=== PATIENT | female | born 2000 | race Caucasian/White ===

== ENCOUNTER 2020-11-04 03:04 | Emergency (ER) | payer MEDICAID, SELFPAY ==
--- NOTE | ~2020-11-04 | CT_ITS ---
EXAMINATION: CT ABDOMEN AND PELVIS WITH CONTRAST CLINICAL INFORMATION: Right-sided pain COMPARISON: None TECHNIQUE: Multidetector volumetric images were obtained from the superior aspect of the liver through the pubic symphysis following administration 85 mL of Omnipaque 350 intravenous contrast. Sagittal and coronal reformatted images were obtained on the technologist's workstation. Oral contrast: Yes This CT examination was performed using dose optimization techniques as appropriate, variously including the following: *Automated exposure control *Adjustment of mA and/or kV according to patient size (this includes techniques or standardized protocols for targeted exams where dose is matched to indication/reason for exam; i.e. extremities or head) *Use of iterative reconstruction technique DLP: 635 mGy-cm FINDINGS: LUNG BASES: The visualized lung bases are unremarkable. LIVER, GALLBLADDER, AND BILIARY TREE: The liver is normal in size, shape, and attenuation. No focal hepatic lesion or biliary ductal dilatation is present. The gallbladder is unremarkable with no evidence of radiopaque gallstones, gallbladder wall thickening, or obvious pericholecystic inflammatory changes. PANCREAS: Unremarkable. SPLEEN: Unremarkable. ADRENAL GLANDS: Unremarkable. KIDNEYS AND URETERS: There are 2 small stones in the midpole of the right kidney measuring 1 and 2 mm. The kidneys are otherwise unremarkable. BLADDER: Unremarkable. GASTROINTESTINAL TRACT: The small and large bowel are unremarkable. The appendix is unremarkable. ABDOMINAL WALL: No significant hernia is appreciated. LYMPH NODES: Normal. VASCULAR: Unremarkable. PELVIC VISCERA: Unremarkable. OSSEOUS STRUCTURES: Unremarkable. CT/CT abdomen pelvis w con IMPRESSION: Small nonobstructing right renal stones.
[2020-11-04 03:22] VITALS: BP 146/88; PULSE 90; RESP 18; TEMP 37.4; O2SAT 97; BMI 36.6
--- NOTE | 2020-11-04 05:16 | ED.ABDPAIN ---
HPI - Abdominal Pain General Chief Complaint: Abdominal Pain Stated Complaint: abd pain Time Seen by Provider: 11/04/20 05:16 Source: patient Mode of arrival: ambulatory History of Present Illness HPI narrative: 20-year-old female presents after initially being evaluated at [facility] for a spectrum of symptoms which range from ?head fullness, dizziness, nausea with abdominal fullness as well as intermittent right-sided pain that is sharp, nonradiating?. Patient states that her symptoms are more severe today and says that it feels like she can not stand. Patient reports blurred vision that lasted approximately 3 minutes. Related Data Allergies Allergy/AdvReac Type Severity Reaction Status Date / Time cucumber [CUCUMBER] Allergy Unknown HIVES Verified 11/04/20 03:22 Review of Systems Review of Systems Pertinent positives and negatives as stated in HPI 10 point review of systems is otherwise negative. Physical Exam Vital Signs: Vital Signs: Last Vital Signs Temp 99.3 F 11/04/20 03:22 Pulse 63 11/04/20 06:13 Resp 14 11/04/20 06:13 BP 113/71 11/04/20 06:13 Pulse Ox 98 11/04/20 06:13 Body Mass Index 36.6 VITAL SIGNS: Reviewed. GENERAL: Well developed, well nourished, in no acute distress. HEAD: Normocephalic/atraumatic EYES: PERRLA, EOMI intact without pain, no nystagmus EARS: Ext canals without abnormality, TMs non-bulging and non-erythematous NOSE: Nares patent bilateral OROPHARYNX: no oral lesions noted, posterior pharynx clear and non-erythematous without noted tonsillar enlargement/erythema/exudates NECK: Supple, no adenopathy LUNGS: Normal breath sounds. No adventitious sounds or accessory muscle use. SpO2<97> CARDIOVASCULAR: Regular rate and rhythm without noted murmurs, no JVD or lower extremity edema. ABDOMEN: Obese, Soft, right upper quadrant discomfort on deep palpation, non-distended with bowel sounds. MUSCULOSKELETAL: No tenderness, deformities, or effusions noted on gross inspection. EXTREMITIES: No cyanosis, clubbing or edema. SKIN: Inspection of the skin reveals no rashes, ulcerations, jaundice, pallor, or petechiae. NEUROLOGIC: Alert and oriented x 4. Strength and sensation to light touch were grossly intact x 4. Course Course Course Narrative: 20-year-old female with history and clinical presentation suggestive of possible viral syndrome. Review of all investigations is otherwise illustrated of of a leukocytosis of 14.5 and given patient's clinical findings of abdominal discomfort will proceed with a CT scan. Otherwise, urinalysis is within normal limits and COVID-19 testing is negative Signed out to Dr Wood. MDM - Abdominal Pain Lab Data Result diagrams: 11/04/20 05:28 11/04/20 05:28 Labs: Lab Results 11/04/20 11/04/20 11/04/20 Range/Units 05:28 05:28 05:28 WBC 14.5 H (4.8-10.8) X10*3/uL RBC 5.08 (4.20-5.50) X10*6/uL Hgb 13.9 (12.0-16.0) g/dl Hct 43.3 (37-47) % MCV 85.2 (80-98) fL MCH 27.4 (27.0-33.0) pg MCHC 32.1 (31.0-35.0) g/dl RDW 12.4 (11.0-16.0) % Plt Count 335 (160-400) X10*3/uL MPV 9.6 (9.4-12.3) fL Immature Gran % (Auto) 0.3 (0.0-0.4) % Neut % (Auto) 68.7 (45-73) % Lymph % (Auto) 22.2 (20-40) % [place] % (Auto) 6.6 (2-11) % Eos % (Auto) 1.7 (0-4) % Baso % (Auto) 0.5 (0-2) % Lymph # (Auto) 3.2 (1.2-4.9) X10*3/uL [place] # (Auto) 1.0 (0.1-1.2) X10*3/uL Eos # (Auto) 0.3 (0.0-0.4) X10*3/uL Baso # (Auto) 0.1 (0.0-0.2) X10*3/uL Abs Immat Gran (auto) 0.05 H (0.00-0.03) X10*3/uL Absolute Neuts (auto) 10.0 H (2.0-8.3) X10*3/uL Absolute Nucleated RBC 0.000 (0.0-0.012) X10*3/uL Nucleated RBC % (auto) 0.0 (0.0-0.2) /100WBC PT 11.5 (9.9-13.0) SEC INR 1.0 (0.9-1.1) Sodium 140 (135-145) mmol/L Potassium 4.4 (3.3-5.1) mmol/L Chloride 106 (96-108) mmol/L Carbon Dioxide 27 (22-29) mmol/L Anion Gap 11 L (12-20) BUN 9 (9-16) mg/dL Creatinine 0.84 (0.5-1.4) mg/dL Estim Creat Clear Calc 124.0 Estimated GFR > 60 Random Glucose 98 (60-115) mg/dL Calcium 9.4 (8.4-10.2) mg/dL Total Bilirubin < 0.2 (0.0-1.0) mg/dL AST 15 (5-31) U/L ALT 11 (0-31) U/L Alkaline Phosphatase 101 (39-117) U/L Total Protein 6.8 (6.5-8.0) g/dL Albumin 4.0 (3.5-5.0) g/dL Urine Color Urine Appearance Urine pH (5.0-8.0) Ur Specific [place] (1.005-1.025) Urine Protein (NEG-TRACE) MG/DL Urine Glucose (UA) (NEG) MG/DL Urine Ketones (NEG) MG/DL Urine Blood (NEG) Urine Nitrite (NEG) Ur Leukocyte Esterase (NEG) Urine Test (NEGATIVE) Coronavirus (PCR) (Negative) Influenza Type A (PCR) (Negative) Influenza Type B (PCR) (Negative) RSV RNA Qual (PCR) (Negative) 11/04/20 11/04/20 11/04/20 Range/Units 05:28 06:14 06:15 WBC (4.8-10.8) X10*3/uL RBC (4.20-5.50) X10*6/uL Hgb (12.0-16.0) g/dl Hct (37-47) % MCV (80-98) fL MCH (27.0-33.0) pg MCHC (31.0-35.0) g/dl RDW (11.0-16.0) % Plt Count (160-400) X10*3/uL MPV (9.4-12.3) fL Immature Gran % (Auto) (0.0-0.4) % Neut % (Auto) (45-73) % Lymph % (Auto) (20-40) % [place] % (Auto) (2-11) % Eos % (Auto) (0-4) % Baso % (Auto) (0-2) % Lymph # (Auto) (1.2-4.9) X10*3/uL [place] # (Auto) (0.1-1.2) X10*3/uL Eos # (Auto) (0.0-0.4) X10*3/uL Baso # (Auto) (0.0-0.2) X10*3/uL Abs Immat Gran (auto) (0.00-0.03) X10*3/uL Absolute Neuts (auto) (2.0-8.3) X10*3/uL Absolute Nucleated RBC (0.0-0.012) X10*3/uL Nucleated RBC % (auto) (0.0-0.2) /100WBC PT (9.9-13.0) SEC INR (0.9-1.1) Sodium (135-145) mmol/L Potassium (3.3-5.1) mmol/L Chloride (96-108) mmol/L Carbon Dioxide (22-29) mmol/L Anion Gap (12-20) BUN (9-16) mg/dL Creatinine (0.5-1.4) mg/dL Estim Creat Clear Calc Estimated GFR Random Glucose (60-115) mg/dL Calcium (8.4-10.2) mg/dL Total Bilirubin (0.0-1.0) mg/dL AST (5-31) U/L ALT (0-31) U/L Alkaline Phosphatase (39-117) U/L Total Protein (6.5-8.0) g/dL Albumin (3.5-5.0) g/dL Urine Color YELLOW Urine Appearance CLEAR Urine pH 6.0 (5.0-8.0) Ur Specific [place] 1.025 (1.005-1.025) Urine Protein NEG (NEG-TRACE) MG/DL Urine Glucose (UA) NEG (NEG) MG/DL Urine Ketones NEG (NEG) MG/DL Urine Blood NEG (NEG) Urine Nitrite NEG (NEG) Ur Leukocyte Esterase NEG (NEG) Urine Test NEGATIVE (NEGATIVE) Coronavirus (PCR) NEGATIVE (Negative) Influenza Type A (PCR) NEGATIVE (Negative) Influenza Type B (PCR) NEGATIVE (Negative) RSV RNA Qual (PCR) NEGATIVE (Negative) Discharge Plan Discharge Clinical Impression: Abdominal discomfort Patient Disposition: Home, Self-Care Instructions: Viral Syndrome (ED) [facility] Past Medical History Source: nursing notes reviewed Social History Social History Advance Directives: No Advance Directives Information Provided: Yes Patient : No
[2020-11-04 05:31] LABS: MANUAL DIFF FLAG NO
[2020-11-04 05:37] LABS: Basophils Absolute Auto 0.1 X10*3/uL (0.0-0.2); Basophils Percent Auto 0.5 % (0-2); Eosinophils Absolute Auto 0.3 X10*3/uL (0.0-0.4); Eosinophils Percent Auto 1.7 % (0-4); Hematocrit 43.3 % (37-47); Hemoglobin 13.9 g/dl (12.0-16.0); Imm Gran Abs Auto 0.05 X10*3/uL (0.00-0.03); Imm Gran Pct Auto 0.3 % (0.0-0.4); Lymphocytes Absolute Auto 3.2 X10*3/uL (1.2-4.9); Lymphocytes Percent Auto 22.2 % (20-40); Mean Corpuscular HGB Conc 32.1 g/dl (31.0-35.0); Mean Corpuscular Hemoglobin 27.4 pg (27.0-33.0); Mean Corpuscular Volume 85.2 fL (80-98); Mean Platelet Volume 9.6 fL (9.4-12.3); Monocytes Percent Auto 6.6 % (2-11); Neutrophils Percent Auto 68.7 % (45-73); Platelet Count 335 X10*3/uL (160-400); Red Blood Count 5.08 X10*6/uL (4.20-5.50); Red Cell Distribution Width 12.4 % (11.0-16.0); White Blood Count 14.5 X10*3/uL (4.8-10.8)
[2020-11-04 05:48] LABS: Prothrombin Time 11.5 SEC (9.9-13.0)
[2020-11-04 06:00] VITALS: BP 113/71; PULSE 65; RESP 16; O2SAT 97
[2020-11-04 06:02] LABS: Alanine Aminotransferase 11 U/L (0-31); Alkaline Phosphatase 101 U/L (39-117); Anion Gap 11 (12-20); Aspartate Amino Transferase 15 U/L (5-31); Bilirubin Total < 0.2 mg/dL (0.0-1.0); Blood Urea Nitrogen 9 mg/dL (9-16); Calcium 9.4 mg/dL (8.4-10.2); Carbon Dioxide 27 mmol/L (22-29); Chloride 106 mmol/L (96-108); Estimated Glomerular Filt Rate > 60; Glucose Random 98 mg/dL (60-115); Potassium 4.4 mmol/L (3.3-5.1); Sodium 140 mmol/L (135-145); Total Protein 6.8 g/dL (6.5-8.0)
[2020-11-04 06:13] VITALS: BP 113/71; PULSE 63; RESP 14; O2SAT 98
[2020-11-04 06:20] LABS: Appearance Urine CLEAR; Color Urine YELLOW; Glucose Urine UA NEG (NEG); Leukocyte Esterase Urine NEG (NEG); Nitrite Urine NEG (NEG); Specific Gravity - Urine 1.025 (1.005-1.025); Urine Blood NEG (NEG); Urine Ketones NEG (NEG); Urine Protein NEG (NEG-TRACE)
[2020-11-04 06:21] LABS: UACC Culture Trigger NO
[2020-11-04 06:22] LABS: UPreg QC Valid YES; Urine Pregnancy NEGATIVE (NEGATIVE)
[2020-11-04 06:26] LABS: Influenza A PCR NEGATIVE (Negative); Influenza B PCR NEGATIVE (Negative); Resp Syncy Virus RNA Qual PCR NEGATIVE (Negative); SARS COV2 PCR INHOUSE NEGATIVE (Negative)
[2020-11-04] MEDS: 0.9 % Sodium Chloride 1,000 ML 999 ML IV (07:38)
[2020-11-04 08:00] VITALS: BP 92/68; PULSE 84; RESP 18; TEMP 36.8; O2SAT 97
[2020-11-04] MEDS: iohexoL 350 MG/ML 100 ML INFUS..BTL IV (08:44)
== END 2020-11-04 09:53 | disposition home or self-care (01) ==
PROVIDERS: Emergency Provider Student in an Organized Health Care Education/Training Program
DX: R10.9 Unspecified abdominal pain (principal); Z20.822 Contact with and (suspected) exposure to COVID-19; Z79.899 Other long term (current) drug therapy
CPT/HCPCS: 0241U; 36415; 74177; 80053; 81003; 81025; 85025; 85610; 96360; 99284; Q9967

== ENCOUNTER 2023-04-16 12:28 | Emergency (ER) | payer OTHER, SELFPAY ==
--- NOTE | ~2023-04-16 | CT_ITS ---
EXAMINATION: CT head/brain wo IV con CLINICAL INFORMATION: Reason for Exam dizziness, headache COMPARISON: None. TECHNIQUE: Contiguous axial imaging was performed from the skull base to vertex without intravenous contrast. Sagittal and coronal reformatted images were obtained. This CT examination was performed using dose optimization techniques as appropriate, variously including the following: * Automated exposure control * Adjustment of mA and/or kV according to patient size (this includes techniques or standardized protocols for targeted exams where dose is matched to indication/reason for exam; i.e. extremities or head) Use of iterative reconstruction technique DLP: 592.61 mGy-cm mGy-cm FINDINGS: There is no evidence of acute intracranial hemorrhage. No mass-effect or ventricular shift is noted. No acute, territorial loss of colunga-white differentiation. The ventricles and sulci are appropriate in size and configuration for the patient's stated age. No depressed calvarial fracture. Visualized paranasal sinuses are essentially clear. The mastoid air cells are clear. CT/CT head/brain wo IV con IMPRESSION: No acute intracranial hemorrhage or territorial loss of colunga-white differentiation.
[2023-04-16 12:39] VITALS: BP 128/83; PULSE 103; RESP 19; TEMP 36.6; O2SAT 98; BMI 40.8
--- NOTE | 2023-04-16 12:44 | ED.GENADULT ---
HPI - General Adult General Chief complaint: Dizziness Stated complaint: dizzy feels funny Time Seen by Provider: 04/16/23 17:49 Source: patient and RN notes reviewed Mode of arrival: ambulatory Limitations: no limitations History of Present Illness HPI narrative: This is a 23-year-old female, with no known medical problems, presenting to the emergency department for evaluation of ongoing headache x2 weeks and dizziness since this morning. Patient states that over the course of this past 2 weeks she has had ongoing constant headache, states that the pain sometimes occurs in her front of her head, side of head. Patient reports that upon wakening this morning she felt dizzy. She states that the dizziness worsens with lying down. She endorses some chills, denies fevers, chest pain, shortness breast, abdominal pain, vomiting or diarrhea. She reports that the headache that she currently has not the worst headache of her life. Denies any syncopal episodes, head strike, or head trauma. She went to an urgent care for her headaches several days ago was prescribed which she has been taking without relief. Denies any other complaints or concerns at this time. MD complaint: Headache, dizziness Onset (ago): day(s) Location: head Radiation: non-radiation Quality: dull and constant Pain Consistency: constant Relieving factors: none Exacerbating factors: none Associated symptoms: denies other symptoms Related Data Previous Rx's Medication Instructions Recorded ondansetron HCl 4 mg tablet 4 mg PO Q8H 3 days #9 tabs 11/04/20 (Zofran) Allergies Allergy/AdvReac Type Severity Reaction Status Date / Time cucumber [CUCUMBER] Allergy Unknown HIVES Verified 04/16/23 12:39 Review of Systems Review of Systems: Yes all other systems are reviewed and are negative Constitutional: Constitutional: Reports as per [facility] Social History Social History Smoked in Last 30 Days: No Advance Directives: No Advance Directives Information Provided: No Patient : No Physical Exam ED Vital Signs: Vital Signs - 24 hr 04/16/23 12:39 04/16/23 18:20 04/16/23 18:22 Temperature 98 F Pulse Rate 103 H 75 77 Respiratory Rate 19 Blood Pressure 128/83 130/70 121/73 Pulse Oximetry 98 Oxygen Delivery Method Room Air 04/16/23 18:23 04/16/23 18:23 Temperature 98.1 F Pulse Rate 88 88 Respiratory Rate 18 Blood Pressure 134/69 134/69 Pulse Oximetry 99 Oxygen Delivery Method Room Air BMI result Body Mass Index 40.8 Const General: cooperative, comfortable and no acute distress Orientation/consciousness: patient oriented x3 Limitations: no limitations HENMT Head: Yes normal to inspection, Yes normocephalic and Yes atraumatic Ears: hearing grossly normal bilaterally General nose exam: Normal external nose present Face and sinus: Yes normal facial exam Mouth: Normal oral and palatal mucosa present, oropharynx normal and moist mucous membranes Throat: Yes posterior oropharynx normal Eyes General: appearance normal, both eyes and all related structures Eyelids: Yes eyelids normal Conjunctivae: conjunctivae normal Sclerae: sclerae normal Pupils: Equal, round and reactive pupils present EOM: EOMs intact bilaterally Neck Neck: Yes normal visual inspection, Yes full ROM and Yes no lymphadenopathy Lymphatic: no lymphadenopathy noted Chest Chest palpation & inspection: normal inspection of the chest Resp Effort & Inspection: normal respiratory effort and able to speak in complete sentences Auscultation: clear to auscultation bilaterally, no crackles, no rales, no rhonchi and no wheezes Cardio Rate: regular rate Rhythm: regular rhythm Heart sounds: S1 normal heart sound present and S2 normal heart sound present GI Inspection: Yes normal to inspection Skin General skin exam: no rashes or lesions noted Trauma: no lacerations or abrasions Wounds: no wounds Neuro General: patient oriented x3 and moves all extremities Cranial nerves: Yes CN's II-XII intact bilaterally and Yes Equal, round and reactive pupils present Cognition (Neuro): normal cognition Gait exam (Neuro): Normal gait present Motor exam (neuro): 5/5 motor strength present throughout and Pronator motor function not present Coordination: bhjsie-me-pnec test normal, [id number] test normal and Romberg test positive Romberg Test: Negative Extrem General: Yes normal to inspection Right upper extremity: normal to inspection Left upper extremity: normal to inspection Right lower extremity: normal to inspection Left lower extremity: normal to inspection Course Course Course Narrative: RME:?23 year old female here for dizziness and nausea on waking this morning. states she feels like she is on a water bed. dizziness worse with head movements. endorses intermittent scalp tenderness. denies fever, chills, vomiting, jaw claudication. Was recently placed on naproxen for migraines by Urgent Care. PE: tachy. +romberg sign, mild scalp tenderness. no palpable temporal aa. basic labs, inflammatory markers, u preg ordered. pt/inr ordered +/- ddimer per provider. +/- imaging per primary provider Full HPI, ROS and PE to be performed by the primary ED provider. Reevaluation(s) Reevaluation #1: Patient received in sign-out at change of shift pending CT scan and re-evaluation. She reports feeling improvement from her symptoms, is not feeling dizzy at the wound. Her CT scan results discussed with her with no significant abnormalities. Time: 20:58 Medications Administered Discontinued Medications Generic Name Dose Route Start Last Admin Trade Name Debra PRN Reason Stop Dose Admin Sodium Chloride 1,000 mls @ 999 mls/hr 04/16/23 18:17 04/16/23 19:51 Ns IV 04/16/23 19:17 999 mls/hr .Q1H1M ONE Administration Meclizine HCl 25 mg 04/16/23 18:16 04/16/23 19:49 Meclizine Hcl 25 Mg Tablet PO 04/16/23 18:17 25 mg ONCE ONE Administration Medical Decision Making Medical Decision Making MDM Narrative: This is a 23-year-old female presenting to the emergency department with complaints of headache x2 weeks, as well as dizziness and nausea which started this morning. Upon arrival to the emergency room, slight tachycardia at 1:03 a.m., which has since improved over the course of her stay in the emergency room. Differential diagnoses include BPPV, orthostatic hypotension, intracranial mass, electrolyte derangement, dehydration. She is neurologically intact, however during examination, profound dizziness when she is lying down, resolved when she is sitting upwards. Given symptoms are consistent with vertigo, will treat with meclizine p.o., IV fluids. Given that she has not had a CT scan of her head, will obtain CT imaging to rule out any sort of intracranial process. She has not orthostatic. Plan: Labs, viral swabs, U preg, orthostatic vital signs, CT head Differential Diagnosis Differential Diagnoses: The differential diagnosis associated with the presentation includes See above Admission/Observation Consideration of admission/observation: Escalation of care including admission/observation considered Patient would have been admitted to the hospital had her work up had any findings where hospital admission was appropriate and her clinical presentation warranted hospital admission. Lab Data MDM Lab Attestation statement: I reviewed the patient's lab results. Slight leukocytosis at 11.6, chemistry within normal limits. Slight elevation there CRP and ESR, nonspecific. Negative COVID, flu, influenza 04/16/23 12:52 04/16/23 12:52 Labs: Lab Results 04/16/23 04/16/23 Range/Units 12:52 14:38 WBC 11.6 H (4.8-10.8) X10*3/uL RBC 5.47 (4.20-5.50) X10*6/uL Hgb 14.6 (12.0-16.0) g/dl Hct 45.1 (37.0-47.0) % MCV 82.4 (80.0-98.0) fL MCH 26.7 L (27.0-33.0) pg MCHC 32.4 (31.0-35.0) g/dl RDW 13.2 (11.0-16.0) % Plt Count 331 (160-400) X10*3/uL MPV 9.6 (9.4-12.3) fL Immature Gran % (Auto) 0.3 (0.0-0.4) % Neut % (Auto) 59.9 (45-73) % Lymph % (Auto) 31.9 (20-40) % [place] % (Auto) 5.0 (2-11) % Eos % (Auto) 2.4 (0-4) % Baso % (Auto) 0.5 (0-2) % Lymph # (Auto) 3.7 (1.2-4.9) X10*3/uL [place] # (Auto) 0.6 (0.1-1.2) X10*3/uL Eos # (Auto) 0.3 (0.0-0.4) X10*3/uL Baso # (Auto) 0.1 (0.0-0.2) X10*3/uL Abs Immat Gran (auto) 0.03 (0.00-0.03) X10*3/uL Absolute Neuts (auto) 7.0 (2.0-8.3) x10*3/uL Absolute Nucleated RBC 0.000 (0.0-0.012) X10*3/uL Nucleated RBC % (auto) 0.0 (0.0-0.2) /100WBC ESR 23 H (0-20) MM/HR PT 12.7 (11.1-13.3) SEC INR 1.0 (0.9-1.1) Sodium 140 (135-145) mmol/L Potassium 3.5 (3.3-5.1) mmol/L Chloride 109 H (96-108) mmol/L Carbon Dioxide 23 (22-29) mmol/L Anion Gap 12 (12-20) BUN 10 (9-16) mg/dL Creatinine 0.79 (0.5-1.4) mg/dL Estim Creat Clear Calc 136.3 Estimated GFR > 60 Random Glucose 107 (60-115) mg/dL Calcium 9.2 (8.4-10.2) mg/dL Magnesium 2.1 (1.6-2.6) mg/dL C-Reactive Protein 0.69 H (< or = 0.50) mg/dL Influenza Type A (PCR) NEGATIVE (Negative) Influenza Type B (PCR) NEGATIVE (Negative) RSV RNA Qual (PCR) NEGATIVE (Negative) SARS-CoV-2 RNA (RT-PCR) NEGATIVE (Negative) Discharge Plan Discharge Clinical Impression: Dizziness Patient Disposition: Home, Self-Care Instructions: Vertigo (ED), Lightheadedness (ED), Dizziness (ED) Additional Instructions: You were seen in the emergency department due to headache and dizziness. You tested negative for COVID, flu, and RSV. Your blood work was reassuring. Your CT of your head reveals no significant abnormality Please follow-up with your primary care physician regarding this visit. If any new or worsening symptoms occur including but not limited to headache, worsening dizziness, chest pain or shortness a breath, please return for re-evaluation. Prescriptions: No Action ondansetron HCl [Zofran] 4 mg tablet 4 mg PO Q8H 3 Days Qty: 9 0RF
[2023-04-16 12:55] LABS: MANUAL DIFF FLAG NO
[2023-04-16 12:58] LABS: Basophils Absolute Auto 0.1 X10*3/uL (0.0-0.2); Basophils Percent Auto 0.5 % (0-2); Eosinophils Absolute Auto 0.3 X10*3/uL (0.0-0.4); Eosinophils Percent Auto 2.4 % (0-4); Hematocrit 45.1 % (37.0-47.0); Hemoglobin 14.6 g/dl (12.0-16.0); Imm Gran Abs Auto 0.03 X10*3/uL (0.00-0.03); Imm Gran Pct Auto 0.3 % (0.0-0.4); Lymphocytes Absolute Auto 3.7 X10*3/uL (1.2-4.9); Lymphocytes Percent Auto 31.9 % (20-40); Mean Corpuscular HGB Conc 32.4 g/dl (31.0-35.0); Mean Corpuscular Hemoglobin 26.7 pg (27.0-33.0); Mean Corpuscular Volume 82.4 fL (80.0-98.0); Mean Platelet Volume 9.6 fL (9.4-12.3); Monocytes Absolute Auto 0.6 X10*3/uL (0.1-1.2); Neutrophils Percent Auto 59.9 % (45-73); Platelet Count 331 X10*3/uL (160-400); Red Blood Count 5.47 X10*6/uL (4.20-5.50); Red Cell Distribution Width 13.2 % (11.0-16.0); White Blood Count 11.6 X10*3/uL (4.8-10.8)
[2023-04-16 13:06] LABS: Prothrombin Time 12.7 SEC (11.1-13.3)
[2023-04-16 13:12] LABS: Anion Gap 12 (12-20); Blood Urea Nitrogen 10 mg/dL (9-16); C Reactive Protein 0.69 mg/dL (< or = 0.50); Calcium 9.2 mg/dL (8.4-10.2); Carbon Dioxide 23 mmol/L (22-29); Chloride 109 mmol/L (96-108); Creatinine Clr Calc Pharmacy 136.3; Estimated Glomerular Filt Rate > 60; Glucose Random 107 mg/dL (60-115); Magnesium 2.1 mg/dL (1.6-2.6); Potassium 3.5 mmol/L (3.3-5.1); Sodium 140 mmol/L (135-145)
[2023-04-16 13:39] LABS: Erythrocyte Sedimentation Rate 23 MM/HR (0-20)
[2023-04-16 15:39] LABS: Influenza A PCR NEGATIVE (Negative); Influenza B PCR NEGATIVE (Negative); Resp Syncy Virus RNA Qual PCR NEGATIVE (Negative); SARS COV2 PCR INHOUSE NEGATIVE (Negative)
[2023-04-16 18:20] VITALS: BP 130/70; PULSE 75
[2023-04-16 18:22] VITALS: BP 121/73; PULSE 77
[2023-04-16 18:23] VITALS: BP 134/69; PULSE 88; RESP 18; TEMP 36.7; O2SAT 99
[2023-04-16] MEDS: Meclizine HCl 25 MG TABLET PO (19:49)
[2023-04-16] MEDS: 0.9 % Sodium Chloride 1,000 ML 999 ML IV (19:51)
== END 2023-04-16 21:40 | disposition home or self-care (01) ==
PROVIDERS: Physician Assistant Medical; Emergency Provider Internal Medicine
DX: R42 Dizziness and giddiness (principal); R51.9 Headache, unspecified; R00.0 Tachycardia, unspecified; Z11.52 Encounter for screening for COVID-19; Z20.828 Contact with and (suspected) exposure to other viral communicable diseases
CPT/HCPCS: 0241U; 36415; 70450; 80048; 83735; 85025; 85610; 85652; 86140; 99284

== ENCOUNTER 2023-12-02 15:02 | Emergency (ER) | payer OTHER, SELFPAY ==
--- NOTE | ~2023-12-02 | XR_ITS ---
EXAMINATION: XR CHEST CLINICAL INFORMATION: Chest pain. Shortness of breath. Recent cough. COMPARISON: Chest x-ray June 17, 2018 TECHNIQUE: 2 views of the chest were obtained. FINDINGS: No significant abnormality is noted involving the heart, lungs, mediastinum, bony thorax or soft tissues. XR/XR chest 2V IMPRESSION: Unremarkable examination. Electronically signed by: Alex Rider MD 12/02/2023 05:06 PM EDT RP
--- NOTE | 2023-12-02 15:09 | ECG_ITS ---
Test Reason : chest pain Blood Pressure : / mmHG Vent. Rate : 097 BPM Atrial Rate : 097 BPM P-R Int : 142 ms QRS Dur : 074 ms QT Int : 332 ms P-R-T Axes : 042 035 020 degrees QTc Int : 421 ms Normal sinus rhythm Normal ECG When compared with ECG of 17-JUN-2018 21:32, Nonspecific T wave abnormality now evident in Anterior leads Referred By: Kelsi Torres Electronically Signed By:JAYDON MEDINA MD
--- NOTE | 2023-12-02 15:25 | ED_ITS ---
HPI - General Adult General Chief complaint: Chest Pain Stated complaint: chest pain/cold sweats Time Seen by Provider: 12/02/23 17:29 Source: patient Mode of arrival: ambulatory Limitations: no limitations History of Present Illness ED Provider: CASEY JOSEPH PA-C HPI narrative: 23 year old female with no significant pmhx presents to the ED today for evaluation of chest pain x3 days. Admits to pressure sensation in the center of her chest intermittently. Pain does not radiate and is reproducible with palpation of her chest. Reports associated cold sweats throughout the day and occasional shortness of breath. Denies pain exacerbation with deep breathing. Admits to upper respiratory infection a few weeks ago and is concerned she may have another one. Denies cough, hemoptysis, palpitations, fever/chills, calf pain/swelling. She denies recent tick or insect bites and reports testing negative for Lyme approx 4 weeks ago. Denies recent travel or long car rides. Denies OCP use. No recent anxiety or stressors. Related Data Previous Rx's ?Medication ?Instructions ?Recorded ondansetron HCl 4 mg tablet 4 mg PO Q8H 3 days #9 tabs 11/04/20 (Zofran) meclizine 25 mg tablet 25 mg PO TID PRN dizziness #20 tabs 04/16/23 prednisone 20 mg tablet 20 mg PO DAILY 5 days #5 tabs 12/02/23 Allergies Allergy/AdvReac Type Severity Reaction Status Date / Time cucumber [CUCUMBER] Allergy Unknown HIVES Verified 12/02/23 15:27 Review of Systems 2 Review of Systems: Constitutional: No fever, chills, fatigue, night sweats, weight changes ENT/Mouth: No ear pain, hearing loss, nasal congestion, sinus pain, rhinorrhea, sore throat Eyes: No eye pain, swelling, redness, vision changes, discharge Cardio: No palpitations, SCHMITT, orthopnea, peripheral edema, +chest pain Pulm: No SOB, cough, sputum, wheezing, dyspnea, hemoptysis GI: No nausea, vomiting, hematemesis, abdominal pain, diarrhea, constipation, hematochezia, melena : No irregular bleeding, dysuria, frequency, urgency, hesitancy, hematuria, flank pain, urinary flow changes, urinary incontinence or retention MSK: No back pain, neck pain, joint pain, myalgias Skin: No lesions, rashes Neuro: No weakness, numbness, paresthesias, LOC, dizziness, headache Psych: No anxiety/panic, depression, SI/HI, AH/VH All other systems reviewed and are negative. [facility] Past Medical History Attestation statement: The following information was validated with the patient. Source: old records reviewed and nursing notes reviewed Physical Exam ED Vital Signs: Vital Signs - 24 hr 12/02/23 15:26 Temperature 97.4 F Pulse Rate 92 Respiratory Rate 20 Blood Pressure 144/78 H Pulse Oximetry 98 Oxygen Delivery Method Room Air BMI result Body Mass Index 35.7 Hypertensive, vitals otherwise wnl General: Well appearing, in no acute distress. Skin: Warm, dry, intact. No rashes or lesions. Head: Normocephalic, atraumatic. EENT: Hearing is intact b/l. Conjunctiva clear. PERRLA. Moist mucous membranes.? Neck: Supple without LAD Cardiac: Chest wall symmetric. RRR. +reproducible anterior chest wall tenderness without palpable deformity or crepitus. Lungs: Normal respiratory effort without accessory muscle use. CTA bilaterally. No rales, rhonchi, or wheezes.? Abdomen: Soft, non-tender, non-distended Back: No midline spinous or paraspinal tenderness. No step off deformity. Ext: Upper and lower extremities atraumatic, without tenderness, deformity, swelling or erythema. Full ROM throughout. No calf tenderness b/l. Neuro: AOx3. Normal speech. Ambulating with steady gait. Psych: Appropriate mood and affect. Responds appropriately to questions. Course Course Course Narrative: This is a rapid medical exam performed by Kizzy Torres NP: Additional HPI, ROS, PE not included below will be deferred to primary provider. Patient is a 23-year-old female presenting with complaint of squeezing chest pain, cold sweats at night. Had a URI a few weeks ago, unsure if related. Also complains of shortness of breath. Plan: EKG, labs, CXR, viral serology Reevaluation(s) Reevaluation #1: 5450 -- CBC with chronically elevated WBC at 13.3, stable when compared to priors. Of unknown significance. No left shift. No anemia. H&H stable. Chemistry without acute electrolyte abnormality requiring intervention. Normal kidney function. Normal liver function. Troponin undetectable, ACS unlikely. Beta HCG undetectable. Not . She tested negative for COVID, flu, RSV. Chest x-ray does not demonstrate infiltrate or consolidation. No obvious pneumonia or effusion. EKG showing normal sinus rhythm with a rate of 97 beats per minute, QT 332, QTC 421, no acute ischemic changes or ST elevations. > given reproducible tenderness, likely msk in etiology. treated with toradol in ED. advised to alternate tylenol/ motrin at home. will trial short course of prednisone. cardiology referral provided. advised to follow up with pcp as well. Patient has remained stable throughout ED visit today. Discussed worrisome signs and symptoms and when to return to the ED. All questions answered at this time. Patient is agreeable with disposition and stable for discharge. Medical Decision Making Medical Decision Making [facility] Narrative: This patient presents with chest pain, with symptoms suggestive of noncardiac chest pain.? History without high risk features (not substernal, no exertional component, not relieved with rest).? Minimal CAD risk factors (including age). Exam without evidence of volume overload. EKG without signs of active ischemia. Differential diagnosis includes costochondritis, pleuritis, msk sprain/ strain, viral syndrome, pneumonia Given the timing of pain to ED presentation, plan to send single troponin to evaluate for NSTEMI. Presentation not consistent with acute PE (PERC negative), pneumothorax, thoracic aortic dissection, cardiac effusion or tamponade. Plan: labs, troponin, EKG, CXR, viral serology, pain control, reassessment Differential Diagnosis Differential Diagnoses: The differential diagnosis associated with the presentation includes as above. Admission/Observation Not indicated. Lab Data [facility] Lab Attestation statement: I reviewed the patient's lab results. as above. 12/02/23 16:25 12/02/23 16:25 Labs: Lab Results 12/02/23 12/02/23 Range/Units 16:22 16:25 WBC 13.3 H (4.8-10.8) X10*3/uL RBC 4.98 (4.20-5.50) X10*6/uL Hgb 13.8 (12.0-16.0) g/dl Hct 41.5 (37.0-47.0) % MCV 83.3 (80.0-98.0) fL MCH 27.7 (27.0-33.0) pg MCHC 33.3 (31.0-35.0) g/dl RDW 13.2 (11.0-16.0) % Plt Count 316 (160-400) X10*3/uL MPV 9.7 (9.4-12.3) fL Immature Gran % (Auto) 0.3 (0.0-0.4) % Neut % (Auto) 65.4 (45-73) % Lymph % (Auto) 25.8 (20-40) % [place] % (Auto) 6.4 (2-11) % Eos % (Auto) 1.5 (0-4) % Baso % (Auto) 0.6 (0-2) % Lymph # (Auto) 3.4 (1.2-4.9) X10*3/uL [place] # (Auto) 0.9 (0.1-1.2) X10*3/uL Eos # (Auto) 0.2 (0.0-0.4) X10*3/uL Baso # (Auto) 0.1 (0.0-0.2) X10*3/uL Abs Immat Gran (auto) 0.04 H (0.00-0.03) X10*3/uL Absolute Neuts (auto) 8.7 H (2.0-8.3) x10*3/uL Absolute Nucleated RBC 0.000 (0.0-0.012) X10*3/uL Nucleated RBC % (auto) 0.0 (0.0-0.2) /100WBC Sodium 142 (135-145) mmol/L Potassium 3.8 (3.3-5.1) mmol/L Chloride 110 H (96-108) mmol/L Carbon Dioxide 24 (22-29) mmol/L Anion Gap 12 (12-20) BUN 10 (9-16) mg/dL Creatinine 0.78 (0.5-1.4) mg/dL Estim Creat Clear Calc 132.9 Estimated GFR > 60 Random Glucose 95 (60-115) mg/dL Calcium 9.0 (8.4-10.2) mg/dL Total Bilirubin 0.3 (0.0-1.0) mg/dL AST 15 (5-31) U/L ALT 16 (0-31) U/L Alkaline Phosphatase 103 (39-117) U/L Troponin I High Sens < 2.7 (<3.5-17.0) ng/L Total Protein 7.0 (6.5-8.0) g/dL Albumin 3.8 (3.5-5.0) g/dL Beta HCG, Quant < 2 mIU/mL Influenza Type A (PCR) NEGATIVE (Negative) Influenza Type B (PCR) NEGATIVE (Negative) RSV RNA Qual (PCR) NEGATIVE (Negative) SARS-CoV-2 RNA (RT-PCR) NEGATIVE (Negative) Independent Interpretation I performed an independent interpretation of an: EKG and Plain X-Ray Interpretation: EKG showing normal sinus rhythm with a rate of 97 beats per minute, QT 332, QTC 421, no acute ischemic changes or ST elevations. CXR without consolidation or infiltrate, agree with radiologist's interpretation. Radiology Impression Discussion of test interpretation with radiology: I have reviewed the radiologist's reading. Radiologist Impression: EXAMINATION: XR CHEST CLINICAL INFORMATION: Chest pain. Shortness of breath. Recent cough. COMPARISON: Chest x-ray June 17, 2018 TECHNIQUE: 2 views of the chest were obtained. FINDINGS: No significant abnormality is noted involving the heart, lungs, mediastinum, bony thorax or soft tissues. XR/XR chest 2V IMPRESSION: Unremarkable examination. Electronically signed by: Alex Rider MD 12/02/2023 05:06 PM EDT External Record Review External record reviewed: Inpatient record and Office record Prescription Management I considered prescription management with: Other (prednisone) Social Determinants Patient?s care significantly limited by Social Determinants of Health including: Other Social Determinant of Health Critical Care Time Critical Care Time Critical Care Time: No Discharge Plan Discharge Clinical Impression: Atypical chest pain Patient Disposition: Home, Self-Care Instructions: Chest Pain (ED), Chest Wall Pain (ED) Additional Instructions: You were evaluated in the Emergency Department today for chest pain. Your evaluation has shown no signs of medical conditions requiring emergent intervention at this time, however I recommend that you follow up with your primary care provider or your master control engineer as soon as possible for further testing as an outpatient. If you do not have one, a referral has been provided. Please call them to make an appointment, they will not call you. I recommend you take 600mg ibuprofen every 6 hours or Tylenol 650mg every 6 hours as needed for pain. If needed, you can alternate these medications so that you take one medication every 3 hours. For example, at noon take ibuprofen, then at 3pm take Tylenol, then at 6pm take ibuprofen. As discussed, I have also sent a short course of prednisone (steroid) to your pharmacy to help with inflammation. Return to the Emergency Department if you experience worsening or uncontrolled chest pain, shortness of breath, light headedness, feeling faint, nausea, vomiting, or any other concerning symptoms. Prescriptions: New prednisone 20 mg tablet 20 mg PO DAILY 5 Days Qty: 5 0RF No Action ondansetron HCl [Zofran] 4 mg tablet 4 mg PO Q8H 3 Days Qty: 9 0RF meclizine 25 mg tablet 25 mg PO TID PRN (Reason: dizziness) Qty: 20 0RF Referrals: [facility] [Provider Group] Cathi Zimmerman MD [Primary Care Provider] - Discharge Date/Time: 12/02/23 17:51 Print Language: British
[2023-12-02 15:26] VITALS: BP 144/78; PULSE 92; RESP 20; TEMP 36.3; O2SAT 98; BMI 35.7
[2023-12-02 16:31] LABS: MANUAL DIFF FLAG NO
[2023-12-02 16:37] LABS: Basophils Absolute Auto 0.1 X10*3/uL (0.0-0.2); Basophils Percent Auto 0.6 % (0-2); Eosinophils Absolute Auto 0.2 X10*3/uL (0.0-0.4); Eosinophils Percent Auto 1.5 % (0-4); Hematocrit 41.5 % (37.0-47.0); Hemoglobin 13.8 g/dl (12.0-16.0); Imm Gran Abs Auto 0.04 X10*3/uL (0.00-0.03); Imm Gran Pct Auto 0.3 % (0.0-0.4); Lymphocytes Absolute Auto 3.4 X10*3/uL (1.2-4.9); Lymphocytes Percent Auto 25.8 % (20-40); Mean Corpuscular HGB Conc 33.3 g/dl (31.0-35.0); Mean Corpuscular Hemoglobin 27.7 pg (27.0-33.0); Mean Corpuscular Volume 83.3 fL (80.0-98.0); Mean Platelet Volume 9.7 fL (9.4-12.3); Monocytes Absolute Auto 0.9 X10*3/uL (0.1-1.2); Monocytes Percent Auto 6.4 % (2-11); Neutrophils Absolute Auto 8.7 x10*3/uL (2.0-8.3); Neutrophils Percent Auto 65.4 % (45-73); Platelet Count 316 X10*3/uL (160-400); Red Blood Count 4.98 X10*6/uL (4.20-5.50); Red Cell Distribution Width 13.2 % (11.0-16.0); White Blood Count 13.3 X10*3/uL (4.8-10.8)
[2023-12-02 16:55] LABS: Alanine Aminotransferase 16 U/L (0-31); Albumin Level 3.8 g/dL (3.5-5.0); Alkaline Phosphatase 103 U/L (39-117); Anion Gap 12 (12-20); Aspartate Amino Transferase 15 U/L (5-31); Bilirubin Total 0.3 mg/dL (0.0-1.0); Blood Urea Nitrogen 10 mg/dL (9-16); Carbon Dioxide 24 mmol/L (22-29); Chloride 110 mmol/L (96-108); Creatinine Clr Calc Pharmacy 132.9; Estimated Glomerular Filt Rate > 60; Glucose Random 95 mg/dL (60-115); Potassium 3.8 mmol/L (3.3-5.1); Sodium 142 mmol/L (135-145)
[2023-12-02 16:59] LABS: HCG Quantitative < 2 mIU/mL; Troponin-I High Sensitivity < 2.7 ng/L (<3.5-17.0)
[2023-12-02 17:17] LABS: Influenza A PCR NEGATIVE (Negative); Influenza B PCR NEGATIVE (Negative); Resp Syncy Virus RNA Qual PCR NEGATIVE (Negative); SARS COV2 PCR INHOUSE NEGATIVE (Negative)
[2023-12-02] MEDS: Ketorolac Tromethamine 30 MG/ML VIAL IM (17:47)
[2023-12-02 17:50] VITALS: BP 144/78; PULSE 92; RESP 18; TEMP 36.3; O2SAT 98
== END 2023-12-02 17:51 | disposition home or self-care (01) ==
PROVIDERS: Registered Nurse Emergency; Emergency Provider Internal Medicine; PCP Internal Medicine
DX: R07.89 Other chest pain (principal); R06.02 Shortness of breath; R05.9 Cough, unspecified; Z03.818 Encounter for observation for suspected exposure to other biological agents ruled out; Z79.899 Other long term (current) drug therapy
CPT/HCPCS: 0241U; 71046; 80053; 84484; 84702; 85025; 93005; 96372; 99283; 99284; J1885

== ENCOUNTER → 2023-12-02 15:09 | Outpatient (BNV) | payer MEDICAID, SELFPAY | PROVIDERS: PCP Internal Medicine; Visit Provider Internal Medicine Cardiovascular Disease | DX: R07.9 Chest pain, unspecified (principal) | CPT/HCPCS: 93010 ==

== ENCOUNTER 2023-12-04 21:31 | Emergency (ER) | payer MEDICAID, SELFPAY ==
[2023-12-04 21:33] VITALS: BP 160/120; PULSE 112; O2SAT 99
[2023-12-04 21:50] VITALS: BP 114/65; PULSE 108; RESP 18; TEMP 36.9; O2SAT 98; BMI 35.7
[2023-12-04 21:56] LABS: MANUAL DIFF FLAG NO
[2023-12-04 21:57] LABS: Basophils Percent Auto 0.3 % (0-2); Hematocrit 42.1 % (37.0-47.0); Hemoglobin 13.8 g/dl (12.0-16.0); Imm Gran Abs Auto 0.05 X10*3/uL (0.00-0.03); Imm Gran Pct Auto 0.3 % (0.0-0.4); Lymphocytes Absolute Auto 2.4 X10*3/uL (1.2-4.9); Lymphocytes Percent Auto 14.9 % (20-40); Mean Corpuscular HGB Conc 32.8 g/dl (31.0-35.0); Mean Corpuscular Hemoglobin 27.3 pg (27.0-33.0); Mean Corpuscular Volume 83.2 fL (80.0-98.0); Mean Platelet Volume 9.6 fL (9.4-12.3); Monocytes Absolute Auto 0.7 X10*3/uL (0.1-1.2); Monocytes Percent Auto 4.2 % (2-11); Neutrophils Absolute Auto 12.8 x10*3/uL (2.0-8.3); Neutrophils Percent Auto 80.3 % (45-73); Platelet Count 327 X10*3/uL (160-400); Red Blood Count 5.06 X10*6/uL (4.20-5.50); Red Cell Distribution Width 13.2 % (11.0-16.0); White Blood Count 15.9 X10*3/uL (4.8-10.8)
[2023-12-04 22:00] VITALS: BP 114/65; PULSE 97; RESP 20; TEMP 36.9; O2SAT 98
[2023-12-04 22:26] LABS: Alanine Aminotransferase 187 U/L (0-31); Albumin Level 4.1 g/dL (3.5-5.0); Alkaline Phosphatase 112 U/L (39-117); Anion Gap 13 (12-20); Aspartate Amino Transferase 54 U/L (5-31); Bilirubin Total 0.4 mg/dL (0.0-1.0); Blood Urea Nitrogen 9 mg/dL (9-16); Calcium 9.1 mg/dL (8.4-10.2); Carbon Dioxide 22 mmol/L (22-29); Chloride 109 mmol/L (96-108); Creatinine Clr Calc Pharmacy 138.1; Estimated Glomerular Filt Rate > 60; Glucose Fasting 108 mg/dL (60-99); HCG Quantitative < 2 mIU/mL; Potassium 3.5 mmol/L (3.3-5.1); Sodium 140 mmol/L (135-145); Total Protein 7.3 g/dL (6.5-8.0)
[2023-12-04 22:34] LABS: Influenza A PCR NEGATIVE (Negative); Influenza B PCR NEGATIVE (Negative); Resp Syncy Virus RNA Qual PCR NEGATIVE (Negative); SARS COV2 PCR INHOUSE NEGATIVE (Negative)
--- NOTE | 2023-12-04 22:59 | ED.GENADULT ---
HPI - General Adult General Chief complaint: General Medical Stated complaint: N/V, Bloody stool, severe migraine Time Seen by Provider: 12/04/23 22:13 Source: patient Mode of arrival: ambulatory Limitations: no limitations History of Present Illness ED Provider: gay YOUNGBLOOD narrative: Patient's complaining of headache with photosensitivity does get migraines off and on for last 3 days also had nausea and when she moves her bowel has a bright red blood in the stool no abdominal pain does not take any medication for migraines patient has had previous head CT scan in 04/17 which was negative Related Data Previous Rx's ?Medication ?Instructions ?Recorded ondansetron HCl 4 mg tablet 4 mg PO Q8H 3 days #9 tabs 11/04/20 (Zofran) meclizine 25 mg tablet 25 mg PO TID PRN dizziness #20 tabs 04/16/23 prednisone 20 mg tablet 20 mg PO DAILY 5 days #5 tabs 12/02/23 voardohxqh-csbpfuinoxrgr-[id number] 1 tab PO Q6H PRN haeadace #20 tabs 12/05/23 50 mg-325 mg-40 mg tablet hydrocortisone acetate 25 mg 25 mg [place] BID #12 ea 12/05/23 rectal suppository (Anusol-HC) Allergies Allergy/AdvReac Type Severity Reaction Status Date / Time cucumber [CUCUMBER] Allergy Unknown HIVES Verified 12/04/23 21:50 Review of Systems Review of Systems: Yes all other systems are reviewed and are negative [facility] Social History Social History Smoked in Last 30 Days: No Use of substances other than those prescribed or required for medical reasons: No Advance Directives: No Advance Directives Information Provided: No Patient : No Physical Exam ED Vital Signs: Vital Signs - 24 hr 12/04/23 21:50 12/04/23 22:00 Temperature 98.5 F 98.5 F Pulse Rate 108 H 97 Respiratory Rate 18 20 Blood Pressure 114/65 114/65 Pulse Oximetry 98 98 Oxygen Delivery Method Room Air Room Air BMI result Body Mass Index 35.7 Appearance: Alert. Oriented X3. No acute distress. Eyes: PERRLA, No Nystagmus ENT: Pharynx normal. Oral Mucosa moist Neck: Normal inspection. Neck supple. CVS: Normal heart rate and rhythm. Pulses normal. Respiratory: No respiratory distress. Equal air entry bilateral, no wheezing/rales/rhonchi Abdomen: Soft and nontender. Bowel sounds are present, Skin: Skin warm and dry. Normal skin color. Normal skin turgor. Extremities: No lower extremity edema. No calf tenderness Neuro: Oriented X 3. No motor deficit. No sensory deficit.No cerebellar signs , cranial nerves II-XII intact Medications Administered Discontinued Medications Generic Name Dose Route Start Last Admin Trade Name Freq PRN Reason Stop Dose Admin Acetaminophen/Butalbital/Caffeine 1 tab 12/05/23 02:36 12/05/23 02:43 Butalb/Acetamin/Caff 50/325/40 Tablet PO 12/05/23 02:37 1 tab ONCE ONE Administration Sumatriptan Succinate 6 mg 12/05/23 00:09 12/05/23 01:28 Sumatriptan Succinate 6 Mg/0.5 Ml Vial SUBCUT 12/05/23 00:10 6 mg ONCE ONE Administration Medical Decision Making Medical Decision Making [facility] Narrative: Patient's migraine headache responded to Imitrex and Fioricet feels much better at the time of discharge Lab Data [facility] Lab Attestation statement: I reviewed the patient's lab results. 12/04/23 21:51 12/04/23 21:51 Labs: Lab Results 12/04/23 12/05/23 Range/Units 21:51 01:16 WBC 15.9 H (4.8-10.8) X10*3/uL RBC 5.06 (4.20-5.50) X10*6/uL Hgb 13.8 (12.0-16.0) g/dl Hct 42.1 (37.0-47.0) % MCV 83.2 (80.0-98.0) fL MCH 27.3 (27.0-33.0) pg MCHC 32.8 (31.0-35.0) g/dl RDW 13.2 (11.0-16.0) % Plt Count 327 (160-400) X10*3/uL MPV 9.6 (9.4-12.3) fL Immature Gran % (Auto) 0.3 (0.0-0.4) % Neut % (Auto) 80.3 H (45-73) % Lymph % (Auto) 14.9 L (20-40) % [place] % (Auto) 4.2 (2-11) % Eos % (Auto) 0.0 (0-4) % Baso % (Auto) 0.3 (0-2) % Lymph # (Auto) 2.4 (1.2-4.9) X10*3/uL [place] # (Auto) 0.7 (0.1-1.2) X10*3/uL Eos # (Auto) 0.0 (0.0-0.4) X10*3/uL Baso # (Auto) 0.0 (0.0-0.2) X10*3/uL Abs Immat Gran (auto) 0.05 H (0.00-0.03) X10*3/uL Absolute Neuts (auto) 12.8 H (2.0-8.3) x10*3/uL Absolute Nucleated RBC 0.000 (0.0-0.012) X10*3/uL Nucleated RBC % (auto) 0.0 (0.0-0.2) /100WBC Sodium 140 (135-145) mmol/L Potassium 3.5 (3.3-5.1) mmol/L Chloride 109 H (96-108) mmol/L Carbon Dioxide 22 (22-29) mmol/L Anion Gap 13 (12-20) BUN 9 (9-16) mg/dL Creatinine 0.75 (0.5-1.4) mg/dL Estim Creat Clear Calc 138.1 Estimated GFR > 60 Fasting Glucose 108 H (60-99) mg/dL Calcium 9.1 (8.4-10.2) mg/dL Total Bilirubin 0.4 (0.0-1.0) mg/dL AST 54 H (5-31) U/L ALT 187 H (0-31) U/L Alkaline Phosphatase 112 (39-117) U/L Total Protein 7.3 (6.5-8.0) g/dL Albumin 4.1 (3.5-5.0) g/dL Beta HCG, Quant < 2 mIU/mL Urine Color Yellow Urine Appearance Clear Urine pH 6.0 (5.0-9.0) Ur Specific [place] 1.015 (1.005-1.025) Urine Protein Negative (Neg-Trace) mg/dL Urine Glucose (UA) Negative (Negative) mg/dL Urine Ketones Negative (Negative) mg/dL Urine Blood Large (3+) H (Negative) Urine Nitrite Negative (Negative) Ur Leukocyte Esterase Trace H (Negative) Urine RBC >20 H (0-2) /HPF Urine WBC 6-10 H (0-5) /HPF Ur Squamous Epith Cells 6-10 (0-2) /HPF Urine Bacteria Trace (None Seen) Hyaline Casts 0-2 (0-2) /LPF Influenza Type A (PCR) NEGATIVE (Negative) Influenza Type B (PCR) NEGATIVE (Negative) RSV RNA Qual (PCR) NEGATIVE (Negative) SARS-CoV-2 RNA (RT-PCR) NEGATIVE (Negative) Discharge Plan Discharge Clinical Impression: Migraine, Hemorrhoids Patient Disposition: Home, Self-Care Instructions: Hemorrhoids (DC), Migraine Headache (ED) Additional Instructions: Take Fioricet for migraines as prescribed if the headache continues after sumatriptan Avoid constipation/straining Anusol suppository twice a day for hemorrhoids Prescriptions: New iirtvgikle-vucuesfafvtku-xglj 50-325-40 mg tablet 1 tab PO Q6H PRN (Reason: haeadace) Qty: 20 0RF hydrocortisone acetate [Anusol-HC] 25 mg suppository 25 mg [place] BID Qty: 12 0RF No Action ondansetron HCl [Zofran] 4 mg tablet 4 mg PO Q8H 3 Days Qty: 9 0RF meclizine 25 mg tablet 25 mg PO TID PRN (Reason: dizziness) Qty: 20 0RF prednisone 20 mg tablet 20 mg PO DAILY 5 Days Qty: 5 0RF Interventions: ED Discharge Assessment Last Done: 12/05/23 02:50 Discharge Date/Time: 12/05/23 02:52 Print Language: Korean
[2023-12-05 01:17] VITALS: BP 122/70; PULSE 76; RESP 18; TEMP 37.1; O2SAT 97
[2023-12-05 01:24] LABS: Appearance Urine Clear; Color Urine Yellow; Glucose Urine UA Negative (Negative); Leukocyte Esterase Urine Trace (Negative); Nitrite Urine Negative (Negative); Specific Gravity - Urine 1.015 (1.005-1.025); UMIC TRIGGER UACC YES; Urine Blood Large (3+) (Negative); Urine Ketones Negative (Negative); Urine Protein Negative (Neg-Trace)
[2023-12-05 01:27] LABS: Bacteria Urine Trace (None Seen); Hyaline Casts Urine 0-2 /LPF (0-2); RBC Urine >20 /HPF (0-2); UACC Culture Trigger YES
[2023-12-05] MEDS: SUMAtriptan succinate 6 MG/0.5 ML VIAL SUBCUT (01:28)
[2023-12-05] MEDS: Butalb/Acetamin/Caff 50/325/40 TABLET 1 TAB PO (02:43)
[2023-12-05 02:50] VITALS: BP 122/70; PULSE 76; RESP 18; TEMP 37.1; O2SAT 97
== END 2023-12-05 02:52 | disposition home or self-care (01) ==
PROVIDERS: Emergency Provider Internal Medicine
DX: G43.909 Migraine, unspecified, not intractable, without status migrainosus (principal); K64.9 Unspecified hemorrhoids; Z03.818 Encounter for observation for suspected exposure to other biological agents ruled out
CPT/HCPCS: 0241U; 80053; 81001; 84702; 85025; 87086; 96372; 99284; J3030

== ENCOUNTER 2024-06-27 11:20 | Emergency (ER) | payer OTHER, SELFPAY ==
--- NOTE | 2024-06-27 | ECG_ITS ---
Test Reason : CP Blood Pressure : */* mmHG Vent. Rate : 105 BPM Atrial Rate : 105 BPM P-R Int : 142 ms QRS Dur : 78 ms QT Int : 332 ms P-R-T Axes : 52 67 16 degrees QTcB Int : 438 ms Sinus tachycardia Possible Left atrial enlargement Low voltage QRS Borderline ECG When compared with ECG of 02-Dec-2023 15:15, Nonspecific T wave abnormality, improved in Anterior leads Referred By: Generic ED Physician Electronically Signed By: LEONARD MIRANDA
--- NOTE | ~2024-06-27 | XR_ITS ---
EXAMINATION: XR CHEST CLINICAL INFORMATION: CP COMPARISON: December 02, 2023. TECHNIQUE: Frontal view of the chest was obtained. FINDINGS: No hyperinflation. No consolidation, pleural fissure pneumothorax. Cardiomediastinal silhouette size is normal. S-shaped curvature of the thoracic spine. Patient's large body habitus/obesity. XR/XR chest 1V IMPRESSION: No acute airspace disease. Scoliosis, mid thoracic spine. Electronically signed by: Kingston Clements MD 06/27/2024 12:04 PM EDT
[2024-06-27 11:29] VITALS: BP 122/91; PULSE 107; RESP 20; TEMP 37; O2SAT 98; BMI 37.6
--- NOTE | 2024-06-27 11:42 | ED.CHESTPAIN ---
HPI - Chest Pain General Chief Complaint: Chest Pain Stated Complaint: SOB, numbness L arm, headache Time Seen by Provider: 06/27/24 12:40 Source: patient, RN notes reviewed and old records reviewed Mode of arrival: ambulatory History of Present Illness ED Provider: Iliana Garcia PA-C HPI narrative: 24-year-old female with no significant past medical history presenting to the ED complaining of intermittent chest pain x1 month. Admits saw PCP about 1 month ago for similar symptoms and was told likely related to inflammation. Has been taking NSAIDs without relief. Reports associated LUE paresthesias & exertional dyspnea. Also states when she experiences symptoms chest pain is reproducible to palpation. Denies chest pain at present. Denies fever, chills, nausea, vomiting, pedal edema, recent travel, history of clots, oral OCPs, is currently on Depo, cigarette smoking Related Data Previous Rx's ?Medication ?Instructions ?Recorded ondansetron HCl 4 mg tablet 4 mg PO Q8H 3 days #9 tabs 11/04/20 (Zofran) meclizine 25 mg tablet 25 mg PO TID PRN dizziness #20 tabs 04/16/23 prednisone 20 mg tablet 20 mg PO DAILY 5 days #5 tabs 12/02/23 mkjmsjsbhn-hvjywvyjzqsez-cxnekdlb 1 tab PO Q6H PRN haeadace #20 tabs 12/05/23 50 mg-325 mg-40 mg tablet hydrocortisone acetate 25 mg 25 mg WV BID #12 ea 12/05/23 rectal suppository (Anusol-HC) Allergies Allergy/AdvReac Type Severity Reaction Status Date / Time cucumber [CUCUMBER] Allergy Unknown HIVES Verified 06/27/24 11:29 Review of Systems Review of Systems: Yes all other systems are reviewed and are negative Constitutional: Constitutional: Reports as per [facility] Past Medical History Attestation statement: The following information was validated with the patient. Source: old records reviewed Social History Social History Advance Directives: No Advance Directives Information Provided: Yes Physical Exam Vital Signs: Vital Signs: Last Vital Signs Temp 98.6 F 06/27/24 14:56 Pulse 72 06/27/24 14:56 Resp 20 06/27/24 14:56 BP 116/64 06/27/24 14:56 Pulse Ox 96 06/27/24 14:56 O2 Del Method Room Air 06/27/24 14:56 BMI result Body Mass Index 37.6 Const: General: cooperative, healthy appearing and no acute distress Orientation/consciousness: patient oriented x3 Limitations: no limitations HEENT: Head: Yes normal to inspection and Yes atraumatic Ears: hearing grossly normal bilaterally General nose exam: Normal external nose present Face and sinus: Yes normal facial exam Eyes: General: appearance normal, both eyes and all related structures EOM: EOMs intact bilaterally Neck: Neck: Yes normal visual inspection and Yes no meningeal signs Chest: Chest palpation & inspection: normal inspection of the chest, no crepitus and no tenderness Resp: Effort & Inspection: normal respiratory effort and no respiratory distress Auscultation: clear to auscultation bilaterally, no crackles, no rales, no rhonchi and no wheezes Cardio: Rate: regular rate and tachycardic Heart sounds: S1 normal heart sound present and S2 normal heart sound present GI: Inspection: Yes normal to inspection Palpation (GI): Soft to palpation, nontender, no guarding and not rigid : General: Yes no CVA tenderness Back/Spine/Pelvis: Back: no CVA tenderness Skin: Rashes: no rashes Wounds: no wounds Neuro: General: patient oriented x3, tone normal and no meningeal signs Cranial nerves: Yes CN's II-XII intact bilaterally Gait exam (Neuro): Normal gait present Extrem: General: Yes normal to inspection Course Course Course Narrative: RME: 24-year-old female presents to ED for chest pain that is been going on for loss. Patient had been seen by primary care provider who thinks his chest or inflammation. Patient denies any leg swelling calf pain or coughing up blood. EKG labs chest x-ray ordered. -1439--labs reassuring. Troponin x2 negative, mi unlikely -viral testing negative XR chest 1V IMPRESSION: No acute airspace disease. Scoliosis, mid thoracic spine. Results discussed with patient including worrisome signs and symptoms and strict return precautions, and when to return to the emergency department. They verbalized understanding and feel safe for discharge at this time. Medical Decision Making Medical Decision Making MDM Narrative: 24-year-old female with no significant past medical history presenting to the ED complaining of intermittent chest pain x1 month. On exam mildly tachycardic, NAD, nontoxic appearing, lungs CTA, chest pain not reproducible. Concern for atypical ACS vs costochondritis vs GERD vs ?pneumonia vs anxiety. Lower suspicion for pericarditis, myocarditis, or PE with intermittent symptoms. Unlikely DVT. Plan: EKG, labs, CXR, viral testing Please refer to course for remaining clinical decision making, interpretation of labs/imaging results, and discussions with consultants and/or family members. Differential Diagnosis Differential Diagnoses: The differential diagnosis associated with the presentation includes As above Admission/Observation Consideration of admission/observation: Escalation of care including admission/observation considered Lab Data MDM Lab Attestation statement: I reviewed the patient's lab results. 06/27/24 11:47 06/27/24 11:46 Labs: Lab Results 06/27/24 06/27/24 06/27/24 Range/Units 11:46 11:47 13:56 WBC 9.9 (4.8-10.8) X10*3/uL RBC 5.22 (4.20-5.50) X10*6/uL Hgb 14.4 (12.0-16.0) g/dl Hct 43.6 (37.0-47.0) % MCV 83.5 (80.0-98.0) fL MCH 27.6 (27.0-33.0) pg MCHC 33.0 (31.0-35.0) g/dl RDW 12.7 (11.0-16.0) % Plt Count 298 (160-400) X10*3/uL MPV 9.7 (9.4-12.3) fL Immature Gran % (Auto) 0.4 (0.0-0.4) % Neut % (Auto) 59.8 (45-73) % Lymph % (Auto) 33.2 (20-40) % [place] % (Auto) 5.2 (2-11) % Eos % (Auto) 1.0 (0-4) % Baso % (Auto) 0.4 (0-2) % Lymph # (Auto) 3.3 (1.2-4.9) X10*3/uL [place] # (Auto) 0.5 (0.1-1.2) X10*3/uL Eos # (Auto) 0.1 (0.0-0.4) X10*3/uL Baso # (Auto) 0.0 (0.0-0.2) X10*3/uL Abs Immat Gran (auto) 0.04 H (0.00-0.03) X10*3/uL Absolute Neuts (auto) 5.9 (2.0-8.3) x10*3/uL Absolute Nucleated RBC 0.000 (0.0-0.012) X10*3/uL Nucleated RBC % (auto) 0.0 (0.0-0.2) /100WBC ESR 18 (0-20) MM/HR Sodium 139 (135-145) mmol/L Potassium 3.8 (3.3-5.1) mmol/L Chloride 109 H (96-108) mmol/L Carbon Dioxide 22 (22-29) mmol/L Anion Gap 12 (12-20) BUN 9 (9-16) mg/dL Creatinine 0.69 (0.5-1.4) mg/dL Estim Creat Clear Calc 148.0 Estimated GFR > 60 Random Glucose 101 (60-115) mg/dL Calcium 8.8 (8.4-10.2) mg/dL Magnesium 2.0 (1.6-2.6) mg/dL Total Bilirubin 0.4 (0.0-1.0) mg/dL AST 23 (5-31) U/L ALT 19 (0-31) U/L Alkaline Phosphatase 101 (39-117) U/L Troponin I High Sens < 2.7 < 2.7 (<3.5-17.0) ng/L C-Reactive Protein 0.57 H (< or = 0.50) mg/dL B-Natriuretic Peptide 14 (<100) pg/mL Total Protein 7.1 (6.5-8.0) g/dL Albumin 4.0 (3.5-5.0) g/dL Influenza Type A (PCR) NEGATIVE (Negative) Influenza Type B (PCR) NEGATIVE (Negative) RSV RNA Qual (PCR) NEGATIVE (Negative) SARS-CoV-2 RNA (RT-PCR) NEGATIVE (Negative) Independent Interpretation I performed an independent interpretation of an: EKG (My interpretation EKG sinus tachycardia rate of 105. Low voltage QRS. WV interval 142. Nonspecific T-wave abnormality when compared to prior. No STEMI ) and Plain X-Ray Radiology Impression Discussion of test interpretation with radiology: I have reviewed the radiologist's reading. External Record Review External record reviewed: Inpatient record, Office record, Outpatient record, Prior outpatient labs, Prior outpatient radiology, Primary care record and Outside ED record Tests considered The following testing was considered but not selected: As above Prescription Management I considered prescription management with: Pain Medication and Other Chronic Conditions Patient?s care impacted by: Other Social Determinants Patient?s care significantly limited by Social Determinants of Health including: Other Social Determinant of Health Discharge Plan Discharge Clinical Impression: Atypical chest pain Patient Disposition: Home, Self-Care Instructions: Noncardiac Chest Pain (ED) Additional Instructions: Your blood work and chest x-ray are reassuring You tested negative for COVID, flu, RSV You need to have close follow up with your primary care doctor as well as Cardiology, call to make an appointment If her symptoms persist or worsen, pain becomes more constant, unbearable, different, you have constant or worsening shortness of breath return to the emergency department Prescriptions: No Action ondansetron HCl [Zofran] 4 mg tablet 4 mg PO Q8H 3 Days Qty: 9 0RF meclizine 25 mg tablet 25 mg PO TID PRN (Reason: dizziness) Qty: 20 0RF yyxhnzzsnz-uryoqihpzcuck-tqwx 50-325-40 mg tablet 1 tab PO Q6H PRN (Reason: haeadace) Qty: 20 0RF hydrocortisone acetate [Anusol-HC] 25 mg suppository 25 mg WV BID Qty: 12 0RF prednisone 20 mg tablet 20 mg PO DAILY 5 Days Qty: 5 0RF Referrals: [facility] [Provider Group] - 1 week Lorrie Villegas MD [Primary Care Provider] - 3 days Stand Alone Forms: Work/School Release Interventions: ED Discharge Assessment Last Done: 06/27/24 14:56 Discharge Date/Time: 06/27/24 14:58 Print Language: Tajik
[2024-06-27 11:53] LABS: MANUAL DIFF FLAG NO
[2024-06-27 11:55] LABS: Basophils Percent Auto 0.4 % (0-2); Eosinophils Absolute Auto 0.1 X10*3/uL (0.0-0.4); Hematocrit 43.6 % (37.0-47.0); Hemoglobin 14.4 g/dl (12.0-16.0); Imm Gran Abs Auto 0.04 X10*3/uL (0.00-0.03); Imm Gran Pct Auto 0.4 % (0.0-0.4); Lymphocytes Absolute Auto 3.3 X10*3/uL (1.2-4.9); Lymphocytes Percent Auto 33.2 % (20-40); Mean Corpuscular Hemoglobin 27.6 pg (27.0-33.0); Mean Corpuscular Volume 83.5 fL (80.0-98.0); Mean Platelet Volume 9.7 fL (9.4-12.3); Monocytes Absolute Auto 0.5 X10*3/uL (0.1-1.2); Monocytes Percent Auto 5.2 % (2-11); Neutrophils Absolute Auto 5.9 x10*3/uL (2.0-8.3); Neutrophils Percent Auto 59.8 % (45-73); Platelet Count 298 X10*3/uL (160-400); Red Blood Count 5.22 X10*6/uL (4.20-5.50); Red Cell Distribution Width 12.7 % (11.0-16.0); White Blood Count 9.9 X10*3/uL (4.8-10.8)
[2024-06-27 12:10] LABS: Alanine Aminotransferase 19 U/L (0-31); Anion Gap 12 (12-20); Aspartate Amino Transferase 23 U/L (5-31); Bilirubin Total 0.4 mg/dL (0.0-1.0); Blood Urea Nitrogen 9 mg/dL (9-16); Calcium 8.8 mg/dL (8.4-10.2); Carbon Dioxide 22 mmol/L (22-29); Chloride 109 mmol/L (96-108); Estimated Glomerular Filt Rate > 60; Glucose Random 101 mg/dL (60-115); Potassium 3.8 mmol/L (3.3-5.1); Sodium 139 mmol/L (135-145); Total Protein 7.1 g/dL (6.5-8.0)
[2024-06-27 12:22] LABS: Troponin-I High Sensitivity < 2.7 ng/L (<3.5-17.0)
[2024-06-27 12:31] LABS: Influenza A PCR NEGATIVE (Negative); Influenza B PCR NEGATIVE (Negative); Resp Syncy Virus RNA Qual PCR NEGATIVE (Negative); SARS COV2 PCR INHOUSE NEGATIVE (Negative)
[2024-06-27 12:33] LABS: B Type Natriuretic Peptide 14 pg/mL (<100)
[2024-06-27 14:06] LABS: C Reactive Protein 0.57 mg/dL (< or = 0.50)
--- OUTSIDE RECORDS SUMMARY | 2024-06-27 14:22 | XMS_ITS | Encounter Summary ---
Author Organization [facility] Address [address] [place] [phone] Phone Care Team Providers Care Cassandra Developer Name Role Phone Jennifer Weir NP Primary Care Provider Unavailabl e Encounter Details Date Type Department Care Team (Late st Contact Info) Description 10/08/2016 Conversion Encounter [facility] - [address] [address] Social History Tobacco Use Types Packs/Day Years Used Date Smoking Tobacco: Never Comments:Never smoker Comments Unknown Sex and Gender Information Value Date Recorded Sex Assigned at Not on file Legal Sex Female 5:23 PM EDT Gender Identity Not on file Sexual Orientation Not on file documented as of this encounter Plan of Treatment Not on file documented as of this encounter Visit Diagnoses Not on filedocumented in this encounter Care Teams Cassandra Developer Relationship Specialty Start Date End Date Jennifer Weir NP PCP - General Pediatrics 11/15/20 documented as of this encounter
--- OUTSIDE RECORDS SUMMARY | 2024-06-27 14:22 | XMS_ITS | Clinical Summary ---
Author Organization [facility] Address [address] [place] [address] Care Team Providers Care Manager Investigations Name Role Phone Lorrie Villegas MD Primary Care Provider [phone] Medications Medication Sig Dispensed Refills Start Date End Date Status amitriptyline (ELAVIL) 10 MG tablet 1 po hs x 1 week, then increase to 2 po hs 60 tablet 5 12/16/2023 Active Social History Tobacco Use Types Packs/Day Years Used Date Smoking Tobacco: Never Assessed Sex and Gender Information Value Date Recorded Sex Assigned at Female 05/06/2023 3:03 PM EDT Gender Identity Not on file Sexual Orientation Not on file Job Start Date Occupation Industry Not on file Not on file Not on file Last Filed Vital Signs Vital Sign Reading Time Taken Comments Blood Pressure 120/79 11/04/2023 2:34 PM EDT Pulse 89 11/04/2023 2:34 PM EDT Temperature 36.1 ??C (96.9 ??F) 11/04/2023 2:34 PM ED T Respiratory Rate - - Oxygen Saturation 96% 11/04/2023 2:34 PM EDT Inhaled Oxygen Concentration - - Weight 102.1 kg (225 lb) 11/04/2023 2:34 PM EDT Height 165.1 cm (5' 5 ) 11/04/2023 2:34 PM EDT Body Mass Index 37.44 11/04/2023 2:34 PM EDT Plan of Treatment Health Maintenance Due Date Last Done Comments Hepatitis C Screening 1999 COVID-19 Vaccine (#1) 1999 Depression Screening 2011 Gonorrhea and Chlamydia Screening 02/07/2012 BMI Counseling 2017 Preventative Health Evaluation 2017 Cervical Cancer Screening (Pap Smear) 02/07/2020 DTap / Tdap / Td (7 - Td or Tdap) 10/24/2020 10/24/2010, 05/16/2003, 09/15/2000, Additional history exists Influenza Vaccine (#1) 2023 9, 11/05/2016, 11/28/2015, Additional history exists Hepatitis B Vaccines Completed 01/26/2000, 1999, 1999 Pneumococcal Vaccine Aged Out 05/27/2000, 01/26/20 00 No longer eligible based on patient's age to complete this topic RSV Ped < 20 months Aged Out No longe r eligible based on patient's age to complete this topic Care Teams Manager Investigations Relationship Specialty Start Date End Date Lorrie Villegas MD PCP - General Internal Medicine 05/06/23
--- OUTSIDE RECORDS SUMMARY | 2024-06-27 14:22 | XMS_ITS | Clinical Summary ---
Author Organization [facility] Address [address] [place] [id number] Phone Care Team Providers Care Auto Winder Name Role Phone Jennifer Weir NP Primary Care Provider Unavailabl e Allergies Active Allergy Reactions Criticality Noted Date Comments [place] Extract Hives 10/07/2018 Medications Etonogestrel (NEXPLANON SC) Inject under the skin. Active Active Problems Problem Noted Date Diagnosed Date History of elective 09/02/2020 Overview (09/05/2020): [facility]; says she does not use protection as she is w/ her boyfriend of 5 years; advised need e learning designer: pt defer STI serology labs for e learning designer Assessment & Plan (09/05/2020 7:01 AM EDT): [facility]on; says she does not use protection as she is w/ her boyfriend of 5 years; advised need e learning designer: pt defer STI serology labs for e learning designer Mood swings 09/02/2020 Assessment & Plan (09/05/2020 6:28 AM EDT): In and out of therapy; depression pt says maybe I was told maybe I have Bipolar too warm hand off Rimma Kwok PHQ-9 score 16 Gastroesophageal reflux disease without esophagi tis 02/24/2019 Overview (02/24/2019): Seen by [facility] adult GI Pantoprazole (Protonix) Assessment & Plan (09/02/2020 4:19 PM EDT): No follow since covid 19; off PPI needs to see Adult GI and likely would need an endoscopy 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 and no better when she was on it brazing machine operator helper for continuity of care Immunizations Immunization Administration Dates Next Due DTaP 5 05/16/2003, 1,1999,06/24,1999 H1N1 01/02/2009 HPV Vaccine 9 Valent 04/30/2015,10/26/2014 HPV, Quadrivalent 10/24/2013 Hep A, ped/adol 10/26/2014,10/24/2013 Hep B, ped/adol 01/26/2000,1999,1999 Hib (PRP-T) 05/27/2000, 0,1999,04/10 IPV 05/16/2003, 0,1999,04/10 Influenza Split 10/28/2011 Influenza, injectable, quadrivalent 11/28/2015 Influenza, injectable, quadr ivalent, preservative free 12/26/2018,11/05/2016,10/26/2014,10/24 Influenza, injectable, trivalent 12/30/2007 Influenza, intranasal, trivalent 10/24/2010 MMR 05/16/2003,02/10/2000 Meningococcal Conj (Menactra) MCV4P 04/30/2015,0 10/24/2010 Pneumococcal Conjugate 05/27/2000,01/26/2000 Tdap 10/24/2010 Varicella 12/30/2007,02/10/2000 Family History Relation Name Status Comments Brother Alive Brother: Alive and well Father Alive Father: Alive a nd well Mother Alive Mother: Alive a nd well Sister Alive Sister: Alive a nd well Social History Tobacco Use Types Packs/Day Years Used Date Smoking Tobacco: Never Smokeless Tobacco: Never Comments:Never smoker Hunger/Food Answer Date Recorded In the last 12 months, did y ou or your family ever eat less than you felt you should because there wasn't enough money for food? No 09/02/2020 Stable Housing Answer Date Recorded Are you worried that in the next 2 months you may not have stable housing? No 09/02/2020 Transportation Concerns Answer Date Rec orded In the last 12 months, have you or your family ever had to go without healthcare because you didn't have a way to get there? No 09/02/2020 Hazards in Home Answer Date Recorded Think about the place you li ve. Do you have problems with any of the following? Pests (mice or roaches), mold, no/not working smoke detectors, water leaks, no window guards. No 2020 Financing Utilities Answer Date Recorde d In the last 12 months, has t he electric, gas, oil, or water company threatened to shut off your services in your home? No 09/02/2020 Safety at Home Answer Date Recorded Are you or your family worried about feeling saf e in your home? No 09/02/2020 Outside Support Answer Date Recorded Do you feel that you need mo re support from other people or programs to help you care for yourself or your family? No 09/02/2020 Understanding Health Concerns Answer Da te Recorded Do you need help understandi ng your or your child's healthcare needs (diagnosis, medications, plan, etc.)? No 09/02/2020 Financing Health Concerns Answer Date R ecorded In the last 12 months, was t here a time when your child needed to see a doctor or get medications or supplies but could not because of cost? No 09/02/2020 Missing School or Work Answer Date Se rded Did you or your child miss s chool or work because of a health problem that could have been avoided? No 09/02/2020 Comments No Sex and Gender Information Value Date Recorded Sex Assigned at Not on file Legal Sex Female 5:23 PM EDT Gender Identity Not on file Sexual Orientation Not on file Last Filed Vital Signs Vital Sign Reading Time Taken Comments Blood Pressure 120/76 09/02/2020 3:11 PM EDT Pulse 80 09/02/2020 3:11 PM EDT Temperature 36.9 ??C (98.5 ??F) 09/02/2020 3:11 PM ED T Respiratory Rate - - Oxygen Saturation 98% 12/26/2018 2:48 PM EST Inhaled Oxygen Concentration - - Weight 94 kg (207 lb 3.2 oz) 09/02/2020 3:11 PM EDT Height 167.6 cm (5' 6 ) 09/02/2020 3:11 PM EDT Body Mass Index 33.44 09/02/2020 3:11 PM EDT Plan of Treatment Health Maintenance Due Date Last Done Comments DTaP,Tdap,and Td Vaccines (7 - Td or Tdap) 10/24/2020 10/24/2010, 05/16/2003, 09/15/2000, Additional history exists Influenza Vaccines (#1) 2023 12/27/19 19, 11/05/2016, 11/28/2015, Additional history exists COVID-19 Vaccine (2023- season) 2023 Hepatitis B Vaccines Completed 01/26/2000, 1999, 1999 HIB Vaccines Completed 05/27/2000, 07/24, 1999, Additional history exists Pneumococcal Vaccine Aged Out 05/27/2000, 01/26/20 00 No longer eligible based on patient's age to complete this topic IPV Vaccines Completed 05/16/2003, 07/24, 1999, Additional history exists MMR Vaccines Completed 05/16/2003, 02/10/2000 Varicella Vaccines Completed 12/30/2007, 02/10/2000 Hepatitis A Vaccines Completed 10/26/2014, 10/25/19 14 HPV Vaccines Completed 04/30/2015, 05/2014, 10/24/2013 Meningococcal Vaccine Completed 04/30/2015, 011 Men B Vaccine Aged Out No longer elig ible based on patient's age to complete this topic Procedures * Due to [place] law, this organization might not be sharing sensitive test results. Procedure Name Priority Date/Time Associated Diagnosis Comments CHLAMYDIA AND GONORRHEA, AMPLIFIED Routine 09/02/2020 3:16 PM EDT Screening examination for bacterial and spirochetal disease from Last 3 Months or Most Recently Relevant to Health Maintenance Results * Due to [place] law, this organization might not be sharing sensitive test results. * Chlamydia and Gonorrhoea, Amplified (09/02/2020 3:16 PM EDT) Chlamydia Trachomatis, DNA Probe NEGATIVE (NEG) [facility] Comment: No Chlamydia Trachomatis RNA detected in this patient's sample ? (REFERENCE RANGE/NORMAL VALUE: NOT DETECTED) ? Note: This test uses legal services manager- mediated amplification method to detect rRNA from C. Trachomatis URINE GC AMP PROBE NEGATIVE (NEG) [facility] Comment: No Neisseria Gonorrhoeae RNA detected in this patient's sample ? (REFERENCE RANGE/NORMAL VALUE: NOT DETECTED) ? NOTE: This test uses legal services manager-mediated amplification method to detect rRNA from N.Gonorrhoeae. A negative result does not preclude infection. In the case of a negative urine result, testing of an endocervical(female) or urethral (male) specimen is recommended if there is high clinical suspicion of infection. Due to very high sensitivity of Nucleic Acid Amplification Test, false positive results may occur. Therefore, specimen handling is extremely important. In patients in whom the disease is unlikely, additional sample for testing should be considered after an initial positive result. The performance characteristics of this test have not been evaluated in children. The Aptima Combo2 assay is not intended for the evaluation of suspected sexual abuse or for other medico-legal indications. The ordering provider should assess if the patient had consensual sex without risk of sexual abuse. Consult the [facility] if needed. Contact phone number . Therapeutic failure or success cannot be determined with the Aptima Combo2 assay since nucleic acid may persist following appropriate antimicrobial therapy. The Centers for Disease Control and Prevention (CDC) recommends confirmatory retesting using culture or a different nucleic acid amplification test when positive results occur, if indicated. Testing performed or reported by [facility], a Service of [facility], [facility] [place] [address] Wilmer Nino MD, Hr Operations Advisor Urine 09/02/2020 3:16 PM EDT 09/02/2020 10:16 PM EDT us Jennifer Weir NP LAB MICROBIOLOGY - GENERAL ORDER LEBRON Final Result [facility] from Last 3 Months or Most Recently Relevant to Health Maintenance Insurance [facility] Care Teams Auto Winder Relationship Specialty Start Date End Date Jennifer Weir NP PCP - General Pediatrics 11/15/20
--- OUTSIDE RECORDS SUMMARY | 2024-06-27 14:22 | XMS_ITS | Encounter Summary ---
Author Organization [facility] Address [address] [place] [address] Care Team Providers Care Mill Manager Name Role Phone Lorrie Villegas MD Primary Care Provider [phone] Encounter Details Date Type Department Care Team (Late st Contact Info) Description 12/16/2023 2:00 PM EDT Hospital Encounter TH HISTORIC ENCOUNTERS EASTERN CONVERSION ONLY Carla San PA [address] [facility] [address] [place] [address] Social History Tobacco Use Types Packs/Day Years [...] returns for follow-up visit. She presented to [facility] on 12/03 reporting symptoms of zapping [...] 30 minutes. The majority of the actual snso-ab-exvm visit was spent counseling the patient with respect to the current neurological picture. Carla San PA-C documented in this encounter Plan of Treatment Upcoming Encounters Date Type Department Care Team (Late st Contact Info) Description 07/10/2024 3:00 PM EDT Office Visit [facility] [place] [address] [facility] [address] [place] [phone] Carla San PA [address] [facility] [address] [place] [address] 07/13/2024 8:00 AM EDT Office Visit Bariatric Surgery - [place] [address] [place] [phone] Heather Moser PA [address] [facility] [address] [place] [address] documented as of this encounter Visit Diagnoses Not on filedocumented in this encounter Care Teams Mill Manager Relationship Specialty Start Date End Date Lorrie Villegas MD [address] [place] [id number] PCP - General 05/06/23 documented as of this encounter
--- OUTSIDE RECORDS SUMMARY | 2024-06-27 14:22 | XMS_ITS | Encounter Summary ---
Author Organization [facility] Address [address] [place] [phone] Phone Care Team Providers Care Sand Technician Name Role Phone Jennifer Weir NP Primary Care Provider Unavailabl e Encounter Details Date Type Department Care Team (Late st Contact Info) Description 12/28/2013 Documentation [facility] [place] Family Medicine [address] [place] [address] Family Medicine, Physician [address] [place] [place] [address] Social History Tobacco Use Types Packs/Day Years Used Date Smoking Tobacco: Never Assessed Comments Unknown Sex and Gender Information Value Date Recorded Sex Assigned at Not on file Legal Sex Female 5:23 PM EDT Gender Identity Not on file Sexual Orientation Not on file documented as of this encounter Plan of Treatment Not on file documented as of this encounter Visit Diagnoses Not on filedocumented in this encounter Care Teams Sand Technician Relationship Specialty Start Date End Date Jennifer Weir NP PCP - General Pediatrics 11/15/20 documented as of this encounter
--- OUTSIDE RECORDS SUMMARY | 2024-06-27 14:22 | XMS_ITS | Clinical Summary ---
Author Organization [address] [facility] Address [address] [place] [address] Phone Care Team Providers Care Wrestling Coach Name Role Phone Lorrie Villegas MD Primary Care Provider [phone] Allergies Active Allergy Reactions Criticality Noted Date Comments [place] 05/04/2023 Medications ibuprofen (ADVIL,MOTRIN) 800 mg tablet Take 1 tablet (800 mg total) by mouth every 6 (six) hours if needed for mild pain. Active bismuth subsalicylate (PEPTO BISMOL) 262 mg chewable tablet Chew 2 tablets (524 mg total) 4 (four) times a day (before meals and nightly). Active propranolol LA (Inderal LA) 60 mg 24 hr capsule Take 1 capsule (60 mg total) by mouth 1 (one) time each day. Do not crush, chew, or split. 30 capsule 5 5 04/13/19 26 Active rizatriptan (MAXALT) 10 mg tablet Take 1 tablet (10 mg total) by mouth 1 (one) time if needed for migraine (may repeat x1). May repeat in 2 hours if unresolved. Do not exceed 30 mg in 24 hours. 9 tablet 5 5 04/13/19 26 Active tirzepatide, weight loss, (Zepbound) 2.5 mg/0.5 mL injectionIndicatio ns:Severe obesity (BMI 35.0-35.9 with comorbidity) (CMS/HCC V24, CMS/HCC V28) Inject 0.5 mL (2.5 mg total) under the skin every 7 (seven) days. 2 mL 5 Active phentermine 15 mg capsule Take 1 capsule (15 mg total) by mouth 1 (one) time each day before breakfast. Max Daily Amount: 15 mg 30 each 5 Active Active Problems Problem Noted Date Diagnosed Date Severe obesity (BMI 35.0-35. 9 with comorbidity) ([facility] V24, [facility] V28) 01/07/2024 Kidney stones 05/17/2023 GERD (gastroesophageal reflux disease) Migraine 05/04/2023 Depression 09/30/2022 Encounters Date Type Department Care Team Description 05/30/2024 1:15 PM EDT Office Visit Adult Medicine [address] [phone] Lorrie Villegas MD Chest pain, unspecified type (Primary Dx) 05/03/2024 2:30 PM EDT Treatment [address] [phone] Elizabeth Franz, PT Neck pain on left side (Primary Dx); Chronic migraine with aura without status migrainosus, not intractable 04/28/2024 Telephone Bariatric Surgery [address] [phone] Heather Moser PA 04/18/2024 2:30 PM EST Consult [address] [phone] Heather Moser PA Severe obesity (BMI 35.0-35.9 with comorbidity) ([facility] V24, [facility] V28) (Primary Dx) 04/17/2024 1:45 PM EST Treatment [address] [phone] Ilir Hernandez, ACCOUNTING SPECIALIST Neck pain on left side (Primary Dx) 04/13/2024 1:30 PM EST Office Visit [facility] [address] [place] [phone] Carla San PA Chronic migraine with aura without status migrainosus, not intractable (Primary Dx); Sinusitis, unspecified chronicity, unspecified location 04/03/2024 11:00 AM [facility] Treatment [address] [phone] Elizabeth Franz, PT Neck pain on left side (Primary Dx); Chronic migraine with aura without status migrainosus, not intractable from Last 3 Months Immunizations Name Administration Dates Next Due DTaP 5 pertussis antigens, D iptheria Tetanus acellular pertussis (Daptacel) 6wks to less than 7yo 05/16/2003,09/15/2000,1999,06/24,1999 H1N1 All Forms 01/02/2009 HPV 9-valent (Gardisil) 9yo to less than 46yo 04/30/2015,10/26/2014 HPV, Quadrivalent 10/24/2013 Hepatitis A Pediatric (Havri x; Vaqta) 12mo to less than 19yo 10/26/2014,10/24/2013 Hepatitis B Pediatric (Enger ix B; Recombivax HB) to less than 20 yo 01/26/2000,1999,1999 HiB PRP-T conjugate (Acthib, Hiberix) 6wks and older 05/27/2000,1999,1999,04/10 IPV Inactivated polio (Ipol) 6wks and older 05/16/2003,1999,1999,04/10 Influenza Quadrivalent, 0.5m l, preservative free (Fluarix; FluLaval; Fluzone) ages 6mo and older (Afluria) 3yo and older 12/26/2018,11/05/2016,10/26/2014,10/24 Influenza Quadrivalent, with preservative (Fluzone; Afluria) 6mo and older 11/28/2015 Influenza Split 10/28/2011 Influenza trivalent, with pr eservative (Fluzone; Afluria) 6mo and older 12/30/2007 Influenza, live, intranasal, trivalent (FluMist) 2yo to less than 50yo 10/24/2010 MMR, measles mumps and rubel la Live (Priorix; M-M-R II) 12mo and older 05/16/2003,02/10/2000 Meningococcal MCV4P 04/30/2015,10/24/2010 Pneumococcal Conjugate Vacci ne, 7 Valent 05/27/2000,01/26/2000 Tdap Tetanus diptheria acell ular pertussis (Boostrix; Adacel) 7yo and older 10/24/2010 Varicella live (Varivax) 12m o and older 12/30/2007,02/10/2000 Surgical History Surgery Date Site/Laterality Comments OTHER SURGICAL HISTORY PROCEDURE: DENIES PREVIOUS SURGERY Medical History Medical History Date Comments Depression Family History Medical History Relation Name Comments Depression Brother Asthma Mother Asthma Sister Mental illness Sister Relation Name Status Comments Brother Mother Sister Social History Tobacco Use Types Packs/Day Years Used Date Smoking Tobacco: Never Smokeless Tobacco: Never Tobacco Cessation:Counseling Given: Not Answered Alcohol Use Standard Drinks/Week Comments Yes 0 (1 standard drink = 0.6 oz pur e alcohol) Comments Unknown Sex and Gender Information Value Date Recorded Sex Assigned at Not on file Legal Sex Female 6:18 PM EST Gender Identity Not on file Sexual Orientation Not on file Obstetrics History Last Filed Vital Signs Vital Sign Reading Time Taken Comments Blood Pressure 110/58 05/30/2024 1:14 PM EDT Pulse 104 05/30/2024 1:14 PM EDT Temperature 36.1 ??C (96.9 ??F) 05/30/2024 1:14 PM ED T Respiratory Rate 16 05/30/2024 1:14 PM EDT Oxygen Saturation 96% 05/30/2024 1:14 PM EDT Inhaled Oxygen Concentration - - Weight 103 kg (226 lb 3.2 oz) 05/30/2024 1:14 PM EDT Height 166.4 cm (5' 5.5 ) 05/30/2024 1:14 PM EDT Body Mass Index 37.07 05/30/2024 1:14 PM EDT Plan of Treatment Upcoming Encounters Date Type Department Care Team (Late st Contact Info) Description 07/10/2024 3:00 PM EDT Office Visit [address] [place] [address] Carla San PA [address] [place] [address] 07/13/2024 8:00 AM EDT Office Visit Bariatric Surgery - [place] [address] [place] [phone] Heather Moser PA [address] [place] [address] Health Maintenance Due Date Last Done Comments Cervical Cancer Screening: Pap Smear 02/07/2020 DTaP,Tdap,and Td Vaccines (7 - Td or Tdap) 10/24/2020 10/24/2010, 05/16/2003, 09/15/2000, Additional history exists Depression Screening 03/24/2023 HIV Screening 03/24/2023 Hepatitis C Screening 03/24/2023 Social Influencers of Health Screening 03/24/2023 COVID-19 Vaccine ( season) 2023 Influenza Vaccine (Season Ended) 2024 12/26/2018, 11/05/2016, 11/28/2015, Additional history exists Cholesterol Screening (Lipid Panel) 11/02/2028 11/03/2023, 11/03/2023 Hepatitis B Vaccines Completed 01/26/2000, 1999, 1999 HIB Vaccines Completed 05/27/2000, 07/24, 1999, Additional history exists Pneumococcal Vaccine: Pediatrics (0 to 5 Years) and At-Risk Patients (6 to 64 Years) Aged Out 05/27/2000, 01/26/2000 No longer eligibl e based on patient's age to complete this topic IPV Vaccines Completed 05/16/2003, 07/24, 1999, Additional history exists MMR Vaccines Completed 05/16/2003, 02/10/2000 Varicella Vaccines Completed 12/30/2007, 02/10/2000 Hepatitis A Vaccines Completed 10/26/2014, 10/25/19 14 HPV Vaccines Completed 04/30/2015, 05/2014, 10/24/2013 Meningococcal ACWY Vaccine Completed 04/30/2015, Meningococcal B Vaccine Aged Out No l onger eligible based on patient's age to complete this topic RSV Immunization Patients Under 20 months Aged Out No longer eligible based on patient's age to complete this topic Procedures Procedure Name Priority Date/Time Associated Diagnosis Comments D-DIMER Routine 05/30/2024 2:01 PM EDT Chest pain, unspecified type LIPID PANEL Routine 11/03/2023 from Last 3 Months or Most Recently Relevant to Health Maintenance Results * D-Dimer (05/30/2024 2:01 PM EDT) D-Dimer, Quant (D-DU) <150 <=230 ng/mL DDU LAB COAGULATION METHOD 05/30/2024 4:59 PM EDT [facility] Blood Venous blood specimen / Unknown Venipuncture / Unknown 05/30/2024 2:01 PM EDT 05/30/2024 2:02 PM EDT Narrative [facility] - 05/30/2024 4:59 PM EDT D-Dimer <230 ng/mL (D-Dimer units) is the threshold for exclusion of DVT/PE. D-Dimer may be elevated in: Critically ill, severely infected, trauma patients, DIC, acute CVA, acute CO, unstable angina, AF, old age, , and smoking. D-Dimer may be decreased with: Initiation of heparin therapy and oral anticoagulants. us Lorrie Villegas MD LAB BLOOD ORDERABLES Final Resul t [facility] [address] [place] [address], * (ABNORMAL) Lipid panel (11/03/2023) LDL/HDL Ratio 4 0 - 4 Triglycerides 90 0 - 150 mg/dL Cholesterol 176 0 - 200 mg/dL HDL 40 >=40 mg/dL LDL Cholesterol 118(A) 0 - 100 mg/dL Blood Venous blood specimen / Unknown us Historical Provider LAB BLOOD ORDERABLES Sandy l Result from Last 3 Months or Most Recently Relevant to Health Maintenance Insurance [facility] Care Teams Wrestling Coach Relationship Specialty Start Date End Date Lorrie Villegas MD [address] [place] [address] PCP - General 05/06/23
[2024-06-27 14:36] LABS: Troponin-I High Sensitivity < 2.7 ng/L (<3.5-17.0)
[2024-06-27 14:50] LABS: Erythrocyte Sedimentation Rate 18 MM/HR (0-20)
[2024-06-27 14:56] VITALS: BP 116/64; PULSE 72; RESP 20; TEMP 37; O2SAT 96
[2024-06-27 17:00] LABS: Alkaline Phosphatase 101 U/L (39-117)
== END 2024-06-27 14:58 | disposition home or self-care (01) ==
PROVIDERS: Physician Assistant; Emergency Provider Emergency Medicine Emergency Medical Services; PCP Internal Medicine
DX: R07.89 Other chest pain (principal); R06.00 Dyspnea, unspecified; R00.0 Tachycardia, unspecified; Z03.818 Encounter for observation for suspected exposure to other biological agents ruled out
CPT/HCPCS: 0241U; 36415; 71045; 80053; 83735; 83880; 84484; 85025; 85652; 86140; 93005; 99283

== ENCOUNTER → 2024-06-27 11:36 | Outpatient (BNV) | payer OTHER, SELFPAY | PROVIDERS: Emergency Provider Emergency Medicine Emergency Medical Services; PCP Internal Medicine; Visit Provider Internal Medicine | DX: R00.0 Tachycardia, unspecified (principal) | CPT/HCPCS: 93010 ==

== ENCOUNTER → 2024-06-27 11:50 | Outpatient (BNV) | payer MEDICAID, SELFPAY | PROVIDERS: Visit Provider Radiology Diagnostic Radiology | DX: R07.9 Chest pain, unspecified (principal) | CPT/HCPCS: 71045 ==

== ENCOUNTER 2024-07-06 11:07 | Emergency (ER) | payer OTHER, SELFPAY ==
[2024-07-06 11:16] VITALS: BP 113/70; PULSE 108; RESP 18; TEMP 36.3; O2SAT 98; BMI 36.7
--- NOTE | 2024-07-06 11:16 | ED.GENADULT ---
HPI - General Adult General Chief complaint: Headache Stated complaint: nausea Time Seen by Provider: 07/06/24 12:55 Source: patient Mode of arrival: ambulatory Limitations: no limitations History of Present Illness ED Provider: Dr. Santana Infante HPI narrative: 24-year-old female with a history of GERD, migraine headaches, sinus infections who presents emergency department for evaluation of headache associated with nausea. The patient states she has a chronic daily migraine headaches. She states that today's headache is different than her usual migraine syndrome. She states she has pain over her entire head which is intermittent. The pain is associated with nausea, feeling hot and cold, sore throat, bilateral ear pain, rhinorrhea, occasional cough with bloody mucus. She denied vomiting, photophobia, phonophobia, numbness or tingling. The patient was seen at an urgent care clinic yesterday and diagnosed with seasonal allergies and started on Flonase and Zyrtec. She states that these medications have not helped. Related Data Previous Rx's ?Medication ?Instructions ?Recorded ondansetron HCl 4 mg tablet 4 mg PO Q8H 3 days #9 tabs 11/04/20 (Zofran) meclizine 25 mg tablet 25 mg PO TID PRN dizziness #20 tabs 04/16/23 prednisone 20 mg tablet 20 mg PO DAILY 5 days #5 tabs 12/02/23 vvyzngepss-txreivyelldur-fhewjnpx 1 tab PO Q6H PRN haeadace #20 tabs 12/05/23 50 mg-325 mg-40 mg tablet hydrocortisone acetate 25 mg 25 mg NJ BID #12 ea 12/05/23 rectal suppository (Anusol-HC) prednisone 20 mg tablet 40 mg (2 x 20 mg) PO DAILY 5 days 07/06/24 #10 tabs Allergies Allergy/AdvReac Type Severity Reaction Status Date / Time cucumber [CUCUMBER] Allergy Unknown HIVES Verified 07/06/24 11:19 Review of Systems Review of Systems: Yes all other systems are reviewed and are negative [facility] Past Medical History [facility] Narrative: Social history: She denies tobacco, alcohol and drug use Physical Exam ED Vital Signs: Vital Signs - 24 hr 07/06/24 11:16 Temperature 97.4 F Pulse Rate 108 H Respiratory Rate 18 Blood Pressure 113/70 Pulse Oximetry 98 Oxygen Delivery Method Room Air BMI result Body Mass Index 36.7 Vital signs were normal I am slept for an elevated heart rate of 108 beats per minute Exam: General: Awake, alert in no distress Head: Normocephalic, atraumatic, no sinus tenderness EENT: PERRL, Lids normal, sclera normal, conjunctiva normal, nose normal , external ear ears normal, normal tympanic membranes bilaterally, no external auditory canal discharge your tenderness, throat without erythema or exudates Neck: Supple, no adenopathy Lung: breath sounds symmetric, no wheezing, rales or rhonchi Chest: symmetric movement, nontender Heart: regular rate and rhythm, normal S1, S2 no murmurs or rubs Abdomen: soft, non-tender, nondistended, normal bowel sounds Back: no vertebral tenderness, no CVAT Extremities: no deformities, moves all extremities symmetrically Neuro: Awake, alert, oriented, normal speech, cranial nerves intact, moves all extremities symmetrically Psych: Pleasant, cooperative Course Course Course Narrative: RME, this is a rapid medical exam performed by Harsha Riggs please refer to primary provider for complete H&P- 24 year old female presents for evaluation of sinus congestion, headache and nausea that started this morning. Plan for labs, UA, viral swabs and testing Medical Decision Making Medical Decision Making MDM Narrative: 24-year-old female with a history of GERD, migraine headaches, sinus infections who presents emergency department for evaluation of headache associated with nausea. The patient states she has a chronic daily migraine headaches. She states that today's headache is different than her usual migraine syndrome. She states she has pain over her entire head which is intermittent. The pain is associated with nausea, feeling hot and cold, sore throat, bilateral ear pain, rhinorrhea, occasional cough with bloody mucus. She denied vomiting, photophobia, phonophobia, numbness or tingling. The patient was seen at an urgent care clinic yesterday and diagnosed with seasonal allergies and started on Flonase and Zyrtec. She states that these medications have not helped. Heart rate was elevated 108 otherwise vital signs were normal. Physical examination revealed mild tenderness palpation over her maxillary sinuses bilaterally, tympanic membranes were normal otherwise exam was unremarkable. Differential diagnosis: Includes but is not limited to migraine headache, headache, sinusitis, seasonal allergies, allergic rhinitis, UA, electrolyte abnormalities Course: 13:21 My interpretation patient's laboratory evaluation is as follows: CBC was normal. CMP was normal. COVID-19, influenza, RSV and rapid strep were negative. Urinalysis was positive for leukocyte esterase but negative for bacteria-no urinary tract infection. At this time I believe the patient's headache is due to allergic rhinitis secondary to high pollen count during the spring season. And I did discuss this with her. She was advised to continue taking the Zyrtec and Flonase. She was started on prednisone 40 mg once a day for 5 days. She was given printed and verbal instructions and discharged home. Differential Diagnosis Differential Diagnoses: The differential diagnosis associated with the presentation includes Lab Data MDM Lab Attestation statement: I reviewed the patient's lab results. 07/06/24 11:43 07/06/24 11:43 Labs: Lab Results 07/06/24 07/06/24 Range/Units 11:43 12:00 WBC 10.5 (4.8-10.8) X10*3/uL RBC 5.31 (4.20-5.50) X10*6/uL Hgb 14.8 (12.0-16.0) g/dl Hct 44.8 (37.0-47.0) % MCV 84.4 (80.0-98.0) fL MCH 27.9 (27.0-33.0) pg MCHC 33.0 (31.0-35.0) g/dl RDW 13.0 (11.0-16.0) % Plt Count 283 (160-400) X10*3/uL MPV 10.0 (9.4-12.3) fL Immature Gran % (Auto) 0.4 (0.0-0.4) % Neut % (Auto) 70.2 (45-73) % Lymph % (Auto) 20.9 (20-40) % [place] % (Auto) 6.6 (2-11) % Eos % (Auto) 1.4 (0-4) % Baso % (Auto) 0.5 (0-2) % Lymph # (Auto) 2.2 (1.2-4.9) X10*3/uL [place] # (Auto) 0.7 (0.1-1.2) X10*3/uL Eos # (Auto) 0.2 (0.0-0.4) X10*3/uL Baso # (Auto) 0.1 (0.0-0.2) X10*3/uL Abs Immat Gran (auto) 0.04 H (0.00-0.03) X10*3/uL Absolute Neuts (auto) 7.4 (2.0-8.3) x10*3/uL Absolute Nucleated RBC 0.000 (0.0-0.012) X10*3/uL Nucleated RBC % (auto) 0.0 (0.0-0.2) /100WBC Sodium 144 (135-145) mmol/L Potassium 3.7 (3.3-5.1) mmol/L Chloride 111 H (96-108) mmol/L Carbon Dioxide 23 (22-29) mmol/L Anion Gap 14 (12-20) BUN 7 L (9-16) mg/dL Creatinine 0.70 (0.5-1.4) mg/dL Estim Creat Clear Calc 145.0 Estimated GFR > 60 Random Glucose 105 (60-115) mg/dL Calcium 9.2 (8.4-10.2) mg/dL Total Bilirubin 0.3 (0.0-1.0) mg/dL AST 21 (5-31) U/L ALT 24 (0-31) U/L Alkaline Phosphatase 100 (39-117) U/L Total Protein 7.5 (6.5-8.0) g/dL Albumin 4.0 (3.5-5.0) g/dL Lipase 22 (8-78) U/L Beta HCG, Quant < 2 mIU/mL Urine Color Yellow Urine Appearance Clear Urine pH 5.5 (5.0-9.0) Ur Specific [place] <= 1.005 (1.005-1.025) Urine Protein Negative (Neg-Trace) mg/dL Urine Glucose (UA) Negative (Negative) mg/dL Urine Ketones Negative (Negative) mg/dL Urine Blood Negative (Negative) Urine Nitrite Negative (Negative) Ur Leukocyte Esterase Trace H (Negative) Urine RBC 0-2 (0-2) /HPF Urine WBC 0-5 (0-5) /HPF Ur Squamous Epith Cells 0-2 (0-2) /HPF Urine Bacteria None Seen (None Seen) Hyaline Casts 0-2 (0-2) /LPF Influenza Type A (PCR) NEGATIVE (Negative) Influenza Type B (PCR) NEGATIVE (Negative) RSV RNA Qual (PCR) NEGATIVE (Negative) SARS-CoV-2 RNA (RT-PCR) NEGATIVE (Negative) S. pyogenes GrpA FLOYD Negative (Negative) Prescription Management I considered prescription management with: Other (Anti-inflammatory steroids: Prednisone) Chronic Conditions Patient?s care impacted by: Other (Chronic migraine headache) Discharge Plan Discharge Clinical Impression: Seasonal allergic rhinitis Patient Disposition: Home, Self-Care Additional Instructions: Today you had a complete blood count, comprehensive metabolic panel, COVID-19, influenza, RSV and rapid strep test. All these tests were normal. At this time, I believe that your symptoms are caused by seasonal allergies. Continue to take the Flonase and Zyrtec as prescribed by the urgent care provider. Take prednisone 20 mg pills, 2 pills once a day for 5 days. While you ?are taking prednisone, do not take any NSAIDs (Motrin, Advil, ibuprofen, Aleve, naproxen). Take Tylenol (acetaminophen) 500 mg pills, 2 pills every 6 hours as needed for pain or fever. Follow-up with your doctor in 2 days. Please return to the emergency department if your symptoms get worse or if you develop any symptoms that are concerning to you. Prescriptions: New prednisone 20 mg tablet 40 mg PO DAILY 5 Days Qty: 10 0RF No Action ondansetron HCl [Zofran] 4 mg tablet 4 mg PO Q8H 3 Days Qty: 9 0RF meclizine 25 mg tablet 25 mg PO TID PRN (Reason: dizziness) Qty: 20 0RF ryfpmerbwu-qjingivmnrniy-vbtx 50-325-40 mg tablet 1 tab PO Q6H PRN (Reason: haeadace) Qty: 20 0RF hydrocortisone acetate [Anusol-HC] 25 mg suppository 25 mg NJ BID Qty: 12 0RF prednisone 20 mg tablet 20 mg PO DAILY 5 Days Qty: 5 0RF Print Language: Chadian
[2024-07-06 11:49] LABS: MANUAL DIFF FLAG NO
[2024-07-06 11:54] LABS: Basophils Absolute Auto 0.1 X10*3/uL (0.0-0.2); Basophils Percent Auto 0.5 % (0-2); Eosinophils Absolute Auto 0.2 X10*3/uL (0.0-0.4); Eosinophils Percent Auto 1.4 % (0-4); Hematocrit 44.8 % (37.0-47.0); Hemoglobin 14.8 g/dl (12.0-16.0); Imm Gran Abs Auto 0.04 X10*3/uL (0.00-0.03); Imm Gran Pct Auto 0.4 % (0.0-0.4); Lymphocytes Absolute Auto 2.2 X10*3/uL (1.2-4.9); Lymphocytes Percent Auto 20.9 % (20-40); Mean Corpuscular Hemoglobin 27.9 pg (27.0-33.0); Mean Corpuscular Volume 84.4 fL (80.0-98.0); Monocytes Absolute Auto 0.7 X10*3/uL (0.1-1.2); Monocytes Percent Auto 6.6 % (2-11); Neutrophils Absolute Auto 7.4 x10*3/uL (2.0-8.3); Neutrophils Percent Auto 70.2 % (45-73); Platelet Count 283 X10*3/uL (160-400); Red Blood Count 5.31 X10*6/uL (4.20-5.50); White Blood Count 10.5 X10*3/uL (4.8-10.8)
[2024-07-06 12:05] LABS: IDNOW Serial# 55D5AD1C; Strep A Nucleic Acid Negative (Negative)
[2024-07-06 12:11] LABS: Alanine Aminotransferase 24 U/L (0-31); Alkaline Phosphatase 100 U/L (39-117); Anion Gap 14 (12-20); Aspartate Amino Transferase 21 U/L (5-31); Bilirubin Total 0.3 mg/dL (0.0-1.0); Blood Urea Nitrogen 7 mg/dL (9-16); Calcium 9.2 mg/dL (8.4-10.2); Carbon Dioxide 23 mmol/L (22-29); Chloride 111 mmol/L (96-108); Estimated Glomerular Filt Rate > 60; Glucose Random 105 mg/dL (60-115); Lipase 22 U/L (8-78); Potassium 3.7 mmol/L (3.3-5.1); Sodium 144 mmol/L (135-145); Total Protein 7.5 g/dL (6.5-8.0)
[2024-07-06 12:14] LABS: HCG Quantitative < 2 mIU/mL
[2024-07-06 12:26] LABS: Appearance Urine Clear; Color Urine Yellow; Glucose Urine UA Negative (Negative); Leukocyte Esterase Urine Trace (Negative); Nitrite Urine Negative (Negative); PH 5.5 (5.0-9.0); Specific Gravity - Urine <= 1.005 (1.005-1.025); UMIC TRIGGER UACC YES; Urine Blood Negative (Negative); Urine Ketones Negative (Negative); Urine Protein Negative (Neg-Trace)
[2024-07-06 12:28] LABS: Influenza A PCR NEGATIVE (Negative); Influenza B PCR NEGATIVE (Negative); Resp Syncy Virus RNA Qual PCR NEGATIVE (Negative); SARS COV2 PCR INHOUSE NEGATIVE (Negative)
[2024-07-06 12:28] LABS: Bacteria Urine None Seen (None Seen); Hyaline Casts Urine 0-2 /LPF (0-2); RBC Urine 0-2 /HPF (0-2); Squamous Epithelial Cell Urine 0-2 /HPF (0-2); WBC Urine 0-5 /HPF (0-5)
--- OUTSIDE RECORDS SUMMARY | 2024-07-06 13:40 | XMS_ITS | Encounter Summary ---
Author Organization [facility] Address [address] [place] [phone] Phone Care Team Providers Care Firer Helper Name Role Phone Jennifer Weir NP Primary Care Provider Unavailabl e Encounter Details Date Type Department Care Team (Late st Contact Info) Description 10/08/2016 Conversion Encounter [facility] - [address] [address] Social History Tobacco Use Types Packs/Day Years [...] on filedocumented in this encounter Care Teams Firer Helper Relationship Specialty Start Date End Date Jennifer Weir NP PCP - General Pediatrics 11/15/20 documented as of this encounter
--- OUTSIDE RECORDS SUMMARY | 2024-07-06 13:40 | XMS_ITS | Clinical Summary ---
Author Organization [facility] Address 175 [place] [address] Phone Care Team Providers Care Asian Studies Professor Name Role Phone Lorrie Villegas MD Primary Care Provider [phone] Allergies Active Allergy Reactions Criticality Noted Date Comments [place] 05/04/2023 Medications ibuprofen (ADVIL,MOTRIN) 800 mg tablet [...] Severe obesity (BMI 35.0-35. 9 with comorbidity) ([facility] V24, [facility] V28) 01/07/2024 Kidney stones 05/17/2023 GERD (gastroesophageal reflux disease) Migraine 05/04/2023 Depression 09/30/2022 Encounters Date Type Department Care Team Description 05/30/2024 1:15 PM EDT Office Visit Adult Medicine [address] [phone] Lorrie Villegas MD Chest pain, unspecified type (Primary Dx) 05/03/2024 2:30 PM EDT Treatment [address] [phone] Elizabeth Franz, PT Neck pain on left side (Primary Dx); Chronic migraine with aura without status migrainosus, not intractable 04/28/2024 Telephone Bariatric Surgery [address] [phone] Heather Moser PA 04/18/2024 2:30 PM EST Consult [address] [address] Heather Moser PA Severe obesity (BMI 35.0-35.9 with comorbidity) ([facility] V24, [facility] V28) (Primary Dx) 04/17/2024 1:45 PM EST Treatment [address] [phone] Ilir Hernandez, MATERIAL INSPECTOR Neck pain on left side (Primary Dx) 04/13/2024 1:30 PM EST Office Visit [facility] 175 [facility] [address] [place] [phone] Carla San PA Chronic migraine with aura without status migrainosus, not intractable (Primary Dx); Sinusitis, unspecified chronicity, unspecified location from Last 3 Months Immunizations Name Administration [...] Description 07/10/2024 3:00 PM EDT Office Visit [facility] [address] [facility] [address] [place] [phone] Carla San, MARIAH [address] [facility] [address] [place] [address] 07/12/2024 11:15 AM EDT Office Visit Adult Medicine [address] [place] [address] Carmencita Kohler PA [address] [place] [address] 07/13/2024 8:00 AM EDT Office Visit Bariatric Surgery - [place] [address] [facility] [address] [place] [phone] Heather Moser PA 175 [facility] [address] [place] [address] Health Maintenance Due Date Last Done Comments [...] Years) Aged Out 05/27/2000, 01/26/2000 No longer elifloridalma e based on patient's age to complete [...] Results * D-Dimer (05/30/2024 2:01 PM EDT) Pathologist [facility] D-Dimer, Quant (D-DU) <150 <=230 ng/mL DDU LAB COAGULATION METHOD 05/30/2024 4:59 PM EDT [facility] Blood Venous blood specimen / Unknown Venipuncture / Unknown 05/30/2024 2:01 PM EDT 05/30/2024 2:02 PM EDT Narrative [facility] - 05/30/2024 4:59 PM EDT D-Dimer <230 ng/mL (D-Dimer units) is the threshold for exclusion of DVT/PE. D-Dimer may be elevated in: Critically ill, severely infected, trauma patients, DIC, acute CVA, acute AL, unstable angina, AF, old age, , and smoking. D-Dimer may be decreased with: Initiation of heparin therapy and oral anticoagulants. us Lorrie Villegas MD LAB BLOOD ORDERABLES Final Resul t [facility]) [facility] [address] [place] [address], [place] [phone] * (ABNORMAL) Lipid panel (11/03/2023) LDL/HDL Ratio 4 0 - 4 Triglycerides 90 0 - 150 mg/dL Cholesterol 176 0 - 200 mg/dL HDL 40 >=40 mg/dL LDL Cholesterol 118(A) 0 - 100 mg/dL Blood Venous blood specimen / Unknown us Historical Provider LAB BLOOD ORDERABLES Sandy l Result from Last 3 Months or Most Recently Relevant to Health [place] [id number] [facility] Care Teams Asian Studies Professor Relationship Specialty Start Date End Date Lorrie Villegas MD [address] [place] [address] PCP - General 05/06/23
--- OUTSIDE RECORDS SUMMARY | 2024-07-06 13:40 | XMS_ITS | Encounter Summary ---
Author Organization [facility] Address [address] [place] [address] Phone Care Team Providers Care Wellness Nurse Name Role Phone Jennifer Weir NP Primary Care Provider Unavailabl e Encounter Details Date Type Department Care Team (Late st Contact Info) Description 12/28/2013 Documentation [facility] Family Medicine [address] [place] [address] Family Medicine, Physician [address], [place] [address] Social History Tobacco Use Types Packs/Day Years [...] on filedocumented in this encounter Care Teams Wellness Nurse Relationship Specialty Start Date End Date Jennifer Weir NP PCP - General Pediatrics 11/15/20 documented as of this encounter
--- OUTSIDE RECORDS SUMMARY | 2024-07-06 13:40 | XMS_ITS | Clinical Summary ---
Author Organization [facility] Address [address] [place] [address] Phone Care Team Providers Care Hotel Houseman Name Role Phone Jennifer Weir NP Primary Care Provider Unavailabl e Allergies Active Allergy Reactions Criticality Noted Date Comments [place] Extract Hives 10/07/2018 Medications Etonogestrel (NEXPLANON SC) Inject under the skin. Active Active Problems Problem Noted Date Diagnosed Date History of elective 09/02/2020 Overview (09/05/2020): [facility]; says she does not use protection as she is w/ her boyfriend of 5 years; advised need gynecologist: pt defer STI serology labs for gynecologist Assessment & Plan (09/05/2020 7:01 AM EDT): [facility]; says she does not use protection as she is w/ her boyfriend of 5 years; advised need gynecologist: pt defer STI serology labs for gynecologist Mood swings 09/02/2020 Assessment & Plan (09/05/2020 6:28 AM EDT): In and out of therapy; depression pt says maybe I was told maybe I have Bipolar too warm hand off Rimma Kwok PHQ-9 score 16 Gastroesophageal reflux disease without esophagi tis 02/24/2019 Overview (02/24/2019): Seen by [facility] adult GI Pantoprazole (Protonix) Assessment & Plan (09/02/2020 4:19 PM EDT): No follow since covid 19; off PPI needs to see Adult GI and likely would need an endoscopy due to hx of senior care PPI use and 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 Procedure Name Priority Date/Time Associated Diagnosis Comments CHLAMYDIA AND GONORRHEA, AMPLIFIED Routine 09/02/2020 3:16 PM EDT Screening examination for bacterial and spirochetal disease from Last 3 Months or Most Recently Relevant to Health Maintenance Results * Due to [place] [employer] law, this organization might not be sharing sensitive test results. * Chlamydia and Gonorrhoea, Amplified (09/02/2020 3:16 PM EDT) Chlamydia Trachomatis, DNA Probe NEGATIVE (NEG) [facility] Comment: No Chlamydia Trachomatis RNA detected in this patient's sample ? (REFERENCE RANGE/NORMAL VALUE: NOT DETECTED) ? Note: This test uses track greaser- mediated amplification method to detect rRNA from C. Trachomatis URINE GC AMP PROBE NEGATIVE (NEG) [facility] Comment: No Neisseria Gonorrhoeae RNA detected in this patient's sample ? (REFERENCE RANGE/NORMAL VALUE: NOT DETECTED) ? NOTE: This test uses track greaser-mediated amplification method to detect rRNA from N.Gonorrhoeae. [...] without risk of sexual abuse. Consult the [facility] if needed. Contact phone number . Therapeutic failure or success cannot be determined with the Aptima Combo2 assay since nucleic acid may persist following appropriate antimicrobial therapy. The Centers for Disease Control and Prevention (CDC) recommends confirmatory retesting using culture or a different nucleic acid amplification test when positive results occur, if indicated. Testing performed or reported by [facility], a Service of [facility], [facility] [place] [address] Wilmer Nino MD, [employer] Vegetable Urine 09/02/2020 3:16 PM EDT 09/02/2020 10:16 PM EDT us Jennifer Weir NP LAB MICROBIOLOGY - GENERAL ORDER [place] Final Result [facility] from Last 3 Months or Most Recently Relevant to Health Maintenance Insurance [facility] Care Teams Hotel Houseman Relationship Specialty Start Date End Date Jennifer Weir NP PCP - General Pediatrics 11/15/20
--- OUTSIDE RECORDS SUMMARY | 2024-07-06 13:40 | XMS_ITS | Encounter Summary ---
Author Organization [facility] Address [address] [place] [address] Care Team Providers Care Business Objects Developer Name Role Phone Lorrie Villegas MD Primary Care Provider [phone] Encounter Details Date Type Department Care Team (Late st Contact Info) Description 12/16/2023 2:00 PM EDT Hospital Encounter TH HISTORIC ENCOUNTERS EASTERN CONVERSION ONLY Carla San PA 175 [facility] [address] [place] [address] Social History Tobacco Use Types Packs/Day Years [...] returns for follow-up visit. She presented to [facility] on 12/03 [...] 30 minutes. The majority of the actual hlto-zv-mmqk visit was spent counseling the patient with respect to the current neurological picture. Carla San PA-C documented in this encounter Plan of Treatment Upcoming Encounters Date Type Department Care Team (Late st Contact Info) Description 07/10/2024 3:00 PM EDT Office Visit [facility] [place] 175 [facility] [address] [place] [phone] Carla San PA 175 [facility] [address] [place] [address] 07/12/2024 11:15 AM EDT Office Visit Adult Medicine [facility] [address] [place] [address] Carmencita Kohler PA [address] [place], [place] 07/13/2024 8:00 AM EDT Office Visit Bariatric Surgery - [place] 175 [facility] [address] [place] [phone] Heather Moser PA [address] [address] documented as of this encounter Visit Diagnoses Not on filedocumented in this encounter Care Teams Business Objects Developer Relationship Specialty Start Date End Date Lorrie Villegas MD [address] [place] [address] PCP - General 05/06/23 documented as of this encounter
[2024-07-06 13:43] VITALS: BP 113/70; PULSE 108; RESP 18; TEMP 36.3; O2SAT 98
== END 2024-07-06 13:43 | disposition home or self-care (01) ==
PROVIDERS: Physician Assistant; Emergency Provider Emergency Medicine Emergency Medical Services; PCP Internal Medicine
DX: J30.9 Allergic rhinitis, unspecified (principal); R51.9 Headache, unspecified; Z03.818 Encounter for observation for suspected exposure to other biological agents ruled out
CPT/HCPCS: 0241U; 80053; 81001; 83690; 84702; 85025; 87651; 99282; 99283

== ENCOUNTER 2024-08-14 02:32 | Emergency (ER) | payer OTHER, SELFPAY ==
--- NOTE | ~2024-08-14 | CT_ITS ---
CLINICAL HISTORY: blurry vision rogers CT head without contrast Comparison: None provided Findings: No intra-axial mass, midline shift, hydrocephalus, or acute hemorrhage. No significant atrophy-like change or white matter disease. The visualized paranasal sinuses and mastoid air cells are normal. The orbits are unremarkable. There is no acute fracture. IMPRESSION: 1. No acute intracranial findings. This document has been electronically signed by: Tamara Huggins MD on 08/14/2024 05:56:31
[2024-08-14 02:34] VITALS: BP 114/78; PULSE 85; RESP 18; TEMP 36.6; O2SAT 98; BMI 38.7
--- OUTSIDE RECORDS SUMMARY | 2024-08-14 03:09 | XMS_ITS | Encounter Summary ---
Author Organization [facility] Address [address] [place] [address] Phone Care Team Providers Care Civil Project Engineer Name Role Phone Jennifer Weir NP Primary Care Provider Unavailabl e Encounter Details Date Type Department Care Team (Late st Contact Info) Description 10/08/2016 Conversion Encounter [facility] - [address] [address] Social History Tobacco Use Types Packs/Day Years [...] filedocumented in this encounter Care Teams Civil Project Engineer Relationship Specialty Start Date End Date Jennifer Weir NP PCP - General Pediatrics 11/15/20 documented as of this encounter
--- NOTE | 2024-08-14 03:37 | ED.GENADULT ---
HPI - General Adult General Chief complaint: General Medical Stated complaint: right eye blurry vision, face tingling Time Seen by Provider: 08/14/24 03:20 Source: patient Mode of arrival: ambulatory Limitations: no limitations History of Present Illness ED Provider: HPI narrative: Patient's history of migraine headaches in the past woke up an hour prior to arrival and noticed that her right facial numb also her upper and lower extremities were also numb but patient is able to ambulate and function denies any vision problems no rash noticed, no recent fall patient's neurologist last week subacute MRI next week for blurred vision patient is ambulatory in his steady gait no motor weakness as such Related Data Previous Rx's ?Medication ?Instructions ?Recorded ondansetron HCl 4 mg tablet 4 mg PO Q8H 3 days #9 tabs 11/04/20 (Zofran) meclizine 25 mg tablet 25 mg PO TID PRN dizziness #20 tabs 04/16/23 prednisone 20 mg tablet 20 mg PO DAILY 5 days #5 tabs 12/02/23 zrmdeudjxh-nxrpftqwfjpqg-taulsbzj 1 tab PO Q6H PRN haeadace #20 tabs 12/05/23 50 mg-325 mg-40 mg tablet hydrocortisone acetate 25 mg 25 mg NM BID #12 ea 12/05/23 rectal suppository (Anusol-HC) prednisone 20 mg tablet 40 mg (2 x 20 mg) PO DAILY 5 days 07/06/24 #10 tabs prednisone 20 mg tablet 60 mg (3 x 20 mg) PO DAILY #15 tabs 08/14/24 valacyclovir 1 gram tablet 1,000 mg PO TID #20 tabs 08/14/24 (Valtrex) white petrolatum-mineral oil 56.8 1 appl ophthalmic (eye) BEDTIME 08/14/24 %-42.5 % eye ointment (Refresh PRN dry eyes #3.5 grams Lacri-Lube) Allergies Allergy/AdvReac Type Severity Reaction Status Date / Time cucumber (CUCUMBER) Allergy Unknown HIVES Verified 08/14/24 02:38 Review of Systems Review of Systems: Yes all other systems are reviewed and are negative PMFSH Past Medical History [facility] Narr[facility]: Migraine headache paresthesia Physical Exam ED Vital Signs: Vital Signs - 24 hr 08/14/24 02:34 Temperature 97.8 F Pulse Rate 85 Respiratory Rate 18 Blood Pressure 114/78 Pulse Oximetry 98 Oxygen Delivery Method Room Air BMI result Body Mass Index 38.7 Appearance: Alert. Oriented X3. No acute distress. Eyes: PERRLA, No Nystagmus ENT: Pharynx normal. Oral Mucosa moist Neck: Normal inspection. Neck supple. CVS: Normal heart rate and rhythm. Pulses normal. Respiratory: No respiratory distress. Equal air entry bilateral, no wheezing/rales/rhonchi Abdomen: Soft and nontender. Bowel sounds are present, no mass palpable, no CVA tenderness Skin: Skin warm and dry. Normal skin color. Normal skin turgor. Extremities: No lower extremity edema. No calf tenderness Neuro: Oriented X 3. 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 08/14/24 03:58 08/14/24 03:58 Labs: Lab Results 08/14/24 Range/Units 03:58 WBC 12.6 H (4.8-10.8) X10*3/uL RBC 5.40 (4.20-5.50) X10*6/uL Hgb 15.0 (12.0-16.0) g/dl Hct 44.9 (37.0-47.0) % MCV 83.1 (80.0-98.0) fL MCH 27.8 (27.0-33.0) pg MCHC 33.4 (31.0-35.0) g/dl RDW 13.1 (11.0-16.0) % Plt Count 327 (160-400) X10*3/uL MPV 10.0 (9.4-12.3) fL Immature Gran % (Auto) 0.4 (0.0-0.4) % Neut % (Auto) 60.9 (45-73) % Lymph % (Auto) 31.1 (20-40) % [place] % (Auto) 6.0 (2-11) % Eos % (Auto) 1.1 (0-4) % Baso % (Auto) 0.5 (0-2) % Lymph # (Auto) 3.9 (1.2-4.9) X10*3/uL [place] # (Auto) 0.8 (0.1-1.2) X10*3/uL Eos # (Auto) 0.1 (0.0-0.4) X10*3/uL Baso # (Auto) 0.1 (0.0-0.2) X10*3/uL Abs Immat Gran (auto) 0.05 H (0.00-0.03) X10*3/uL Absolute Neuts (auto) 7.7 (2.0-8.3) x10*3/uL Absolute Nucleated RBC 0.000 (0.0-0.012) X10*3/uL Nucleated RBC % (auto) 0.0 (0.0-0.2) /100WBC ESR 23 H (0-20) MM/HR Sodium 143 (135-145) mmol/L Potassium 4.1 (3.3-5.1) mmol/L Chloride 109 H (96-108) mmol/L Carbon Dioxide 25 (22-29) mmol/L Anion Gap 13 (12-20) BUN 7 L (9-16) mg/dL Creatinine 0.76 (0.5-1.4) mg/dL Estim Creat Clear Calc 141.3 Estimated GFR > 60 Random Glucose 99 (60-115) mg/dL Calcium 9.6 (8.4-10.2) mg/dL Total Bilirubin 0.5 (0.0-1.0) mg/dL AST 29 (5-31) U/L ALT 29 (0-31) U/L Alkaline Phosphatase 102 (39-117) U/L C-Reactive Protein 0.59 H (< or = 0.50) mg/dL Total Protein 7.7 (6.5-8.0) g/dL Albumin 4.6 (3.5-5.0) g/dL Independent Interpretation I performed an independent interpretation of an: CT Scan Interpretation: No acute Discharge Plan Discharge Clinical Impression: Godoy's palsy Patient Disposition: Home, Self-Care Instructions: Ogdoy Palsy (ED) Additional Instructions: Take medication as prescribed for your Godoy's palsy Protection for the eyes as advised You may use a straw to have food Prescriptions: New prednisone 20 mg tablet 60 mg PO DAILY Qty: 15 0RF valacyclovir [Valtrex] 1 gram tablet 1,000 mg PO TID Qty: 20 0RF Refresh Lacri-Lube 56.8-42.5 % ointment 1 appl ophthalmic (eye) BEDTIME PRN (Reason: dry eyes) Qty: 3.5 0RF No Action ondansetron HCl [Zofran] 4 mg tablet 4 mg PO Q8H 3 Days Qty: 9 0RF meclizine 25 mg tablet 25 mg PO TID PRN (Reason: dizziness) Qty: 20 0RF qgpihqckuy-lsjjvihdttdpa-xlhy 50-325-40 mg tablet 1 tab PO Q6H PRN (Reason: haeadace) Qty: 20 0RF hydrocortisone acetate [Anusol-HC] 25 mg suppository 25 mg NM BID Qty: 12 0RF prednisone 20 mg tablet 40 mg PO DAILY 5 Days Qty: 10 0RF prednisone 20 mg tablet 20 mg PO DAILY 5 Days Qty: 5 0RF Referrals: Clarissa Stanley MD [Physician, Neurology] Referral Note: Godoy's palsy Interventions: ED Discharge Assessment Last Done: 08/14/24 06:34 Discharge Date/Time: 08/14/24 06:35 Print Language: Hungarian
[2024-08-14] MEDS: predniSONE 20 MG TABLET 40 MG PO (03:56)
[2024-08-14] MEDS: valACYclovir HCL 1,000 MG TABLET 1000 MG PO (03:56)
--- NOTE | 2024-08-14 04:00 | PC.NURSE ---
pt presents to ED with numbness to face and hands on right side as well as blurry vision on R side. Pt sees a neurologist but has not yet seen them for this. Provider at bedside discussing symptoms and plan. Pt medicated per MAR. No pain reported, Respirations even and unlabored.
[2024-08-14 04:03] LABS: Basophils Absolute Auto 0.1 X10*3/uL (0.0-0.2); Basophils Percent Auto 0.5 % (0-2); Eosinophils Absolute Auto 0.1 X10*3/uL (0.0-0.4); Eosinophils Percent Auto 1.1 % (0-4); Hematocrit 44.9 % (37.0-47.0); Imm Gran Abs Auto 0.05 X10*3/uL (0.00-0.03); Imm Gran Pct Auto 0.4 % (0.0-0.4); Lymphocytes Absolute Auto 3.9 X10*3/uL (1.2-4.9); Lymphocytes Percent Auto 31.1 % (20-40); MANUAL DIFF FLAG NO; Mean Corpuscular HGB Conc 33.4 g/dl (31.0-35.0); Mean Corpuscular Hemoglobin 27.8 pg (27.0-33.0); Mean Corpuscular Volume 83.1 fL (80.0-98.0); Monocytes Absolute Auto 0.8 X10*3/uL (0.1-1.2); Neutrophils Absolute Auto 7.7 x10*3/uL (2.0-8.3); Neutrophils Percent Auto 60.9 % (45-73); Platelet Count 327 X10*3/uL (160-400); Red Cell Distribution Width 13.1 % (11.0-16.0); White Blood Count 12.6 X10*3/uL (4.8-10.8)
[2024-08-14 04:18] LABS: Alanine Aminotransferase 29 U/L (0-31); Albumin Level 4.6 g/dL (3.5-5.0); Alkaline Phosphatase 102 U/L (39-117); Anion Gap 13 (12-20); Aspartate Amino Transferase 29 U/L (5-31); Bilirubin Total 0.5 mg/dL (0.0-1.0); Blood Urea Nitrogen 7 mg/dL (9-16); C Reactive Protein 0.59 mg/dL (< or = 0.50); Calcium 9.6 mg/dL (8.4-10.2); Carbon Dioxide 25 mmol/L (22-29); Chloride 109 mmol/L (96-108); Creatinine Clr Calc Pharmacy 141.3; Estimated Glomerular Filt Rate > 60; Glucose Random 99 mg/dL (60-115); Potassium 4.1 mmol/L (3.3-5.1); Sodium 143 mmol/L (135-145); Total Protein 7.7 g/dL (6.5-8.0)
[2024-08-14 04:51] LABS: Erythrocyte Sedimentation Rate 23 MM/HR (0-20)
[2024-08-14 06:34] VITALS: BP 122/78; PULSE 78; RESP 17; TEMP 36.9; O2SAT 99
== END 2024-08-14 06:35 | disposition home or self-care (01) ==
PROVIDERS: Emergency Provider Internal Medicine
DX: G51.0 Bell's palsy (principal); H53.8 Other visual disturbances; Z79.899 Other long term (current) drug therapy
CPT/HCPCS: 36415; 70450; 80053; 85025; 85652; 86140; 99284

== ENCOUNTER → 2024-08-14 03:43 | Outpatient (BNV) | payer OTHER, SELFPAY | PROVIDERS: Emergency Provider Internal Medicine; Visit Provider Radiology Diagnostic Radiology | DX: H53.8 Other visual disturbances (principal) | CPT/HCPCS: 70450 ==

== ENCOUNTER 2024-10-05 21:05 | Emergency (ER) | payer OTHER, SELFPAY ==
--- OUTSIDE RECORDS SUMMARY | 2023-12-16 14:00 | XMS_ITS | Encounter Summary ---
Author Organization [facility] Address [address] [place] [address] Care Team Providers Care Bar Pointer Name Role Phone Cathi Zimmerman MD Primary Care Provider [phone] Encounter Details Date Type Department Care Team (Late st Contact Info) Description 12/16/2023 2:00 PM EDT Hospital Encounter TH HISTORIC ENCOUNTERS EASTERN CONVERSION ONLY Carla San PA [address] [facility] [address] [place] [address] Social History Tobacco Use Types Packs/Day Years [...] returns for follow-up visit. She presented to [facility] ER on 12/03 reporting symptoms of zapping [...] 30 minutes. The majority of the actual [id number]-fp-ytqy visit was spent counseling the patient with respect to the current neurological picture. Carla San PA-C documented in this encounter Plan of Treatment Upcoming Encounters Date Type Department Care Team (Late st Contact Info) Description 10/19/2024 11:30 AM EDT Office Visit [facility] [place] 175 [facility] [address] [place] [phone] Carla San PA 175 [facility] [address] [place] [address] 10/24/2024 10:15 AM EDT Office Visit Bariatric Surgery - [place] 175 [facility] [address] [place] [phone] Heather Moser PA 175 [facility] [address] [place] [address] 10/30/2024 1:15 PM EDT Office Visit Adult Medicine [address] [phone] Frandy Bhakta PA [address] [place] [address] 12/18/2024 8:20 AM EDT Office Visit Gastroenterology - [place] 175 [facility] 175 [facility] [address] [place] [address] Jayashree Luther, RADHA 175 [facility] [address] [place] [address] documented as of this encounter Visit Diagnoses Not on filedocumented in this encounter Care Teams Bar Pointer Relationship Specialty Start Date End Date Cathi Zimmerman MD [address] [place] [address] PCP - General Internal Medicine 05/06/23 documented as of this encounter
--- NOTE | ~2024-10-05 | CT_ITS ---
CLINICAL HISTORY: left flank pain CT abdomen and pelvis without contrast Comparison: None provided Findings: No consolidation or effusion. Unremarkable gallbladder and solid organs. Mild left hydronephrosis and hydroureter with a 2 mm obstructing stone at the ureterovesicular junction. Punctate additional stones are noted within the left kidney lower pole. At least 2 nonobstructing stones are noted within the right kidney lower pole measuring up to 5 mm in size. No bowel obstruction, pneumoperitoneum, or pneumatosis. Pelvic contents unremarkable. Normal appendix. The bones are intact. IMPRESSION: Mild left hydronephrosis and hydro ureter with a 2 mm obstructing stone in the ureterovesicular junction. Additional punctate nonobstructing stones within the left kidney. Right kidney nonobstructing stones measuring up to 5 mm. This document has been electronically signed by: Roderick Bentley MD on 10/05/2024 22:50:21
[2024-10-05 21:19] VITALS: BP 146/71; PULSE 97; RESP 20; TEMP 36.6; O2SAT 97; BMI 35.1
--- NOTE | 2024-10-05 21:20 | PC.NURSE ---
Notified by registration staff that support person told them the patient was laying down on bathroom floor. This RN approached room, found patient laying on floor. Asked patient why she was on the floor, patient stated she is in a lot of pain so she just laid on the floor . Emergency response activated d/t inability of patient to stand by themselves/needing extra help. Patient assisted to standing by Yosvany candelario and t/w, assisted into stretcher & brought to 16[facility]. education counselor sid burgos.
--- OUTSIDE RECORDS SUMMARY | 2024-10-05 21:34 | XMS_ITS | Clinical Summary ---
Author Organization [facility] Address [address] [place] [address] Care Team Providers Care Record Label Intern Name Role Phone Lorrie Villegas MD Primary Care Provider [phone] Medications Medication Sig Dispensed Refills Start Date [...] 89 11/04/2023 2:34 PM EDT Temperature 36.1 C (96.9 F) 11/04/2023 2:34 PM EDT Respiratory Rate - - Oxygen Saturation 96% [...] 09/15/2000, Additional history exists Influenza Vaccine (#1) 2024 9, 11/05/2016, 11/28/2015, Additional history exists Hepatitis B Vaccines Completed 01/26/2000, 1999, 1999 Pneumococcal Vaccine Aged Out 05/27/2000, 01/26/20 00 No longer eligible based on patient's age to complete this topic RSV Ped < 20 months Aged Out No longe r eligible based on patient's age to complete this topic Care Teams Record Label Intern Relationship Specialty Start Date End Date Lorrie Villegas MD PCP - General Internal Medicine 05/06/23
--- NOTE | 2024-10-05 21:50 | PC.NURSE ---
Patient is now reporting left arm numbness. Significant other has approached nurse's station 3x in past ~35 minutes. Awaiting ED provider evaluation. Spoke with MARIAH Matthews regarding symptoms & request for pain medications. Labs ordered to be drawn while waiting. Care ongoing by this RN.
--- NOTE | 2024-10-05 22:01 | ED_ITS ---
HPI - Abdominal Pain General Chief Complaint: Abdominal Pain Stated Complaint: back & left side abd pain Time Seen by Provider: 10/05/24 21:50 Source: patient and family Mode of arrival: ambulatory Limitations: no limitations History of Present Illness ED Provider: DR. Sanderson HPI narrative: 24-year-old female who is otherwise healthy presented with left flank pain started about 2 hours ago pain is radiating up toward the left lung and down toward the left lower quadrant area and left lower extremity. Pain described as 10/10, no relieving factor or aggravating factor. Pain is worsening with left upper extremity numbness, otherwise no weakness, pain also is complaining of nausea without vomiting, no fever, chills patient reports suprapubic pressure and some discomfort with urination. No history of intra-abdominal surgery. Declined chance of being . Related Data Previous Rx's ?Medication ?Instructions ?Recorded ondansetron HCl 4 mg tablet 4 mg PO Q8H 3 days #9 tabs 11/04/20 (Zofran) meclizine 25 mg tablet 25 mg PO TID PRN dizziness # 20 tabs 04/16/23 prednisone 20 mg tablet 20 mg PO DAILY 5 days #5 tab s 12/02/23 nnaxhzuqxx-fulqggdmpemam-afhnnyyb 1 tab PO Q6H PRN hae adace #20 tabs 12/05/23 50 mg-325 mg-40 mg tablet hydrocortisone acetate 25 mg 25 mg AR BID #12 ea 12/04 rectal suppository (Anusol-HC) prednisone 20 mg tablet 40 mg (2 x 20 mg) PO DAILY 5 days 07/06/24 #10 tabs prednisone 20 mg tablet 60 mg (3 x 20 mg) PO DAILY # 15 tabs 08/14/24 valacyclovir 1 gram tablet 1,000 mg PO TID #20 tabs (Valtrex) white petrolatum-mineral oil 56.8 1 appl ophthalmic (e ye) BEDTIME 08/14/24 %-42.5 % eye ointment (Refresh PRN dry eyes #3.5 grams Lacri-Lube) cefuroxime axetil 250 mg tablet 250 mg PO BID #14 tabs 10/06/24 Allergies Allergy/AdvReac Type Severity Reaction Status Date / Time cucumber (CUCUMBER) Allergy Unknown HIVES Verified 10/05/24 21:25 Review of Systems Review of Systems All other systems are reviewed and are negative Constitutional: Reports as per HPI and Reports no additional constitutional complaints Eyes: Reports as per HPI and Reports no additional eye complaints Reports system reviewed and no additional complaints, except as documented Cardiovascular: Reports as per HPI and Reports no additional cardiovascular complaints Respiratory: Reports as per HPI and Reports no additional respiratory complaints Gastrointestinal: Reports as per HPI and Reports no additional gastrointestinal complaints Genitourinary: Reports no additional female genitourinary complaints Musculoskeletal: Reports no additional musculoskeletal complaints Skin/Breast: Reports system reviewed and no additional complaints, except as docu Psychiatric: Reports no additional psychiatric complaints Endocrine: Reports no additional endocrine complaints Hematologic/Lymphatic: Reports no additional hematologic/lymphatic complaints Allergic/Immunologic: Reports no additional allergic/immunologic complaints Reports system reviewed and no additional complaints, except as documented and Reports Abnormal speech present [facility] Social History Social History Advance Directives: No Advance Directives Information Provided: No Physical Exam ED Vital Signs: Vital Signs - 24 hr 10/05/24 21:19 Temperature 97.8 F Pulse Rate 97 Respiratory Rate 20 Blood Pressure 146/71 H Pulse Oximetry 97 Oxygen Delivery Method Room Air BMI result Body Mass Index 35.1 Vital signs have been reviewed and appear to be correct. Blood pressure elevated. Heart rate normal. Respiratory rate normal. Temperature normal. Oxygen saturation normal. Appearance: Alert. Oriented X3. No acute distress. Head: Normal external exam. Normocephalic. Atraumatic. No Keane signs noted. No raccoon eyes noted Eyes: PERRLA. EOMI. Conjunctiva and sclera normal. Eyelids normal. ENT: TM's Normal. Pharynx normal. Uvula midline. Moist mucous membranes. No trismus noted. No drooling noted. No muffled voice noted. Neck: Normal inspection. Neck supple. FROM. No adenopathy. Thyroid Normal. No meningeal signs. No neck mass noted. CVS: Normal heart rate and rhythm. Heart sound normal. No murmurs noted. Pulses normal throughout. Respiratory: No respiratory distress. Painless inspiration. Breath sounds normal. No wheezes/rales/rhonchi noted. Chest nontender. No accessory muscle usage noted or decreased air movement noted. Abdomen: Soft and nontender. Bowel sounds normal in all 4 quadrants. No distention noted. No organomegaly noted. No visible injury noted. Back: Mild left CVA tenderness. Full range of motion noted. Skin: Skin warm and dry. Normal skin color. Normal skin turgor. No rashes/lesions/lacerations noted. Extremities: No lower extremity edema. Extremities exhibit normal range of motion. Extremities nontender. Neuro: Oriented X 3. Cranial nerve exam: II-XII are grossly intact No motor deficit. No sensory deficit. Reflexes normal. Course Reevaluation(s) Reevaluation #1: Left renal colic pain secondary to 2 mm obstructing stone at the UVJ, patient felt better after pain medication, no pain for the last hour and half likely patient passed stone, will start the patient on cefuroxime for 7 days' course, and follow-up with urologist, patient was instructed to drink plenty of fluids. Time: 00:30 Medical Decision Making Differential Diagnosis Differential Diagnoses: The differential diagnosis associated with the presentation includes (Pyelonephritis, ureteric stone, UTI, pancreatitis, colitis, diverticulitis, electrolyte derangement, severe anemia.) Admission/Observation Consideration of admission/observation: Escalation of care including admission/observation considered Lab Data MDM Lab Attestation statement: I reviewed the patient's lab results. 10/05/24 22:24 10/05/24 22:24 Labs: Lab Results 10/05/24 10/05/24 Range/Units 22:24 23:28 WBC 13.1 H (4.8-10.8) X10*3/uL RBC 5.25 (4.20-5.50) X10*6/uL Hgb 14.8 (12.0-16.0) g/dl Hct 43.4 (37.0-47.0) % MCV 82.7 (80.0-98.0) fL MCH 28.2 (27.0-33.0) pg MCHC 34.1 (31.0-35.0) g/dl RDW 13.1 (11.0-16.0) % Plt Count 304 (160-400) X10*3/uL MPV 9.8 (9.4-12.3) fL Immature Gran % (Auto) 0.3 (0.0-0.4) % Neut % (Auto) 64.6 (45-73) % Lymph % (Auto) 28.6 (20-40) % [place] % (Auto) 5.5 (2-11) % Eos % (Auto) 0.5 (0-4) % Baso % (Auto) 0.5 (0-2) % Lymph # (Auto) 3.7 (1.2-4.9) X10*3/uL [place] # (Auto) 0.7 (0.1-1.2) X10*3/uL Eos # (Auto) 0.1 (0.0-0.4) X10*3/uL Baso # (Auto) 0.1 (0.0-0.2) X10*3/uL Abs Immat Gran (auto) 0.04 H (0.00-0.03) X10*3/uL Absolute Neuts (auto) 8.4 H (2.0-8.3) x10*3/uL Absolute Nucleated RBC 0.000 (0.0-0.012) X10*3/uL Nucleated RBC % (auto) 0.0 (0.0-0.2) /100WBC PT 12.0 (10.9-12.4) SEC INR 1.0 (0.9-1.1) D-Dimer High Sensitivty < 150 NG/ML Sodium 140 (135-145) mmol/L Potassium 3.6 (3.3-5.1) mmol/L Chloride 110 H (96-108) mmol/L Carbon Dioxide 22 (22-29) mmol/L Anion Gap 12 (12-20) BUN 10 (9-16) mg/dL Creatinine 0.93 (0.5-1.4) mg/dL Estim Creat Clear Calc 105.7 Estimated GFR > 60 Random Glucose 119 H (60-115) mg/dL Calcium 9.2 (8.4-10.2) mg/dL Total Bilirubin 0.4 (0.0-1.0) mg/dL Direct Bilirubin 0.1 (0.0-0.5) mg/dL AST 26 (5-31) U/L ALT 24 (0-31) U/L Alkaline Phosphatase 105 (39-117) U/L Troponin I High Sens < 2.7 (<3.5-17.0) ng/L Total Protein 7.3 (6.5-8.0) g/dL Albumin 4.4 (3.5-5.0) g/dL Lipase 22 (8-78) U/L Beta HCG, Quant < 2 mIU/mL Urine Color Dark Yellow Urine Appearance Clear Urine pH 6.0 (5.0-9.0) Ur Specific [place] 1.010 (1.005-1.025) Urine Protein Trace (Neg-Trace) mg/dL Urine Glucose (UA) Negative (Negative) mg/dL Urine Ketones Negative (Negative) mg/dL Urine Blood Large (3+) H (Negative) Urine Nitrite Positive H (Negative) Ur Leukocyte Esterase Small (1+) H (Negative) Urine RBC 3-5 H (0-2) /HPF Urine WBC 0-5 (0-5) /HPF Ur Squamous Epith Cells 3-5 (0-2) /HPF Urine Bacteria None Seen (None Seen) Hyaline Casts 0-2 (0-2) /LPF Urine Opiates Screen Not Detected (Not Detect) Ur Buprenorphine Scrn Not Detected (Not Detect) ng/mL Ur Oxycodone Screen Not Detected (Not Detect) ng/mL Urine Methadone Screen Not Detected (Not Detect) ng/mL Urine Fentanyl Screen Not Detected (Not Detect) Ur Barbiturates Screen Not Detected (Not Detect) Ur Phencyclidine Scrn Not Detected (Not Detect) Ur Amphetamines Screen Not Detected (Not Detect) U Benzodiazepines Scrn Not Detected (Not Detect) Urine Cocaine Screen Not Detected (Not Detect) U Marijuana (THC) Screen Not Detected (Not Detect) Ethyl Alcohol < 10 mg/dL Independent Interpretation I performed an independent interpretation of an: CT Scan (Abdomen pelvis:Mild left hydronephrosis and hydro ureter with a 2 mm obstructing stone in the ureterovesicular junction. Additional punctate nonobstructing stones within the left kidney. Right kidney nonobstructing stones measuring up to 5 mm.) Radiology Impression Discussion of test interpretation with radiology: I have reviewed the radiologist's reading. Medications Administered Discontinued Medications Generic Name Dose Route Start Last Admin Trade Name Freq PRN Reason Stop Dose Admin Sodium Chloride 1,000 mls @ 999 mls/hr 10/05/24 21:59 10/05/24 23:27 Ns IV 10/05/24 22:59 Infused .Q1H1M ONE Infusion Ketorolac Tromethamine 15 mg 10/05/24 21:59 10/05/24 22:32 Ketorolac Tromethamine 15 Mg/Ml Vial IVPUSH 10/05/24 22:00 15 mg ONCE ONE Administration Morphine Sulfate 2 mg 10/05/24 22:57 10/06/24 00:10 Morphine Sulfate 2 Mg/Ml Cartridge IVPUSH 10/05/24 22:58 Not Given ONCE ONE Protocol Ondansetron HCl 4 mg 10/05/24 22:26 10/05/24 22:32 Ondansetron Hcl 4 Mg/2 Ml Vial IVPUSH 10/05/24 22:27 4 mg ONCE ONE Administration Discharge Plan Discharge Clinical Impression: Calculi, ureter, Renal colic on left side, UTI (urinary tract infection) Patient Disposition: Home, Self-Care Instructions: Urinary Tract Infection in Women (DC), Ureteral Stones (ED) Prescriptions: New cefuroxime axetil 250 mg tablet 250 mg PO BID Qty: 14 0RF No Action ondansetron HCl [Zofran] 4 mg tablet 4 mg PO Q8H 3 Days Qty: 9 0RF meclizine 25 mg tablet 25 mg PO TID PRN (Reason: dizziness) Qty: 20 0RF mhizkyivpf-gstnqwzmdfovv-tzbr 50-325-40 mg tablet 1 tab PO Q6H PRN (Reason: haeadace) Qty: 20 0RF hydrocortisone acetate [Anusol-HC] 25 mg suppository 25 mg AR BID Qty: 12 0RF prednisone 20 mg tablet 40 mg PO DAILY 5 Days Qty: 10 0RF prednisone 20 mg tablet 60 mg PO DAILY Qty: 15 0RF valacyclovir [Valtrex] 1 gram tablet 1,000 mg PO TID Qty: 20 0RF Refresh Lacri-Lube 56.8-42.5 % ointment 1 appl ophthalmic (eye) BEDTIME PRN (Reason: dry eyes) Qty: 3.5 0RF prednisone 20 mg tablet 20 mg PO DAILY 5 Days Qty: 5 0RF Referrals: Cecelia Tavares MD [Physician, Urology] Cathi Zimmerman MD [Primary Care Provider, Internal Medicine] Print Language: Persian
[2024-10-05 22:31] LABS: MANUAL DIFF FLAG NO
[2024-10-05 22:32] LABS: Hematocrit 43.4 % (37.0-47.0); Hemoglobin 14.8 g/dl (12.0-16.0); Imm Gran Abs Auto 0.04 X10*3/uL (0.00-0.03); Imm Gran Pct Auto 0.3 % (0.0-0.4); Lymphocytes Absolute Auto 3.7 X10*3/uL (1.2-4.9); Mean Corpuscular HGB Conc 34.1 g/dl (31.0-35.0); Mean Corpuscular Hemoglobin 28.2 pg (27.0-33.0); Mean Corpuscular Volume 82.7 fL (80.0-98.0); NRBC Abs Auto 0.000 X10*3/uL (0.0-0.012); NRBC Pct Auto 0.0 /100WBC (0.0-0.2); Platelet Count 304 X10*3/uL (160-400); Red Blood Count 5.25 X10*6/uL (4.20-5.50); White Blood Count 13.1 X10*3/uL (4.8-10.8)
[2024-10-05 22:40] LABS: INTERNATIONAL NORM RATIO 1.0 (0.9-1.1); Prothrombin Time 12.0 SEC (10.9-12.4)
[2024-10-05 22:53] LABS: Alanine Aminotransferase 24 U/L (0-31); Albumin Level 4.4 g/dL (3.5-5.0); Alkaline Phosphatase 105 U/L (39-117); Anion Gap 12 (12-20); Aspartate Amino Transferase 26 U/L (5-31); Blood Urea Nitrogen 10 mg/dL (9-16); Calcium 9.2 mg/dL (8.4-10.2); Carbon Dioxide 22 mmol/L (22-29); Chloride 110 mmol/L (96-108); Creatinine Clr Calc Pharmacy 105.7; D Dimer High Sensitivity < 150 NG/ML; Estimated Glomerular Filt Rate > 60; Lipase 22 U/L (8-78); Potassium 3.6 mmol/L (3.3-5.1); Sodium 140 mmol/L (135-145); Total Protein 7.3 g/dL (6.5-8.0)
[2024-10-05 22:54] LABS: Troponin-I High Sensitivity < 2.7 ng/L (<3.5-17.0)
--- NOTE | 2024-10-05 23:11 | PC.NURSE ---
Delayed note by this RN: At 22:15, patient vomited copious amounts of vomit as described by CT scan staff. Vomiting not witnessed by this RN. Patient reports feeling better after vomiting. Dr. Sanderson notified. Zofran ordered then administered (4mg IV push).
--- NOTE | 2024-10-05 23:15 | PC.NURSE ---
assumed care of patient. patient resting comfortably on stretcher. denies pain at this time. MD at bedside and updated on plan of care. IV fluids infusing
[2024-10-05 23:34] LABS: Appearance Urine Clear; Glucose Urine UA Negative (Negative); PH 6.0 (5.0-9.0); Specific Gravity - Urine 1.010 (1.005-1.025); UMIC TRIGGER UACC YES
[2024-10-05 23:44] LABS: Cannabinoid Screen Urine Not Detected (Not Detect)
[2024-10-05 23:47] LABS: UACC Culture Trigger YES
[2024-10-06 00:36] VITALS: BP 107/55; PULSE 70; RESP 16; TEMP 36.7; O2SAT 96
[2024-10-06 00:37] VITALS: BP 107/55; PULSE 70; RESP 16; TEMP 36.7; O2SAT 96
== END 2024-10-06 00:37 | disposition home or self-care (01) ==
PROVIDERS: Emergency Provider Emergency Medicine; PCP Internal Medicine
DX: N20.2 Calculus of kidney with calculus of ureter (principal); N39.0 Urinary tract infection, site not specified; R10.32 Left lower quadrant pain; R11.0 Nausea
CPT/HCPCS: 36415; 74176; 80048; 80076; 80307; 81001; 83690; 84484; 84702; 85025; 85379; 85610; 87086; 96361; 96374; 96375; 99284; J1885; J2405

== ENCOUNTER → 2024-10-05 21:59 | Outpatient (BNV) | payer OTHER, SELFPAY | PROVIDERS: Emergency Provider Emergency Medicine; PCP Internal Medicine; Visit Provider Student in an Organized Health Care Education/Training Program | DX: N20.0 Calculus of kidney (principal); N20.1 Calculus of ureter | CPT/HCPCS: 74176 ==

== ENCOUNTER 2024-10-14 22:41 | Emergency (ER) | payer OTHER, SELFPAY ==
--- NOTE | ~2024-10-14 | CT_ITS ---
CLINICAL HISTORY: worsening L flank pain, hx kidney stones CT abdomen and pelvis without contrast Comparison: CT/SR - CT ABDOMEN PELVIS WO IV CON - 10/05/24 22:06 EDT Findings: The lung bases are clear. Unremarkable gallbladder and solid organs. Small bilateral nonobstructing renal calculi. Previously visualized left distal ureteral calculus no longer visualized. No bowel obstruction, pneumoperitoneum, or pneumatosis. Pelvic contents unremarkable. Normal appendix. The bones are intact. IMPRESSION: No acute findings. This document has been electronically signed by: Lino Beck MD, PHD on 10/15/2024 00:57:36
[2024-10-14 22:42] VITALS: BP 132/89; PULSE 97; RESP 20; TEMP 36.7; O2SAT 98; BMI 35.1
[2024-10-14 23:10] VITALS: BP 147/86; PULSE 91; RESP 16; TEMP 37.1; O2SAT 99
--- NOTE | 2024-10-15 00:16 | ED.BACK ---
HPI - Back Pain/Injury General Chief Complaint: Back Pain/Injury Stated Complaint: passing kidney stones? Time Seen by Provider: 10/14/24 23:40 Source: patient Mode of arrival: ambulatory Limitations: no limitations History of Present Illness ED Provider: Dr. Nereida Wood HPI Narrative: Patient comes to the emergency room complaining of bilateral flank pain. About a week ago, she was seen here for left-sided flank pain, patient states that she was diagnosed with a 2 mm obstructing stone. In patient states that she is still having intermittent pain and now she is having pain in the right side. Patient was told that she has 5 mm stones in the kidney and believes that now they are moving. Patient concerned that they may be stuck. Patient states that her amount of urination has significantly decreased over the last week. Denies fever chills Related Data Previous Rx's ?Medication ?Instructions ?Recorded ondansetron HCl 4 mg tablet 4 mg PO Q8H 3 days #9 tabs 11/04/20 (Zofran) meclizine 25 mg tablet 25 mg PO TID PRN dizziness #20 tabs 04/16/23 prednisone 20 mg tablet 20 mg PO DAILY 5 days #5 tabs 12/02/23 zwfscyuwup-qdadbpugusjxd-yzmhxaxm 1 tab PO Q6H PRN haeadace #20 tabs 12/05/23 50 mg-325 mg-40 mg tablet hydrocortisone acetate 25 mg 25 mg TN BID #12 ea 12/05/23 rectal suppository (Anusol-HC) prednisone 20 mg tablet 40 mg (2 x 20 mg) PO DAILY 5 days 07/06/24 #10 tabs prednisone 20 mg tablet 60 mg (3 x 20 mg) PO DAILY #15 tabs 08/14/24 valacyclovir 1 gram tablet 1,000 mg PO TID #20 tabs 08/14/24 (Valtrex) white petrolatum-mineral oil 56.8 1 appl ophthalmic (eye) BEDTIME 08/14/24 %-42.5 % eye ointment (Refresh PRN dry eyes #3.5 grams Lacri-Lube) cefuroxime axetil 250 mg tablet 250 mg PO BID #14 tabs 10/06/24 ketorolac 10 mg tablet 10 mg PO Q8H PRN pain #10 tabs 10/15/24 levofloxacin 500 mg tablet 500 mg PO DAILY #9 tabs 10/15/24 Allergies Allergy/AdvReac Type Severity Reaction Status Date / Time cucumber (CUCUMBER) Allergy Unknown HIVES Verified 10/14/24 22:44 Review of Systems Review of Systems: Constitutional : No Weight loss, No Fever, No Chills, No Night Sweats, No Fatigue, No Malaise ENT/Mouth : No Hearing loss, No Ear Pain, No Nasal Congestion, No Sinus Pain, No Hoarseness, No sore throat, No Rhinorrhea, No Swallowing Difficulty Eyes: No Eye Pain, No Swelling, No Redness, No Foreign Body, No Discharge, No Vision Changes Cardiovascular : No Chest Pain, No SOB, No Dyspnea on Exertion, No Orthopnea, No Edema, No Palpitations Respiratory : No Cough, No Sputum, No Wheezing, No Smoke Exposure, No Dyspnea Gastrointestinal : No Nausea, No Vomiting, No Diarrhea, No Constipation, No abdominal Pain, No Hematochezia, No Melena Genitourinary : no irregular bleeding, No Dysuria, No Urinary Frequency, No Hematuria, No Urinary Incontinence, No Urgency, complaining of bilateral Flank Pain, complaining that she is urinating less than usual, denies strain, No Hesitancy Musculoskeletal : No joint pain, No Myalgias, No Joint Swelling Skin : No Skin Lesions, No rash Neuro : No Weakness, No Numbness, No Paresthesias, No Loss of Consciousness, No Dizziness, No Headache Psych : No Anxiety/Panic, No Depression, No SI/HI/AH/VH, No Social Issues, Heme/Lymph: No Bruising, No Bleeding,No Lymphadenopathy Endocrine : No Polyuria, No Polydipsia, No Temperature Intolerance [facility] Past Medical History Medical History Kidney stones Social History Social History Smoked in Last 30 Days: No Use of substances other than those prescribed or required for medical reasons: No Advance Directives: No Advance Directives Information Provided: No Patient : No Physical Exam Exam: Exam: Appearance: Alert. Oriented X3. No acute distress. Eyes: Pupils equal, round and reactive to light. ENT: Pharynx normal. Neck: Normal inspection. Neck supple. No lymph nodes noted. No crepitus CVS: Normal heart rate and rhythm. Pulses normal. Normal S1 and S2 Respiratory: No respiratory distress. Breath sounds normal. No Wheezing. No rales Abdomen: Soft and nontender. No rigidity. No distention. Mild CVA tenderness on both sides Skin: Skin warm and dry. Normal skin color. Normal skin turgor. Extremities: No lower extremity edema. No Lacerations. No Rash Neuro: Oriented X 3. No motor deficit. No sensory deficit. Moving all extremities. No slurred speech. CN 2 through 12 grossly intact Psych: calm, cooperative, normal affect Vital Signs: Vital Signs: Last Vital Signs Temp 98.4 F 10/15/24 00:20 Pulse 84 10/15/24 00:20 Resp 16 10/15/24 00:20 BP 122/68 10/15/24 00:20 Pulse Ox 96 10/15/24 00:20 O2 Del Method Room Air 10/15/24 00:20 BMI result Body Mass Index 35.1 Course Course Course Narrative: Patient has history of kidney stones, diagnosed with an obstructing 2 mm stone on the left side about a week ago, now having right-sided flank pain. Patient receiving IV fluids, ketorolac tamsulosin Zofran Medications Administered Discontinued Medications Generic Name Dose Route Start Last Admin Trade Name Freq PRN Reason Stop Dose Admin Sodium Chloride 1,000 mls @ 999 mls/hr 10/15/24 00:20 10/15/24 02:21 Ns IVCONT 10/15/24 01:20 Infused .Q1H1M ONE Infusion Ketorolac Tromethamine 30 mg 10/15/24 00:20 10/15/24 00:42 Ketorolac Tromethamine 30 Mg/Ml Vial IVPUSH 10/15/24 00:21 30 mg ONCE ONE Administration Ondansetron HCl 4 mg 10/15/24 00:20 10/15/24 00:42 Ondansetron Hcl 4 Mg/2 Ml Vial IVPUSH 10/15/24 00:21 4 mg ONCE ONE Administration Tamsulosin HCl 0.4 mg 10/15/24 00:21 10/15/24 00:41 Tamsulosin Hcl 0.4 Mg Capsule PO 10/15/24 00:22 0.4 mg ONCE ONE Administration Medical Decision Making Medical Decision Making [facility] Narrative: My interpretation of labs: Patient's white blood cell count remains at 13.2 and changed, no other hematology abnormalities, no abnormalities in patient's chemistry, normal creatinine, hCG negative, LFTs normal CT scan does not show any acute abnormalities, the previous 2 mm obstructing stone in the left ureter is gone The last time the patient was here, she was diagnosed with a UTI, patient is currently taking cephalosporins. Urinalysis is slightly positive for UTI. Patient is currently on cefuroxime. However, given that the patient has flank pain and just recently passed a kidney stone, we will treat as pyelonephritis. Patient's antibiotics will be switched to levofloxacin, 1st dose given p.o. in the ED Patient's blood pressure within normal limits, no fever, sepsis not suspected Differential Diagnosis Differential Diagnoses: The differential diagnosis associated with the presentation includes (Recurrent kidney stone, renal colic, pyelonephritis) Admission/Observation Consideration of admission/observation: Escalation of care including admission/observation considered (Given patient's recurrent symptoms, observation/admission was considered) Lab Data MDM Lab Attestation statement: I reviewed the patient's lab results. 10/15/24 00:21 10/15/24 00:21 Labs: Lab Results 10/15/24 10/15/24 Range/Units 00:21 02:32 WBC 13.2 H (4.8-10.8) X10*3/uL RBC 5.06 (4.20-5.50) X10*6/uL Hgb 14.2 (12.0-16.0) g/dl Hct 42.5 (37.0-47.0) % MCV 84.0 (80.0-98.0) fL MCH 28.1 (27.0-33.0) pg MCHC 33.4 (31.0-35.0) g/dl RDW 13.1 (11.0-16.0) % Plt Count 306 (160-400) X10*3/uL MPV 10.0 (9.4-12.3) fL Immature Gran % (Auto) 0.3 (0.0-0.4) % Neut % (Auto) 58.0 (45-73) % Lymph % (Auto) 33.8 (20-40) % [place] % (Auto) 6.5 (2-11) % Eos % (Auto) 0.8 (0-4) % Baso % (Auto) 0.6 (0-2) % Lymph # (Auto) 4.5 (1.2-4.9) X10*3/uL [place] # (Auto) 0.9 (0.1-1.2) X10*3/uL Eos # (Auto) 0.1 (0.0-0.4) X10*3/uL Baso # (Auto) 0.1 (0.0-0.2) X10*3/uL Abs Immat Gran (auto) 0.04 H (0.00-0.03) X10*3/uL Absolute Neuts (auto) 7.6 (2.0-8.3) x10*3/uL Absolute Nucleated RBC 0.000 (0.0-0.012) X10*3/uL Nucleated RBC % (auto) 0.0 (0.0-0.2) /100WBC Sodium 142 (135-145) mmol/L Potassium 3.9 (3.3-5.1) mmol/L Chloride 107 (96-108) mmol/L Carbon Dioxide 25 (22-29) mmol/L Anion Gap 14 (12-20) BUN 8 L (9-16) mg/dL Creatinine 0.74 (0.5-1.4) mg/dL Estim Creat Clear Calc 132.9 Estimated GFR > 60 Random Glucose 92 (60-115) mg/dL Calcium 9.2 (8.4-10.2) mg/dL Total Bilirubin 0.3 (0.0-1.0) mg/dL Direct Bilirubin 0.1 (0.0-0.5) mg/dL AST 23 (5-31) U/L ALT 25 (0-31) U/L Alkaline Phosphatase 111 (39-117) U/L Total Protein 7.4 (6.5-8.0) g/dL Albumin 4.4 (3.5-5.0) g/dL Beta HCG, Quant < 2 mIU/mL Urine Color Yellow Urine Appearance Clear Urine pH 5.5 (5.0-9.0) Ur Specific [place] 1.015 (1.005-1.025) Urine Protein Negative (Neg-Trace) mg/dL Urine Glucose (UA) Negative (Negative) mg/dL Urine Ketones Trace (Negative) mg/dL Urine Blood Negative (Negative) Urine Nitrite Negative (Negative) Ur Leukocyte Esterase Small (1+) H (Negative) Urine RBC 0-2 (0-2) /HPF Urine WBC 11-20 H (0-5) /HPF Ur Squamous Epith Cells 6-10 (0-2) /HPF Urine Bacteria 2+ (None Seen) Hyaline Casts 0-2 (0-2) /LPF Independent Interpretation I performed an independent interpretation of an: CT Scan Radiology Impression Discussion of test interpretation with radiology: I have reviewed the radiologist's reading. Radiologist Impression: The lung bases are clear. Unremarkable gallbladder and solid organs. Small bilateral nonobstructing renal calculi. Previously visualized left distal ureteral calculus no longer visualized. No bowel obstruction, pneumoperitoneum, or pneumatosis. Pelvic contents unremarkable. Normal appendix. The bones are intact. IMPRESSION: No acute findings. Critical Care Time Critical Care Time Critical Care Time: Yes Total Critical Care Time: 45 Attestation: I have personally provided critical care time. Time includes review of lab data, radiology results, discussion with consultants, and monitoring for potential decompensation. Intervention performed as documented. Discharge Plan Discharge Clinical Impression: Renal colic, Pyelonephritis Patient Disposition: Home, Self-Care Instructions: Renal Colic (ED), Lithotripsy (DC) Additional Instructions: He stopped taking your current antibiotic and take levofloxacin instead. Please follow-up with your primary care physician tomorrow. If you have any worsening or new symptoms, please return to the emergency room or call 911 Prescriptions: New levofloxacin 500 mg tablet 500 mg PO DAILY Qty: 9 0RF ketorolac 10 mg tablet 10 mg PO Q8H PRN (Reason: pain) Qty: 10 0RF Rx Instructions: Do not use this medication with other NSAIDs, only Tylenol if needed No Action ondansetron HCl [Zofran] 4 mg tablet 4 mg PO Q8H 3 Days Qty: 9 0RF meclizine 25 mg tablet 25 mg PO TID PRN (Reason: dizziness) Qty: 20 0RF sglpndgfun-ojhahrlvrlwrr-axkr 50-325-40 mg tablet 1 tab PO Q6H PRN (Reason: haeadace) Qty: 20 0RF hydrocortisone acetate [Anusol-HC] 25 mg suppository 25 mg TN BID Qty: 12 0RF prednisone 20 mg tablet 40 mg PO DAILY 5 Days Qty: 10 0RF prednisone 20 mg tablet 60 mg PO DAILY Qty: 15 0RF valacyclovir [Valtrex] 1 gram tablet 1,000 mg PO TID Qty: 20 0RF Refresh Lacri-Lube 56.8-42.5 % ointment 1 appl ophthalmic (eye) BEDTIME PRN (Reason: dry eyes) Qty: 3.5 0RF cefuroxime axetil 250 mg tablet 250 mg PO BID Qty: 14 0RF prednisone 20 mg tablet 20 mg PO DAILY 5 Days Qty: 5 0RF Print Language: Bengali
[2024-10-15 00:20] VITALS: BP 122/68; PULSE 84; RESP 16; TEMP 36.9; O2SAT 96
[2024-10-15 00:26] LABS: MANUAL DIFF FLAG NO
[2024-10-15 00:29] LABS: Hematocrit 42.5 % (37.0-47.0); Hemoglobin 14.2 g/dl (12.0-16.0); Imm Gran Abs Auto 0.04 X10*3/uL (0.00-0.03); Imm Gran Pct Auto 0.3 % (0.0-0.4); Lymphocytes Absolute Auto 4.5 X10*3/uL (1.2-4.9); Mean Corpuscular HGB Conc 33.4 g/dl (31.0-35.0); Mean Corpuscular Hemoglobin 28.1 pg (27.0-33.0); Mean Corpuscular Volume 84.0 fL (80.0-98.0); NRBC Abs Auto 0.000 X10*3/uL (0.0-0.012); NRBC Pct Auto 0.0 /100WBC (0.0-0.2); Platelet Count 306 X10*3/uL (160-400); Red Blood Count 5.06 X10*6/uL (4.20-5.50); White Blood Count 13.2 X10*3/uL (4.8-10.8)
[2024-10-15 00:52] LABS: Alanine Aminotransferase 25 U/L (0-31); Albumin Level 4.4 g/dL (3.5-5.0); Alkaline Phosphatase 111 U/L (39-117); Anion Gap 14 (12-20); Aspartate Amino Transferase 23 U/L (5-31); Blood Urea Nitrogen 8 mg/dL (9-16); Calcium 9.2 mg/dL (8.4-10.2); Carbon Dioxide 25 mmol/L (22-29); Chloride 107 mmol/L (96-108); Creatinine Clr Calc Pharmacy 132.9; Estimated Glomerular Filt Rate > 60; Potassium 3.9 mmol/L (3.3-5.1); Sodium 142 mmol/L (135-145); Total Protein 7.4 g/dL (6.5-8.0)
[2024-10-15 02:40] LABS: Appearance Urine Clear; Glucose Urine UA Negative (Negative); PH 5.5 (5.0-9.0); Specific Gravity - Urine 1.015 (1.005-1.025); UMIC TRIGGER UACC YES
[2024-10-15 03:00] LABS: UACC Culture Trigger YES
[2024-10-15 03:41] VITALS: BP 110/66; PULSE 73; RESP 16; TEMP 36.5; O2SAT 98
[2024-10-15 03:46] VITALS: BP 110/66; PULSE 73; RESP 16; TEMP 36.5; O2SAT 98
== END 2024-10-15 03:47 | disposition home or self-care (01) ==
PROVIDERS: Emergency Provider Emergency Medicine; PCP Internal Medicine
DX: N23 Unspecified renal colic (principal); N12 Tubulo-interstitial nephritis, not specified as acute or chronic; Z87.442 Personal history of urinary calculi
CPT/HCPCS: 36415; 74176; 80048; 80076; 81001; 84702; 85025; 87086; 96361; 96374; 96375; 99284; J1885; J2405

== ENCOUNTER → 2024-10-15 00:06 | Outpatient (BNV) | payer OTHER, SELFPAY | PROVIDERS: Emergency Provider Emergency Medicine; PCP Internal Medicine; Visit Provider General Practice | DX: N20.0 Calculus of kidney (principal) | CPT/HCPCS: 74176 ==

== ENCOUNTER 2024-10-16 04:00 | Emergency (ER) | payer OTHER, SELFPAY ==
[2024-10-16 04:03] VITALS: BP 143/82; PULSE 79; RESP 18; TEMP 36.8; O2SAT 98; BMI 34.5
[2024-10-16 04:15] VITALS: BP 123/73; PULSE 83; RESP 17; TEMP 37; O2SAT 98
[2024-10-16 04:38] LABS: Hematocrit 39.9 % (37.0-47.0); Hemoglobin 13.4 g/dl (12.0-16.0); Imm Gran Abs Auto 0.02 X10*3/uL (0.00-0.03); Imm Gran Pct Auto 0.2 % (0.0-0.4); Lymphocytes Absolute Auto 3.9 X10*3/uL (1.2-4.9); MANUAL DIFF FLAG NO; Mean Corpuscular HGB Conc 33.6 g/dl (31.0-35.0); Mean Corpuscular Hemoglobin 28.4 pg (27.0-33.0); Mean Corpuscular Volume 84.5 fL (80.0-98.0); NRBC Abs Auto 0.000 X10*3/uL (0.0-0.012); NRBC Pct Auto 0.0 /100WBC (0.0-0.2); Platelet Count 285 X10*3/uL (160-400); Red Blood Count 4.72 X10*6/uL (4.20-5.50); White Blood Count 11.4 X10*3/uL (4.8-10.8)
[2024-10-16 04:53] LABS: Alanine Aminotransferase 17 U/L (0-31); Albumin Level 4.1 g/dL (3.5-5.0); Alkaline Phosphatase 93 U/L (39-117); Anion Gap 15 (12-20); Aspartate Amino Transferase 20 U/L (5-31); Blood Urea Nitrogen 7 mg/dL (9-16); Calcium 9.1 mg/dL (8.4-10.2); Carbon Dioxide 22 mmol/L (22-29); Chloride 110 mmol/L (96-108); Creatinine Clr Calc Pharmacy 122.8; Estimated Glomerular Filt Rate > 60; Potassium 4.1 mmol/L (3.3-5.1); Sodium 143 mmol/L (135-145); Total Protein 6.7 g/dL (6.5-8.0)
[2024-10-16 05:54] LABS: Appearance Urine Clear; Glucose Urine UA Negative (Negative); PH 5.5 (5.0-9.0); Specific Gravity - Urine 1.015 (1.005-1.025)
[2024-10-16 07:06] VITALS: BP 108/70; PULSE 74; RESP 18; O2SAT 97
--- NOTE | 2024-10-16 07:17 | ED_ITS ---
HPI - General Adult General Chief complaint: General Medical Stated complaint: severe back pain Time Seen by Provider: 10/16/24 07:06 Source: patient Mode of arrival: ambulatory Limitations: no limitations History of Present Illness ED Provider: DR. Sanderson HPI narrative: 24-year-old female come to the emergency department for evaluation of bilateral flank pain, patient was diagnosed with left-sided ureteral stone, patient returned for same pain yesterday had a CT abdomen pelvis which showed clearance and passage of the kidney stones, patient also was complaining of left ear pain and left sinus infection patient was seen yesterday at the urgent care and was prescribed levofloxacin, patient is complaining of lower back pain, no fever, no chills, no hematuria. Related Data Previous Rx's ?Medication ?Instructions ?Recorded ondansetron HCl 4 mg tablet 4 mg PO Q8H 3 days #9 tabs 11/04/20 (Zofran) meclizine 25 mg tablet 25 mg PO TID PRN dizziness # 20 tabs 04/16/23 prednisone 20 mg tablet 20 mg PO DAILY 5 days #5 tab s 12/02/23 qmxqlapjpk-bnzigjhlhhjrc-ifwbskvt 1 tab PO Q6H PRN hae adace #20 tabs 12/05/23 50 mg-325 mg-40 mg tablet hydrocortisone acetate 25 mg 25 mg NM BID #12 ea 12/04 rectal suppository (Anusol-HC) prednisone 20 mg tablet 40 mg (2 x 20 mg) PO DAILY 5 days 07/06/24 #10 tabs prednisone 20 mg tablet 60 mg (3 x 20 mg) PO DAILY # 15 tabs 08/14/24 valacyclovir 1 gram tablet 1,000 mg PO TID #20 tabs (Valtrex) white petrolatum-mineral oil 56.8 1 appl ophthalmic (e ye) BEDTIME 08/14/24 %-42.5 % eye ointment (Refresh PRN dry eyes #3.5 grams Lacri-Lube) cefuroxime axetil 250 mg tablet 250 mg PO BID #14 tabs 10/06/24 ketorolac 10 mg tablet 10 mg PO Q8H PRN pain #10 ta bs 10/15/24 levofloxacin 500 mg tablet 500 mg PO DAILY #9 tabs Allergies Allergy/AdvReac Type Severity Reaction Status Date / Time cucumber (CUCUMBER) Allergy Unknown HIVES Verified 10/16/24 04:04 Review of Systems 2 Review of Systems: All other systems are reviewed and are negative Constitutional: Reports as per HPI and Reports no additional constitutional complaints Eyes: Reports as per HPI and Reports no additional eye complaints Reports system reviewed and no additional complaints, except as documented Cardiovascular: Reports as per HPI and Reports no additional cardiovascular complaints Respiratory: Reports as per HPI and Reports no additional respiratory complaints Gastrointestinal: Reports as per HPI and Reports no additional gastrointestinal complaints Genitourinary: Reports no additional female genitourinary complaints Musculoskeletal: Reports no additional musculoskeletal complaints Skin/Breast: Reports system reviewed and no additional complaints, except as docu Psychiatric: Reports no additional psychiatric complaints Endocrine: Reports no additional endocrine complaints Hematologic/Lymphatic: Reports no additional hematologic/lymphatic complaints Allergic/Immunologic: Reports no additional allergic/immunologic complaints Reports system reviewed and no additional complaints, except as documented and Reports Abnormal speech present [facility] [place] Past Medical History Medical History Kidney stones Social History Social History Advance Directives: No Advance Directives Information Provided: Yes Do you have a plan to hurt others: No Plan Physical Exam ED Vital Signs: Vital Signs - 24 hr 10/16/24 04:03 10/16/24 04:15 10/16/24 07:06 Temperature 98.3 F 98.6 F Pulse Rate 79 83 74 Respiratory Rate 18 17 18 Blood Pressure 143/82 H 123/73 108/70 Pulse Oximetry 98 98 97 Oxygen Delivery Method Room Air Room Air Room Air 10/16/24 08:20 Temperature Pulse Rate 77 Respiratory Rate 16 Blood Pressure 116/78 Pulse Oximetry 96 Oxygen Delivery Method Room Air BMI result Body Mass Index 34.5 Vital signs have been reviewed and appear to be correct. Blood pressure elevated. Heart rate normal. Respiratory rate normal. Temperature normal. Oxygen saturation normal. Appearance: Alert. Oriented X3. No acute distress. Head: Normal external exam. Normocephalic. Atraumatic. No Keane signs noted. No raccoon eyes noted Eyes: PERRLA. EOMI. Conjunctiva and sclera normal. Eyelids normal. ENT: TM's Normal. Pharynx normal. Uvula midline. Moist mucous membranes. No trismus noted. No drooling noted. No muffled voice noted. Neck: Normal inspection. Neck supple. FROM. No adenopathy. Thyroid Normal. No meningeal signs. No neck mass noted. CVS: Normal heart rate and rhythm. Heart sound normal. No murmurs noted. Pulses normal throughout. Respiratory: No respiratory distress. Painless inspiration. Breath sounds normal. No wheezes/rales/rhonchi noted. Chest nontender. No accessory muscle usage noted or decreased air movement noted. Abdomen: Soft and nontender. Bowel sounds normal in all 4 quadrants. No distention noted. No organomegaly noted. No visible injury noted. Back: No CVA tenderness. Full range of motion noted. Skin: Skin warm and dry. Normal skin color. Normal skin turgor. No rashes/lesions/lacerations noted. Extremities: No lower extremity edema. Extremities exhibit normal range of motion. Extremities nontender. Neuro: Oriented X 3. Cranial nerve exam: II-XII are grossly intact No motor deficit. No sensory deficit. Reflexes normal. Course Reevaluation(s) Reevaluation #1: Resolved passing kidney stones, patient was started levofloxacin for left ear infection and possible sinus infection at the urgent care. Urine is unremarkable, patient can be discharged home. Time: 08:33 Medical Decision Making Differential Diagnosis Differential Diagnoses: The differential diagnosis associated with the presentation includes (Pyelonephritis, kidney stone, , electrolyte derangement, severe anemia.) Admission/Observation Consideration of admission/observation: Escalation of care including admission/observation considered Lab Data MDM Lab Attestation statement: I reviewed the patient's lab results. 10/16/24 04:32 10/16/24 04:32 Labs: Lab Results 10/16/24 10/16/24 Range/Units 04:32 05:44 WBC 11.4 H (4.8-10.8) X10*3/uL RBC 4.72 (4.20-5.50) X10*6/uL Hgb 13.4 (12.0-16.0) g/dl Hct 39.9 (37.0-47.0) % MCV 84.5 (80.0-98.0) fL MCH 28.4 (27.0-33.0) pg MCHC 33.6 (31.0-35.0) g/dl RDW 13.2 (11.0-16.0) % Plt Count 285 (160-400) X10*3/uL MPV 9.9 (9.4-12.3) fL Immature Gran % (Auto) 0.2 (0.0-0.4) % Neut % (Auto) 58.3 (45-73) % Lymph % (Auto) 34.2 (20-40) % [place] % (Auto) 6.5 (2-11) % Eos % (Auto) 0.4 (0-4) % Baso % (Auto) 0.4 (0-2) % Lymph # (Auto) 3.9 (1.2-4.9) X10*3/uL [place] # (Auto) 0.7 (0.1-1.2) X10*3/uL Eos # (Auto) 0.0 (0.0-0.4) X10*3/uL Baso # (Auto) 0.1 (0.0-0.2) X10*3/uL Abs Immat Gran (auto) 0.02 (0.00-0.03) X10*3/uL Absolute Neuts (auto) 6.7 (2.0-8.3) x10*3/uL Absolute Nucleated RBC 0.000 (0.0-0.012) X10*3/uL Nucleated RBC % (auto) 0.0 (0.0-0.2) /100WBC Sodium 143 (135-145) mmol/L Potassium 4.1 (3.3-5.1) mmol/L Chloride 110 H (96-108) mmol/L Carbon Dioxide 22 (22-29) mmol/L Anion Gap 15 (12-20) BUN 7 L (9-16) mg/dL Creatinine 0.80 (0.5-1.4) mg/dL Estim Creat Clear Calc 122.8 Estimated GFR > 60 Random Glucose 93 (60-115) mg/dL Calcium 9.1 (8.4-10.2) mg/dL Total Bilirubin 0.3 (0.0-1.0) mg/dL AST 20 (5-31) U/L ALT 17 (0-31) U/L Alkaline Phosphatase 93 (39-117) U/L Total Protein 6.7 (6.5-8.0) g/dL Albumin 4.1 (3.5-5.0) g/dL Urine Color Yellow Urine Appearance Clear Urine pH 5.5 (5.0-9.0) Ur Specific [place] 1.015 (1.005-1.025) Urine Protein Negative (Neg-Trace) mg/dL Urine Glucose (UA) Negative (Negative) mg/dL Urine Ketones Trace (Negative) mg/dL Urine Blood Negative (Negative) Urine Nitrite Negative (Negative) Ur Leukocyte Esterase Negative (Negative) Urine RBC 0-2 (0-2) /HPF Urine WBC 0-5 (0-5) /HPF Ur Squamous Epith Cells 0-2 (0-2) /HPF Urine Bacteria None Seen (None Seen) Hyaline Casts 0-2 (0-2) /LPF Independent Interpretation I performed an independent interpretation of an: CT Scan (Abdomen pelvis: No acute findings.) Radiology Impression Discussion of test interpretation with radiology: I have reviewed the radiologist's reading. Discharge Plan Discharge Clinical Impression: Renal colic, Back pain Patient Disposition: Home, Self-Care Instructions: Acute Low Back Pain (ED) Prescriptions: No Action ondansetron HCl [Zofran] 4 mg tablet 4 mg PO Q8H 3 Days Qty: 9 0RF meclizine 25 mg tablet 25 mg PO TID PRN (Reason: dizziness) Qty: 20 0RF gajtoodjai-wsyrlbafivjhp-xjyt 50-325-40 mg tablet 1 tab PO Q6H PRN (Reason: haeadace) Qty: 20 0RF hydrocortisone acetate [Anusol-HC] 25 mg suppository 25 mg NM BID Qty: 12 0RF prednisone 20 mg tablet 40 mg PO DAILY 5 Days Qty: 10 0RF prednisone 20 mg tablet 60 mg PO DAILY Qty: 15 0RF valacyclovir [Valtrex] 1 gram tablet 1,000 mg PO TID Qty: 20 0RF Refresh Lacri-Lube 56.8-42.5 % ointment 1 appl ophthalmic (eye) BEDTIME PRN (Reason: dry eyes) Qty: 3.5 0RF cefuroxime axetil 250 mg tablet 250 mg PO BID Qty: 14 0RF levofloxacin 500 mg tablet 500 mg PO DAILY Qty: 9 0RF ketorolac 10 mg tablet 10 mg PO Q8H PRN (Reason: pain) Qty: 10 0RF Rx Instructions: Do not use this medication with other NSAIDs, only Tylenol if needed prednisone 20 mg tablet 20 mg PO DAILY 5 Days Qty: 5 0RF Referrals: Cathi Zimmerman MD [Primary Care Provider, Internal Medicine] Print Language: Macedonian
--- NOTE | 2024-10-16 07:23 | PC.NURSE ---
This Rn assumed care of patient @ 0700 Patient A&O x 3 Patient c/o low back pain rated 7/10 non radiating pain, patient also nauseous no vomiting Denies urinary symptoms, urine sample sent to lab VSS Plan of care on going
[2024-10-16 08:20] VITALS: BP 116/78; PULSE 77; RESP 16; O2SAT 96
[2024-10-16 08:57] VITALS: BP 116/78; PULSE 77; RESP 16; TEMP 36.8; O2SAT 96
== END 2024-10-16 09:08 | disposition home or self-care (01) ==
PROVIDERS: Emergency Provider Emergency Medicine; PCP Internal Medicine
DX: N23 Unspecified renal colic (principal); M54.50 Low back pain, unspecified; Z79.899 Other long term (current) drug therapy
CPT/HCPCS: 36415; 80053; 81001; 85025; 99283; 99284

== ENCOUNTER 2024-10-25 08:44 | Outpatient (AMB) | payer OTHER, SELFPAY ==
--- OUTSIDE RECORDS SUMMARY | 2023-12-16 14:00 | XMS_ITS | Encounter Summary ---
Author Organization [facility] Address [address] [place] [address] Care Team Providers Care Research Home Economist Name Role Phone Cathi Zimmerman MD Primary Care Provider [phone] Encounter Details Date Type Department Care Team (Late st Contact Info) Description 12/16/2023 2:00 PM EDT Hospital Encounter TH HISTORIC ENCOUNTERS EASTERN CONVERSION ONLY Carla San PA [address] [place] [phone] Social History Tobacco Use Types Packs/Day Years Used Date Smoking Tobacco: Never Smokeless Tobacco: Never Alcohol Use Standard Drinks/Week Comments Yes 0 (1 standard drink = 0.6 oz pur e alcohol) Comments Unknown Sex and Gender Information Value [...] 12/16/2023 2:00 PM EDT HPI: Sarah Henderson??sotero Valenzuela is a 23 y.o. year old female referred to our center by Lorrie Villegas MD for evaluation and management of headache/dizziness 23 yo female with PMH , GERD , Low Vit D , low normal Vit B12 Headache: Patient returns for follow-up visit. She presented to [facility] ER on 12/03 reporting symptoms of zapping [...] 30 minutes. The majority of the actual tffw-gk-eave visit was spent counseling the patient with respect to the current neurological picture. Carla San PA-C documented in this encounter Plan of Treatment Upcoming Encounters Date Type Department Care Team (Late st Contact Info) Description 12/18/2024 8:20 AM EDT Office Visit Gastroenterology - [place] 175 [facility] 175 [facility] [address] [place] [address] Jayashree Luther NP [address] [place] [address] 02/12/2025 3:00 PM EST Office Visit [facility] [place] 175 [facility] [address] [place] [address] Marisol Damian MD [address] [place] [address] 02/13/2025 2:00 PM EST Office Visit Adult Medicine [address] [phone] Cathi Zimmerman MD [address] [place] [address] documented as of this encounter Visit Diagnoses Not on filedocumented in this encounter Care Teams Research Home Economist Relationship Specialty Start Date End Date Cathi Zimmerman MD [address] [place] [phone] PCP - General Internal Medicine 05/06/23 documented as of this encounter
--- NOTE | 2024-10-25 08:43 | A.OFFVIS_ITS ---
Intake Visit Reasons: Kidney stones Intake Note: New Patient is present for kidney stones Urology Rx:none Blood Thinners:none Imaging completed: CT 10/05/2024 Tip Inserter Required: No Accompanied by: Self / Same As Patient Allergies cucumber (CUCUMBER) Allergy (Unknown, Verified 10/25/24 08:44) HIVES HPI Comments Details: Sarah is a pleasant female. She is a patient of Dr. Zimmerman. She is seen for the following urologic conditions - nephrolithiasis Initial office visit Recurrent stone former Nephrolithiasis She presents for - initial evaluation for nephrolithiasis, Initial presentation through emergency room [place] 10/16 - positive family history - recurrent stone presentation starting age 19 Presenting symptoms included right flank pain with associated nausea Imaging - 10/16 distal right ureteric UVJ stone 2 mm, renal stone 5 mm Laboratory investigations - 10/16 calcium 9.1 Stone composition - unknown 24 hour urine evaluation - none on file Interventions - none Current therapeutic plan - surveillance imaging - encourage lemon fluid and 2.5 L per day water - complete stone labs, [facility], imaging follow-up [facility] Medical History Kidney stones Review of Systems Const Denies chills and Denies fever(s) Card Reports no additional complaints and Denies syncope Resp Denies cough GI Denies abdominal pain and Denies heartburn Reports as per HPI and Denies change in libido Neuro Denies syncope Psych Denies change in libido Endo Denies change in libido Physical Exam Const General: cooperative, healthy appearing, comfortable and no acute distress Orientation/consciousness: patient oriented x3 HEENT Face and sinus: Yes normal facial exam Mouth: moist mucous membranes Neck Neck: Yes normal visual inspection, Yes full ROM and Yes trachea midline Chest Chest palpation & inspection: normal inspection of the chest Resp Effort & Inspection: normal respiratory effort, able to speak in complete sentences and no respiratory distress GI Inspection: Yes normal to inspection Back/Spine/Pelvis Cervical Spine: normal cervical lordosis Thoracic/Lumbar Spine: thoracic and lumbar spine normal to inspection Skin General skin exam: no rashes or lesions noted Neuro General: patient oriented x3, gait normal, tone normal and moves all extremities Extrem General: Yes normal to inspection and Yes capillary refill normal Assessment & Plan Assessment & Plan (1) Kidney stones: Code(s): N20.0 - Calculus of kidney Category: Medical Plan Stone evaluation Orders: Orders Phosphorus Today N20.0 - Calculus of kidney Calcium Today N20.0 - Calculus of kidney Parathyroid Hormone Intact Today N20.0 - Calculus of kidney URORISK Today N20.0 - Calculus of kidney Magnesium Today N20.0 - Calculus of kidney Uric Acid Today N20.0 - Calculus of kidney Vitamin D 25-OH Total Today N20.0 - Calculus of kidney US renal BI 6 Months N20.0 - Calculus of kidney Medications: Discontinued ondansetron HCl (Zofran) Discontinued Reason: Patient no longer taking 4 mg PO Q8H 3 days 9 tabs 0RF prednisone Discontinued Reason: Patient no longer taking 20 mg PO DAILY 5 days 5 tabs 0RF prednisone Discontinued Reason: Patient no longer taking 60 mg (3 x 20 mg) PO DAILY 15 tabs 0RF white petrolatum-mineral oil 56.8-42.5 % (Refresh Lacri-Lube) Discontinued Reason: Patient no longer taking 1 appl ophthalmic (eye) BEDTIME PRN 3.5 grams 0RF dry eyes levofloxacin Discontinued Reason: Patient no longer taking 500 mg PO DAILY 9 tabs 0RF meclizine Discontinued Reason: Patient no longer taking 25 mg PO TID PRN 20 tabs 0RF dizziness ocxruhidng-xdpbussupjvdn-ddwl 50-325-40 mg Discontinued Reason: Patient no longer taking 1 tab PO Q6H PRN 20 tabs 0RF haeadace hydrocortisone acetate (Anusol-HC) Discontinued Reason: Patient no longer taking 25 mg MI BID 12 ea 0RF prednisone Discontinued Reason: Patient no longer taking 40 mg (2 x 20 mg) PO DAILY 5 days 10 tabs 0RF valacyclovir (Valtrex) Discontinued Reason: Patient no longer taking 1,000 mg PO TID 20 tabs 0RF cefuroxime axetil Discontinued Reason: Patient Completed Course 250 mg PO BID 14 tabs 0RF ketorolac Do not use this medication with other NSAIDs, only Tylenol if needed Discontinued Reason: Patient no longer taking 10 mg PO Q8H PRN 10 tabs 0RF pain Patient Instructions: This note is constructed using voice recognition software. 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 Imaging studies, laboratory and physical exam results were discussed and reviewed in detail. No major barriers to patient understanding were identified. An opportunity to ask questions regarding the treatment plan was provided. All questions were answered. The patient expressed understanding and agreement with the above treatment plan. The patient is aware they should contact our office by phone for worsening of their current condition or the appearance of new urologic symptoms. Compliance is encouraged with any medications and followup testing that is ordered. It is a privilege to participate in the urologic care of your patient. If you have any questions or concerns regarding treatment for the above conditions, or other urologic issues, please do not hesitate to contact me. The office telephone contact is [phone]. Sincerely, Dr Clifton Chong MD, [facility] - Urology Compassionate Specialist Care for the Genitourinary System Coding Level of Care Code New Pt Level 4 (63438) Diagnoses Kidney stones N20.0
--- OUTSIDE RECORDS SUMMARY | 2024-10-25 09:16 | XMS_ITS | Clinical Summary ---
Author Organization [facility] Address [address] [place] [phone] Phone Care Team Providers Care Trouble Tracer Name Role Phone Jennifer Weir NP Primary Care Provider Unavailabl e Allergies Active Allergy Reactions Criticality Noted Date Comments [place] Extract Hives 10/07/2018 Medications Etonogestrel (NEXPLANON SC) Inject under the skin. 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: pt defer STI serology labs for electric golf cart repairer Mood swings 09/02/2020 Assessment & Plan (09/05/2020 6:28 AM EDT): In and out of therapy; depression pt says maybe I was told maybe I have Bipolar too warm hand off Rimma Kwok PHQ-9 score 16 Gastroesophageal reflux disease without esophagi tis 02/24/2019 Overview (02/24/2019): Seen by [facility] adult GI Pantoprazole (Protonix) Assessment & Plan (09/02/2020 4:19 PM EDT): No follow since covid 19; off PPI needs to see Adult GI and likely would need an 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 and no better when she was on it 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 Procedure Name Priority Date/Time Associated Diagnosis Comments CHLAMYDIA AND GONORRHEA, AMPLIFIED Routine 09/02/2020 3:16 PM EDT Screening examination for bacterial and spirochetal disease from Last 3 Months or Most Recently Relevant to Health Maintenance Results * Due to [place] [employer] law, this organization might not be sharing sensitive test results. * Chlamydia and Gonorrhoea, Amplified (09/02/2020 3:16 PM EDT) Chlamydia Trachomatis, DNA Probe NEGATIVE (NEG) [facility] Comment: No Chlamydia Trachomatis RNA detected in this patient's sample (REFERENCE RANGE/NORMAL VALUE: NOT DETECTED) Note: This test uses apprentice machinist outside- mediated amplification method to detect rRNA from C. Trachomatis URINE GC AMP PROBE NEGATIVE (NEG) [facility] Comment: No Neisseria Gonorrhoeae RNA detected in this patient's sample (REFERENCE RANGE/NORMAL VALUE: NOT DETECTED) NOTE: This test uses apprentice machinist outside-mediated amplification method to detect rRNA from N.Gonorrhoeae. [...] without risk of sexual abuse. Consult the [facility] if needed. Contact phone number . Therapeutic failure or success cannot be determined with the Aptima Combo2 assay since nucleic acid may persist following appropriate antimicrobial therapy. The Centers for Disease Control and Prevention (CDC) recommends confirmatory retesting using culture or a different nucleic acid amplification test when positive results occur, if indicated. Testing performed or reported by [facility], a Service of [facility], [address] [place] [address] Wilmer Nino MD, Assembly Adjuster Urine 09/02/2020 3:16 PM EDT 09/02/2020 10:16 PM EDT us Jennifer Weir NP LAB MICROBIOLOGY - GENERAL ORDER LEBRON Final Result [facility] from Last 3 Months or Most Recently Relevant to Health [place] [id number] [facility] Care Teams Trouble Tracer Relationship Specialty Start Date End Date Jennifer Weir NP PCP - General Pediatrics 11/15/20
--- OUTSIDE RECORDS SUMMARY | 2024-10-25 09:16 | XMS_ITS | Encounter Summary ---
Author Organization [facility] Address [address] [place] [phone] Phone Care Team Providers Care Shipping Weigher Name Role Phone Jennifer Weir NP Primary Care Provider Unavailabl e Encounter Details Date Type Department Care Team (Late st Contact Info) Description 10/08/2016 Conversion Encounter [facility] - [address] [address] Social History Tobacco Use Types Packs/Day Years [...] on filedocumented in this encounter Care Teams Shipping Weigher Relationship Specialty Start Date End Date Jennifer Weir NP PCP - General Pediatrics 11/15/20 documented as of this encounter
--- OUTSIDE RECORDS SUMMARY | 2024-10-25 09:16 | XMS_ITS | Clinical Summary ---
Author Organization 175 [facility] Address [address] [place] [address] Phone Care Team Providers Care Application Manager Name Role Phone Cathi Zimmerman MD Primary Care Provider [phone] Allergies Active Allergy Reactions Criticality Noted Date Comments [place] 05/04/2023 Medications ibuprofen (ADVIL,MOTRIN) 800 mg tablet Take 1 tablet (800 mg total) by mouth every 6 (six) hours if needed for mild pain. Active LORazepam (Ativan) 0.5 mg tablet 1 po 1 hour prior to MRI, may repeat 1 at time of MRI if needed 30 tablet 08/23/2024 Active cholecalciferol (VITAMIN D-3) 1,250 mcg (50,000 unit) capsule Take 1 capsule (50,000 Units total) by mouth 1 (one) time per week. 12 capsule 09/12/2024 Active levoFLOXacin (LEVAQUIN) 250 mg tablet Take by mouth. Active Active Problems Problem Noted Date Diagnosed Date Severe obesity (BMI 35.0-35. 9 with comorbidity) (CMS/HCC V24, CMS/[facility] V28) 01/07/2024 Kidney stones 05/17/2023 GERD (gastroesophageal reflux disease) Migraine 05/04/2023 Depression 09/30/2022 Encounters Date Type Department Care Team Description 10/19/2024 11:30 AM EDT Office Visit [facility] [address] [facility] [address] [place] [address] Carla San, PA Chronic migraine with aura without status migrainosus, not intractable (Primary Dx) 09/11/2024 10:30 AM EDT Office Visit Adult Medicine [address] [phone] Frandy Bhakta PA Gastroesophageal reflux disease, unspecified whether esophagitis present (Primary Dx); Vitamin D deficiency 08/24/2024 3:03 PM EDT - 08/24/2024 11:59 PM EDT Hospital Encounter [facility] MRI [address] [place] [address] Chronic migraine with aura without status migrainosus, not intractable; Double vision Discharge Disposition: Home or Self Care 08/23/2024 1:00 PM EDT Office Visit [facility] [address] [phone] Carla San PA Sinusitis, unspecified chronicity, unspecified location (Primary Dx) 08/14/2024 Telephone [facility] [address] [phone] Carla San PA 08/11/2024 3:00 PM EDT Office Visit [facility] [address] [phone] Carla San PA Chronic migraine with aura without status migrainosus, not intractable (Primary Dx); Double vision from Last 3 Months Immunizations Name Administration [...] Sign Reading Time Taken Comments Blood Pressure 115/80 10/19/2024 11:31 AM EDT Pulse 98 10/19/2024 11:31 AM EDT Temperature 36 C (96.8 F) 10/19/2024 11:31 AM EDT Respiratory Rate 12 09/11/2024 10:26 AM EDT Oxygen Saturation 96% 10/19/2024 11:31 AM EDT Inhaled Oxygen Concentration - - Weight 96.4 kg (212 lb 8 oz) 09/11/2024 10:26 AM EDT Height 166.4 cm (5' 5.5 ) 09/11/2024 10:26 AM ED T Body Mass Index 34.82 09/11/2024 10:26 AM EDT Plan of Treatment Upcoming Encounters Date Type Department Care Team (Late st Contact Info) Description 12/18/2024 8:20 AM EDT Office Visit Gastroenterology [facility] 175 [facility] [address] [facility] [address] [place] [phone] Jayashree Luther NP [address] [place] [address] 02/12/2025 3:00 PM EST Office Visit [facility] 175 [facility] [address] [place] [phone] Marisol Damian MD [address] [place] [address] 02/13/2025 2:00 PM EST Office Visit Adult Medicine [address] [phone] Cathi Zimmerman MD [address] [place] [address] Health Maintenance Due Date Last Done Comments Cervical Cancer Screening: Pap Smear 02/07/2020 DTaP,Tdap,and Td Vaccines (7 - Td or Tdap) 10/24/2020 10/24/2010, 05/16/2003, 09/15/2000, Additional history exists HIV Screening 03/24/2023 Hepatitis C Screening 03/24/2023 Social Influencers of Health Screening 03/24/2023 Depression Screening 02/23/2024 COVID-19 Vaccine ( season) 2024 Influenza Vaccine (#1) 2024 9, 11/05/2016, 11/28/2015, Additional history exists Cholesterol Screening (Lipid Panel) 11/02/2028 11/03/2023, 11/03/2023 Hepatitis B Vaccines Completed 01/26/2000, 1999, 1999 HIB Vaccines Completed 05/27/2000, 07/24, 1999, Additional history exists Pneumococcal Vaccine: Pediatrics (0 to 5 Years) and At-Risk Patients (6 to 49 Years) Aged Out 05/27/2000, 01/26/2000 No longer [...] Procedure Name Priority Date/Time Associated Diagnosis Comments EXTERNAL CT REPORT 10/15/[address] REPORT 10/15/[address] REPORT 10/05/[address] REPORT 10/05/2024 VITAMIN D 25 HYDROXY Routine 09/11/2024 10:59 AM EDT Vitamin D deficiency MR BRAIN WO AND W CONTRAST Routine 08/24/2024 4:21 PM EDT Chronic migraine with aura without status migrainosus, not intractable Double vision THYROID STIMULATING HORMONE WITH REFLEX TO FREE T4 AND FREE T3 Routine 08/11/2024 3:27 PM EDT Chronic migraine with aura without status migrainosus, not intractable Double vision COMPREHENSIVE METABOLIC PANEL Routine 08/11/2024 3:27 PM EDT Chronic migraine with aura without status migrainosus, not intractable Double vision BORRELIA BURGDORFERI ANTIBODY Routine 08/11/2024 3:27 PM EDT Chronic migraine with aura without status migrainosus, not intractable Double vision LIPID PANEL Routine 11/03/2023 from Last 3 Months or Most Recently Relevant to Health Maintenance Results * External CT Report (10/15/2024) Only the most recent of4 resultswithin the time period is included. Anatomical Region Laterality Modality Computed Tomogra phy Provider [facility] CT PROCEDURES Final Result * (ABNORMAL) Vitamin D 25 hydroxy (09/11/2024 10:59 AM EDT) Vit D, 25-Hydroxy 13.2(L) 30.0 - 80.0 ng/mL LAB CHEMISTRY METHOD 09/11/2024 4:58 PM EDT [facility] Blood Venous blood specimen / Unknown Venipuncture / Unknown 09/11/2024 10:59 AM EDT 09/11/2024 10:59 AM EDT Frandy LEMUS LAB BLOOD ORDERABLES Final Res ult [facility] [address] [place] [address], [place] [phone] * MR Brain wo and w Contrast (08/24/2024 4:21 PM EDT) Anatomical Region Laterality Modality Head and Neck Magnetic Resonan ce 08/24/2024 10:2 2 PM EDT Impressions 08/24/2024 10:24 PM EDT Normal study. -------- FINAL REPORT -------- Dictated By: Lauryn Clement Dictated Date: 08/24/2024 22:22 ET Assigned Physician: Lauryn Clement Reviewed and Electronically Signed By: Lauryn Clement Signed Date: 08/24/2024 22:24 ET Workstation ID: [id number] Transcribed By: Self Edit Transcribed Date: 08/24/2024 22:22 ET Narrative 08/24/2024 10:24 PM EDT HISTORY: Diplopia. TECHNIQUE: Routine MRI of the brain with and without contrast. Contrast: 20mL Dotarem COMPARISON: None available. FINDINGS: No acute territorial infarct, mass effect, or intracranial hemorrhage. No abnormal enhancement. No significant white matter disease No hydrocephalus. Visualized paranasal sinuses are clear. Mastoid air cells are clear. No calvarial fracture. Orbits unremarkable. Procedure Note Lauryn Clement MD - 08/24/2024 HISTORY: Diplopia. TECHNIQUE: Routine MRI of the brain with and without contrast. Contrast: 20mL Dotarem COMPARISON: None available. FINDINGS: No acute territorial infarct, mass effect, or intracranial hemorrhage. No abnormal enhancement. No significant white matter disease No hydrocephalus. Visualized paranasal sinuses are clear. Mastoid air cells are clear. No calvarial fracture. Orbits unremarkable. IMPRESSION: Normal study. -------- FINAL REPORT -------- Dictated By: Lauryn Clement Dictated Date: 08/24/2024 22:22 ET Assigned Physician: Lauryn Clement Reviewed and Electronically Signed By: Lauryn Clement Signed Date: 08/24/2024 22:24 ET Workstation ID: [id number] Transcribed By: Self Edit Transcribed Date: 08/24/2024 22:22 ET Carla LEMUS IMRob MRI PROCEDURES Final Res ult * Thyroid stimulating hormone with reflex to free t4 and free t3 (08/11/2024 3:27 PM EDT) TSH 1.36 0.40 - 4.00 mcIU/mL LAB CHEMISTRY METHOD 08/11/2024 7:14 PM EDT [facility] Blood Venous blood specimen / Unknown Venipuncture / Unknown 08/11/2024 3:27 PM EDT 08/11/2024 3:27 PM EDT Carla LEMUS LAB BLOOD ORDERABLES Final R esult Performing Organization Address [facility] Co de Phone Number [facility] [address] [place] [address], [place] [phone] * Borrelia burgdorferi antibody (08/11/2024 3:27 PM EDT) [facility] Lyme Ab Negative Negative LAB CHEMISTRY METHOD 08/12/2024 9:28 AM EDT [facility] Comment: No laboratory evidence of infection with B. burgdorferi (Lyme disease). Negative results may occur in patients recently infected (<=14 days) with B. burgdorferi. If recent infection is suspected, repeat testing on a new sample collected in 7- 14 days is recommended. Blood Venous blood specimen / Unknown Venipuncture / Unknown 08/11/2024 3:27 PM EDT 08/11/2024 3:27 PM EDT Carla LEMUS LAB BLOOD ORDERABLES Final R esult Performing Organization Address City/[facility]/ZIP Co de Phone Number [facility] [address] [place] [address], [place] [phone] * Comprehensive metabolic panel (08/11/2024 3:27 PM EDT) [facility] Sodium 142 133 - 145 mmol/L LAB CHEMISTRY METHOD 08/11/2024 6:45 PM EDT [facility] Potassium 4.3 3.5 - 5.5 mmol/L LAB CHEMISTRY METHOD 08/11/2024 6:45 PM EDT [facility] Chloride 109 96 - 110 mmol/L LAB CHEMISTRY METHOD 08/11/2024 6:45 PM EDT [facility] CO2 26 21 - 32 mmol/L LAB CHEMISTRY METHOD 08/11/2024 6:45 PM EDT [facility] Anion Gap 7 3 - 11 LAB CHEMISTRY METHOD 08/11/2024 6:45 PM [facility] Glucose 78 70 - 100 mg/dL LAB CHEMISTRY METHOD 08/11/2024 6:45 PM [facility] BUN 7 5 - 25 mg/dL LAB CHEMISTRY METHOD 08/11/2024 6:45 PM [facility] Creatinine 0.82 0.50 - 1.10 mg/dL LAB CHEMISTRY METHOD 08/11/2024 6:45 PM [facility] eGFR 102 >=60 mL/min/1. 73m2 LAB CHEMISTRY METHOD 08/11/2024 6:45 PM [facility] Comment:Calculation based on the Chronic Kidney Disease Epidemiology Collaboration (CKD-EPI) equation refit without adjustment for race. BUN/Creatinine Ratio 8.5 LAB CHEMISTRY METHOD 08/11/2024 6:45 PM [facility] Calcium 9.2 8.5 - 10.5 mg/dL LAB CHEMISTRY METHOD 08/11/2024 6:45 PM [facility] AST (SGOT) 20 10 - 42 unit/L LAB CHEMISTRY METHOD 08/11/2024 6:45 PM [facility] ALT (SGPT) 34 10 - 60 unit/L LAB CHEMISTRY METHOD 08/11/2024 6:45 PM [facility] Alkaline Phosphatase 119 42 - 121 unit/L LAB CHEMISTRY METHOD 08/11/2024 6:45 PM [facility] Total Protein 7.4 6.0 - 8.0 g/dL LAB CHEMISTRY METHOD 08/11/2024 6:45 PM [facility] Albumin 3.7 3.2 - 5.0 g/dL LAB CHEMISTRY METHOD 08/11/2024 6:45 PM [facility] Total Bilirubin 0.5 0.0 - 1.4 mg/dL LAB CHEMISTRY METHOD 08/11/2024 6:45 PM [facility] Blood Venous blood specimen / Unknown Venipuncture / Unknown 08/11/2024 3:27 PM EDT 08/11/2024 3:27 PM EDT Carla LEMUS LAB BLOOD ORDERABLES Final R esult [facility] [address] [place] [address], * (ABNORMAL) Lipid panel (11/03/2023) LDL/HDL Ratio 4 0 - 4 Triglycerides 90 0 - 150 mg/dL Cholesterol 176 0 - 200 mg/dL HDL 40 >=40 mg/dL LDL Cholesterol 118(A) 0 - 100 mg/dL Blood Venous blood specimen / Unknown Historical Provider LAB BLOOD ORDERABLES Sandy l Result from Last 3 Months or Most Recently Relevant to Health Maintenance Insurance [facility] [employer] Care Teams Application Manager Relationship Specialty Start Date End Date Cathi Zimmerman MD [address] [place] [address] PCP - General Internal Medicine 05/06/23
--- OUTSIDE RECORDS SUMMARY | 2024-10-25 09:16 | XMS_ITS | Clinical Summary ---
Author Organization Former[facility] Address [address] [place] [address] Care Team Providers Care Kinesiology Professor Name Role Phone Lorrie Villegas MD Primary Care Provider [phone] Medications Medication Sig Dispensed Refills Start Date [...] age to complete this topic Care Teams Kinesiology Professor Relationship Specialty Start Date End Date Lorrie Villegas MD PCP - General Internal Medicine 05/06/23
--- OUTSIDE RECORDS SUMMARY | 2024-10-25 09:16 | XMS_ITS | Encounter Summary ---
Author Organization [facility] Address [address] [place] [phone] Phone Care Team Providers Care Python Consultant Name Role Phone Jennifer Weir NP Primary Care Provider Unavailabl e Encounter Details Date Type Department Care Team (Late st Contact Info) Description 12/28/2013 Documentation [facility] Family Medicine [address] [place] [address] Family Medicine, Physician [address], [place] [address] Social History Tobacco Use Types Packs/Day Years [...] on filedocumented in this encounter Care Teams Python Consultant Relationship Specialty Start Date End Date Jennifer Weir NP PCP - General Pediatrics 11/15/20 documented as of this encounter
== END 2024-10-25 09:09 | disposition home or self-care (01) ==
LOC: HO.HUSH 08:48
PROVIDERS: PCP Internal Medicine; Visit Provider Urology
DX: Z13.9 Encounter for screening, unspecified (principal)
CPT/HCPCS: 99204

== ENCOUNTER → 2024-10-25 08:44 | Outpatient (BNVA) | payer OTHER, SELFPAY | PROVIDERS: PCP Internal Medicine; Visit Provider Urology | DX: N20.0 Calculus of kidney (principal) | CPT/HCPCS: 81003; 99202 ==

== ENCOUNTER 2024-12-06 20:28 | Emergency (ER) | payer OTHER, SELFPAY ==
--- OUTSIDE RECORDS SUMMARY | 2020-10-08 07:30 | XMS_ITS | Continuity of Care Document ---
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 Name Role Phone Ting Savage Unavailable Unavailable Procedures Procedure Date Offic/outpt E&m Estab Low-mod 1 Services provided in an urgent care [facility] COVID-19 In House Handl/convey Specmn-offic To L 21 Offic/outpt E&m [facility] 1 Services provided in an urgent care [facility] Advance Directives Directive Yes / No Effective Date File Name No Information Encounters Encounter Description Practice Location Reason(s) For Visit Diagnoses Date Provider Providers Copied on Encounter Offic/outpt E&m Estab Low-mod [facility] [place], [address], [place], [place], [id number], [place] tel:[phone] [facility] Asymptomatic COVID evaluation (chief complaint) Contact with and (suspected) exposure to covid-19 1 Anny Maguire. [address], [address], [place], [place], [id number], [place]. tel:[phone] Offic/outpt E&m [facility] [place], [address], [place], [place], [id number], [place] tel:[phone] [facility] COVID-19 Evaluation (chief complaint) Contact with and (suspected) exposure to COVID-19 1 No Information Family History Family Member Type Diagnosis Age At Onset No Information Payers Payer name Insurance type Covered libertarian ID Authoradi sarabia(s) No Information Social History Type Description Quantity Date Captured Comments Alcohol Use Details No Caffeine Use Details Unknown Tobacco Use Status No Information Smoking Status Never smoker Sex Female Vital Signs Date / Time: Height Weight BMI Pulse Rate Blood Pressure Temperature Respiratory Rate Body Surface Area Head Circumference Head Circ. Percentile Wt./Abhinav. Percentile BMI percentile Pulse Ox Inhaled Ox 2:22 PM 63 /min 98.40 F 18 /min 98 % Chief Complaint And Reason For Visit From encounter dated '10/08/2020 11:30'. Asymptomatic COVID evaluation (chief complaint). Description: Onset of symptoms was asymptomatic. The duration is asymptomatic. Symptoms are asymptomatic. Episodes occur asymptomatic. The patient notes asymptomatic. Context: Known exposure to COVID-19 at work.She denies any presenting symptoms. Thepatient does not present with abdominal pain, anorexia, arthralgia, back pain, chills, cough, diarrhea, fatigue, fever, generalized weakness, headache, loss of smell, lymphadenopathy, myalgia, nasal congestion, nausea, runny nose, shortness of breath, sore throat, change in taste or vomiting. Denies aggravating factors. Denies relieving factors. Reason For Referral Reason For Referral No Information History Of Present Illness Encounter Date Complaint History Of Prese nt Illness Asymptomatic COVID evaluation On set of symptoms was asymptomatic. The duration is asymptomatic. Symptoms are asymptomatic. Episodes occur asymptomatic. The patient notes asymptomatic. Context: Known exposure to COVID-19 at work.She denies any presenting symptoms. The patient does not present with abdominal pain, anorexia, arthralgia, back pain, chills, cough, diarrhea, fatigue, fever, generalized weakness, headache, loss of smell, lymphadenopathy, myalgia, nasal congestion, nausea, runny nose, shortness of breath, sore throat, change in taste or vomiting. Denies aggravating factors. Denies relieving factors. COVID-19 Evaluation Onset of sym ptoms was gradually. The duration is 2 Days. Symptoms are mild-moderate. The patient notes fluctuating. Context: No known exposure to COVID-19 but lives in a community w/known transmission. The patient presents with cough and sore throat. The patient does not present with abdominal pain, anorexia, arthralgia, back pain, chills, diarrhea, fatigue, fever, generalized weakness, headache, loss of smell, lymphadenopathy, myalgia, nasal congestion, nausea, runny nose, shortness of breath, change in taste or vomiting. She denies a history of Age > 65, BMI > 40, Hypertension, Diabetes. Denies aggravating factors. Denies relieving factors. Functional Status Date Functional Assessmen t No Information Instructions Date Instruction Additional Infor katlin Stay home (UNTIL RES ULTS RECEIVED). Don't go to school, work, or public areas. And don't use public transportation.Leave your home only if you need to get medical care. But call the doctor's office first so they know you're coming, and wear a face mask when you go.Wear a face mask if you are sick and are around other people. It can help stop the spread of the virus when you cough or sneeze.Limit contact with people in your home. If possible, stay in a separate bedroom and use a separate bathroom.Avoid contact with pets and other animals. Cover your mouth and nose with a tissue when you cough or sneeze. Then throw it in the trash right away. Wash your hands often, especially after you cough or sneeze. Use soap and water, and scrub for at least 20 seconds. If soap and water aren't available, use an alcohol-based hand enterprise manager.Wait for your doctor or other health professional to tell you it's okay to leave isolation. Related to Contact with and (suspected) exposure to covid-19 REMAIN QUARANTINE UN TIL RECEIVE RESULTS Related to Contact with and (suspected) exposure to COVID-19 Assessments Type Assessment Date assessment Contact with and (suspected) exp osure to covid-19 Mental Status Date Cognitive Assessment Orientation - [place] ed to time, place, person, situation. Patient Care Teams Name Effective Dates (start - stop) Status Members No Information
--- OUTSIDE RECORDS SUMMARY | 2023-12-16 14:00 | XMS_ITS | Encounter Summary ---
Author Organization [facility] Address [address] [place] [address] Care Team Providers Care Civil Transportation Engineer Name Role Phone Cathi Zimmerman MD Primary Care Provider [phone] Encounter Details Date Type Department Care Team (Late st Contact Info) Description 12/16/2023 2:00 PM EDT Hospital Encounter TH HISTORIC ENCOUNTERS EASTERN CONVERSION ONLY Carla San PA [address] [facility] [address] [place] [address] Social History Tobacco Use Types Packs/Day Years [...] returns for follow-up visit. She presented to [facility] on 12[place]03 reporting [...] 30 minutes. The majority of the actual [id number]-mj-rcyt visit was spent counseling the patient with respect to the current neurological picture. Carla San PA-C documented in this encounter Plan of Treatment Upcoming Encounters Date Type Department Care Team (Late st Contact Info) Description 12/18/2024 8:20 AM EDT Office Visit Gastroenterology - [place] [address] [place] [phone] Jayashree Luther NP 175 [facility] [address] [place] [address] 02/12/2025 3:00 PM EST Office Visit [facility] [place] 175 [facility] [address] [place] [phone] Marisol Damian MD 175 [place] [address] 02/13/2025 2:00 PM EST Office Visit Adult Medicine [address] [phone] Cathi Zimmerman MD [address] [place] [phone] documented as of this encounter Visit Diagnoses Not on filedocumented in this encounter Care Teams Civil Transportation Engineer Relationship Specialty Start Date End Date Cathi Zimmerman MD [address] [place] [phone] PCP - General Internal Medicine 05/06/23 documented as of this encounter
[2024-12-06 20:55] VITALS: BP 147/93; PULSE 87; RESP 16; TEMP 36.6; O2SAT 97; BMI 33.6
--- NOTE | 2024-12-06 21:07 | ECG_ITS ---
Test Reason : weak/numb Blood Pressure : */* mmHG Vent. Rate : 110 BPM Atrial Rate : 110 BPM P-R Int : 140 ms QRS Dur : 70 ms QT Int : 316 ms P-R-T Axes : 50 51 -2 degrees QTcB Int : 427 ms Sinus tachycardia Nonspecific T wave abnormality Abnormal ECG When compared with ECG of 27-Jun-2024 11:36, Nonspecific T wave abnormality, worse in Anterior leads Referred By: Generic ED Physician Electronically Signed By: Kenneth Little
[2024-12-06 21:39] LABS: Hematocrit 45.7 % (37.0-47.0); Hemoglobin 15.0 g/dl (12.0-16.0); Imm Gran Abs Auto 0.04 X10*3/uL (0.00-0.03); Imm Gran Pct Auto 0.3 % (0.0-0.4); Lymphocytes Absolute Auto 3.7 X10*3/uL (1.2-4.9); MANUAL DIFF FLAG NO; Mean Corpuscular HGB Conc 32.8 g/dl (31.0-35.0); Mean Corpuscular Hemoglobin 28.1 pg (27.0-33.0); Mean Corpuscular Volume 85.7 fL (80.0-98.0); NRBC Abs Auto 0.000 X10*3/uL (0.0-0.012); NRBC Pct Auto 0.0 /100WBC (0.0-0.2); Platelet Count 298 X10*3/uL (160-400); Red Blood Count 5.33 X10*6/uL (4.20-5.50); White Blood Count 12.5 X10*3/uL (4.8-10.8)
[2024-12-06 21:48] LABS: INTERNATIONAL NORM RATIO 1.1 (0.9-1.1); Prothrombin Time 12.4 SEC (10.9-12.4)
[2024-12-06 21:53] LABS: Alanine Aminotransferase 16 U/L (0-31); Albumin Level 4.5 g/dL (3.5-5.0); Alkaline Phosphatase 94 U/L (39-117); Anion Gap 14 (12-20); Aspartate Amino Transferase 21 U/L (5-31); Blood Urea Nitrogen 11 mg/dL (9-16); Calcium 9.0 mg/dL (8.4-10.2); Carbon Dioxide 21 mmol/L (22-29); Chloride 110 mmol/L (96-108); Creatinine Clr Calc Pharmacy 120.0; Estimated Glomerular Filt Rate > 60; Potassium 3.8 mmol/L (3.3-5.1); Sodium 141 mmol/L (135-145); Total Protein 7.3 g/dL (6.5-8.0)
[2024-12-06 22:06] LABS: Troponin-I High Sensitivity < 2.7 ng/L (<3.5-17.0)
--- OUTSIDE RECORDS SUMMARY | 2024-12-06 23:52 | XMS_ITS | Clinical Summary ---
Author Organization [facility] Address [address] [place] [address] Care Team Providers Care Precision Farming Specialist Name Role Phone Lorrie Villegas MD Primary Care Provider [phone] Medications Medication Sig Dispensed Refills Start Date [...] age to complete this topic Care Teams Precision Farming Specialist Relationship Specialty Start Date End Date Lorrie Villegas MD PCP - General Internal Medicine 05/06/23
--- OUTSIDE RECORDS SUMMARY | 2024-12-06 23:52 | XMS_ITS | Encounter Summary ---
Author Organization [facility] Address [address] [place] [address] Care Team Providers Care Street Light Repairer Helper Name Role Phone Cathi Zimmerman MD Primary Care Provider [phone] Encounter Details Date Type Department Care Team (Late st Contact Info) Description 11/20/2024 Results Follow-Up Adult Medicine [address] [phone] Nori Pappas [place] Social History Tobacco Use Types Packs/Day Years [...] as of this encounter Plan of Treatment Upcoming Encounters Date Type Department Care Team (Late st Contact Info) Description 12/18/2024 8:20 AM EDT Office Visit Gastroenterology - [place] 175 [facility] 175 [facility] [address] [place] [phone] Jayashree Luther NP 175 [facility] [address] [place] [address] 02/12/2025 3:00 PM EST Office Visit [facility] [place] 175 [facility] [address] [place] [phone] Marisol Damian MD [address] [place] [address] 02/13/2025 2:00 PM EST Office Visit Adult Medicine [address] [phone] Cathi Zimmerman MD [address] [place] [address] documented as of this encounter Visit Diagnoses Not on filedocumented in this encounter Care Teams Street Light Repairer Helper Relationship Specialty Start Date End Date Cathi Zimmerman MD [address] [place] [address] PCP - General Internal Medicine 05/06/23 documented as of this encounter
--- OUTSIDE RECORDS SUMMARY | 2024-12-06 23:52 | XMS_ITS | Encounter Summary ---
Author Organization [facility] Address [address] [place] [phone] Phone Care Team Providers Care Tailing Hand Name Role Phone Jennifer Weir NP Primary Care Provider Unavailabl e Encounter Details Date Type Department Care Team (Late st Contact Info) Description 12/28/2013 Documentation [facility] [place] Family Medicine [address] [place] [address] Family Medicine, Physician [address] [place], [place] [phone] Social History Tobacco Use Types Packs/Day Years [...] on filedocumented in this encounter Care Teams Tailing Hand Relationship Specialty Start Date End Date Jennifer Weir NP PCP - General Pediatrics 11/15/20 documented as of this encounter
--- OUTSIDE RECORDS SUMMARY | 2024-12-06 23:52 | XMS_ITS | Data Portability ---
Author Organization [facility] Nuria Bermeo, [facility] Address [address] [place] [address] Care Team Providers Care Histology Tech Name Role Phone STEPHAN POZO Referring Provider [phone] Assessment Encounter Date Assessment Date Assessment LastModified by Organization Details LastModified Time 08/29/2024 08/29/2024 Assessment / Anni n Chronic sinusitis with recurrent acute exacerbations. Question of left polyp, elaina, or double turbinate. Chronic paranasal sinus disease noted on recent MRI (by patient report). I would like to review imaging myself, so will request CDs. We discussed options for medical therapy including use of inhaled nasal steroids, use of nasal saline sprays or irrigations, and antibiotics. She has already had several courses over the last year. History of right facial paralysis, resolved. Etiology unclear. Neurological workup is ongoing. The relationship to sinus disease is uncertain at this time. Intermittent otalgia may be related to ETD. Normal exam today. - Start Flonase/Nasacort nasal spray, 1 spray per nostril daily. - Request CD of both recent MRIs for review. - Follow up in 1 month to review imaging and assess response to treatment. - Patient may follow up sooner if symptoms worsen, or if any questions or concerns. jessee Not available 08/29/2024 14:22:25 10/05/2024 10/05/2024 24 year old female returns in follow up with mom for the sinuses. Chronic rhinosinusitis Ongoing sinus issues with alternating facial pain and nasal congestion. Previous MRI suggests sinus involvement but images unavailable for review. Minimal subjective improvement with nasal steroid therapy, though nasal mucosal edema improved on exam today. Question possible migraine component contributing to symptoms. Plan to continue flonase qd. Will also plan to evaluate the sinuses further with CT sinus, order placed today, patient advised to bring discs with imaging to follow up. No recurrence of facial paralysis. Neurology follow-up scheduled for MS workup related to facial paralysis episode. - Continue Flonase nasal spray daily - CT sinus ordered - patient to obtain disc copy and bring to follow-up visit - Follow-up in 1 month to review imaging - Follow up sooner if symptoms worsen, or if any questions or concerns. Yamileth Whitfield [facility] Patient presents with persistent sinus symptoms. MRI images not available. Report of mucosal thickening. My exam shows some improvement int he nasal mucosal edema. Still congested with hyponasal voice. Question of CRS remains, despite medical therapy. Will obtain CT sinus to been assess. Follow up in 1 month. She will bring the CD of the CT. I reviewed the POST DOCTOR[facility] FELLOW's note and agree with their findings and plan. jessee Not available 10/10/2024 20:48:59 11/20/2024 11/20/2024 24 year old female returns in follow up with mom for the sinuses. Patient with a question of chronic rhinosinusitis, with facial pressure and pain symptoms relatively unchanged from previous. Reviewed and discussed results of CT sinus today which shows relatively clear sinuses. Given clear sinuses despite ongoing symptoms, discussed facial pain and pressure likely migraine-related rather than sinus pathology. 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 Discussed trigeminal nerve involvement can cause facial pain, congestion, and runny nose as part of migraine complex rather than true sinus disease. Recommended coordination with neurology for comprehensive migraine management. In meantime will plan to continue to treat allergies with flonase daily for congestion, can add saline nasal spray as needed. Discussed can continue Zyrtec or an oral antihistamine for allergic component if present. Discussed would want to avoid unnecessary antibiotics for sinus symptoms. - Continue Flonase nasal spray daily - add nasal saline PRN - continue oral antihistamine PRN allergy symptoms. - Follow-up PRN - Follow up sooner if symptoms worsen, or if any questions or concerns. Yamileth Whitfield [facility] Patient presents with her mother to review the CT sinus. CT showing turbinate hypertrophy and minimal mucosal edema. no polyps . My exam shows normal voice. Normal respirations. Normal mood and affect. She likely has sinus migraine, so will continue to work with neurology. Chronic allergic rhinitis with option of INS and/or oral antihistamines. I reviewed the [employer] DO[facility] FELLOW's note and agree with their findings and plan jessee Not available 11/20/2024 16:03:55 Plan of Treatment Reminders Order Date Submit Date Provider Last Modified By Organization Details Last Modified Time Details Appointments None record ed. Lab None record ed. Referral None record ed. Procedures None record ed. Surgeries None record ed. Imaging None record ed. Medication Orders None record ed. Patient TargetsNo targets recorded. Patient InstructionsNo instructions recorded. Reason for Referral None Reported. Results Created Date Observation Date Name Description Value Unit Range Abnormal Flag Note LastModifiedBy Organization Detail LastModifiedTime 11/16/19 25 11/14/2024 CT, sinus es, w/o contr ast No observ ation record ed. [email or web address] Not Available 2024 13:38:54 11/23/19 25 11/13/2024 CT, sinus es, w/o contr ast No observ ation record ed. [email or web address] Not Available 2024 11:20:20 Result Notes None recorded. Procedures Surgical History Date Name Laterality Status Provider Name and Address Organization Details Recorded Time Nasal Endoscopy (Flexible) completed Ashish Brown MD [address] [place] [address], [id number], [facility] 08/29/2024 11:20:17 Imaging Results None recorded. Procedure Notes None recorded. Medical Equipment None Reported. Allergies No known drug allergies Medications Name Sig Start Date Stop Date Status Note LastModified by Organization Details LastModified Time cefuroxime axetil 250 mg tablet TAKE 1 TABLET BY MOUTH 2 TIMES A DAY 11/17 completed Not Available Not Available Not Available ondansetron HCl 4 mg tablet TAKE 1 BY MOUTH EVERY DAY NEEDED FOR NAUSEA active Not Available Not Available No t Available ketorolac 10 mg tablet PLEASE SEE ATTACHED FOR DETAILED DIRECTION S active Not Available Not Available No t Available lorazepam 0.5 mg tablet TAKE 1 TABLET 1 HOUR PRIOR TO MRI, MAY REPEAT 1 AT TIME OF MRI IF NEEDED active Not Available Not Available No t Available levofloxaci n 500 mg tablet TAKE 1 TABLET BY MOUTH EVERY DAY 11/17 completed Not Available Not Available Not Available medroxyprog esterone 150 mg/mL intramuscul ar syringe INJECT 1 MILLILITE R INTRAMUSC ULAR EVERY 90 DAYS active Not Available Not Available No t Available cholecalcif erica (vitamin D3) 1,250 mcg (50,000 unit) capsule TAKE 1 CAPSULE (50,000 UNITS TOTAL) BY MOUTH ONCE WEEKLY active Not Available Not Available No t Available Vitals Date Recorded Body height Body mass index (BMI) Body weight Provider Name and Address Organization Details Last Updated DateTime 08/29/2024 167.64 cm 38.7 kg/m2 134767.17 g Deb Berg [place] - [facility] 08/29/2024 09:29:51 Social History Question Answer Notes LastModified by [employer] Details LastModified Time Tobacco Smoking Status Never Smoker Deb davis [place] - [facility] 08/29/2024 09:30:05 Alcohol Use Former [email or web address] Information n ot available 08/29/2024 History Of Noise Exposure No [email or web address] Information not available 08/29/2024 Sex: Unknown Functional Status Question Answer Note LastModified by [employer] Details LastModified Time Do you use any illicit or recreational drugs? No [email or web address] Information not available 08/29/2024 Do you or have you ever used any other forms of tobacco or nicotine? No [email or web address] Information not available 08/29/2024 Mental Status None recorded. Family History Nothing Reported. Medical History Condition Response Diabetes N Heart Disease N Asthma/COPD N Hypertension N Gynecological HistoryNo gynecological history recorded. Obstetrics History GPAL:G 0 P 0 0 0 0 Past Encounters Encounter ID Performer Location Encounter Start Date Encounter Closed Date Diagnosis/Indication Diagnosis SNOMED-CT Code Diagnosis ICD10 Code Diagnosis IMO Codes Diagnosis Note [id number] Ashish Brown MD [facility] [address] [place] [address] [place] [address] 08/29/2024 09:30:42 08/29/2024 18:35:47 Chronic maxillary sinusitis 48977921 J32.0 2493 Recurrent acute maxillary sinusitis 2360635555 1112949 J01.01 2427023 Polyp of l eft nasal cavity 806380605 J33.0 [id number] Ashish Brown MD [facility] [address] [place] [address] [place] [address] 10/05/2024 09:36:00 10/10/2024 21:42:21 Chronic maxillary sinusitis 36961532 J32.0 2493 Polyp of l eft nasal cavity 800238336 J33.0 2035089307 Chronic rhinitis 5737865 6 J31.0 2545 [id number] Ashish Brown MD [facility] [address] [place] [id number] 11/20/2024 11:28:03 11/20/2024 19:07:13 Chronic maxillary sinusitis 46710331 J32.0 2493 Chronic rhinitis 4924015 6 J31.0 2545 Migraine 51549268 G43.90 9 61709 Health Concerns Section Related Observation LastModified by Organization Detai ls LastModified Time None Recorded Concern Status LastModified by Organization Details LastModified Time None Recorded Advance Directives Directive None Recorded Payers Insurance Date Sequence Insurance Name Policy Number Policy Joiner Covered Member ID Joiner Member ID Guarantor Name 11/17/2024 1 [facility] - HEALTH NET PLAN (MEDICAID HMO) [facility] Sarah Valenzuela [id number] Sarah Knox 09/26/2024 1 [place] [facility] Sarah Knox [id number] Sarah Knox 09/26/2024 1 [place] [facility] Sarah Hillss [id number] aSrah Knox Notes Date Note Type Note Provider Name and Address Organization Details Recorded Time 08/29/2024 text/html 24 yo female seen for the sinuses.Accompanied during the visit. Presents for evaluation of chronic paranasal disease. History of recurrent upper respiratory, ear, and throat infections. Reports frequent phlegm with blood, and nosebleeds. Multiple courses of antibiotics and nasal sprays (Flonase) were ineffective. MRI of the brain last November for migraines and congestion showed severe chronic paranasal disease. History of right-sided facial paralysis three weeks ago, which resolved in three days. 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 Recent MRI performed to investigate facial paralysis, results pending; MS being considered. During facial paralysis episode, experienced sharp ear pain and used prescription eye drops and ointment. Reports ongoing, intermittent ear pain. Ongoing issues with migraines, though less frequent. Ashish Brown MD [address] [facility], [place], [address], [place] [facility] 08/29/2024 14:22:47 10/05/2024 text/html RTC with mom re sinuses. Ongoing sinus issues with alternating facial paintwo weeks ago right side was painful, now left side affected.Nasal congestion persists with difficulty breathing through nose Clear nasal drainage present past couple days.Using Flonase daily without significant improvement.Recurrent sinus and respiratory infections - last episode one to two months ago requiring treatment. No previous allergy historyDenies itchy, sneezy, watery eyes.Facial paralysis occurred 07/29/2023, currently followed by neurology for MS evaluationwith appointment scheduled end of month. Unable to obtain MRI from [facility] despite requests.Chest X-ray normal per recent evaluation 08/29/24:24 yo female seen for the sinuses.Accompanied during the visit. Presents for evaluation of chronic paranasal disease. History of recurrent upper respiratory, ear, and throat infections. Reports frequent phlegm with blood, and nosebleeds. Multiple courses of antibiotics and nasal sprays (Flonase) were ineffective. MRI of the brain last November for migraines and congestion showed severe chronic paranasal disease. History of right-sided facial paralysis three weeks ago, which resolved in three days. 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 Recent MRI performed to investigate facial paralysis, results pending; MS being considered. During facial paralysis episode, experienced sharp ear pain and used prescription eye drops and ointment. Reports ongoing, intermittent ear pain. Ongoing issues with migraines, though less frequent. Ashish Brown MD [address] [facility] [address], [place], [address], [facility] 10/10/2024 20:49:26 11/20/2024 text/html RTC re the sinuses with mom Reports ongoing ear pain that comes and goes with blockage since late September.Difficulty breathing through nose.Had kidney stone pass same night after last visitfollowed by infection of unknown source treated with antibiotics. Subsequently developed sinus infection and ear infectionEar infection then moved to opposite ear one week later.Currently using Flonase once daily.Denies colorful nasal drainage.Dentist suspects nighttime teeth grinding but unable to tolerate mouth guard. Neurologist diagnosed hemiplegic migrainestrialed Ubrelvy with unclear benefit due to concurrent illnesshas [facility] but requires prior [facility].Neurolog ist does not believe facial symptoms related to migraines. Recently had CT sinus done, here to review results CT SINUS11/15/24FINDINGS:T race mucosal thickening at the floor of the right maxillart sinus. Otherwise the paranasal sinuses are clear. Possible Renny cell on the left. Ostiomeatal units are patent. No significant nasal septal deviation. Mastoid air cells are clear. No expansile or destructive bone changes. IMPRESSION:No evidence of significant sinus disease. 10/05/24:RTC with mom re sinuses. Ongoing sinus issues with alternating facial paintwo weeks ago right side was painful, now left side affected.Nasal congestion persists with difficulty breathing through nose Clear nasal drainage present past couple days.Using Flonase daily without significant improvement.Recurrent sinus and respiratory infections - last episode one to two months ago requiring treatment. No previous allergy historyDenies itchy, sneezy, watery eyes.Facial paralysis occurred 07/29/2023, currently followed by neurology for MS evaluationwith appointment scheduled end of month. Unable to obtain MRI from [facility] despite requests.Chest X-ray normal per recent evaluation 08/29/24:24 yo female seen for the sinuses.Accompanied during the visit. Presents for evaluation of chronic paranasal disease. History of recurrent upper respiratory, ear, and throat infections. Reports frequent phlegm with blood, and nosebleeds. Multiple courses of antibiotics and nasal sprays (Flonase) were ineffective. MRI of the brain last November for migraines and congestion showed severe chronic paranasal disease. History of right-sided facial paralysis three weeks ago, which resolved in three days. 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 Recent MRI performed to investigate facial paralysis, results pending; MS being considered. During facial paralysis episode, experienced sharp ear pain and used prescription eye drops and ointment. Reports ongoing, intermittent ear pain. Ongoing issues with migraines, though less frequent Ashish Brown MD [address] [facility] [address] , [place], [address], [facility] 11/20/2024 16:04:07 OBGyn Episode No OBEpisode recorded.
--- OUTSIDE RECORDS SUMMARY | 2024-12-06 23:52 | XMS_ITS | Clinical Summary ---
Author Organization [facility] Address [address] [place] [phone] Phone Care Team Providers Care Supervisor Coffee Name Role Phone Jennifer Weir NP Primary Care Provider Unavailabl e Allergies Active Allergy Reactions Criticality Noted Date Comments Colrain Extract Hives 10/07/2018 Medications Etonogestrel (NEXPLANON SC) Inject under the skin. Active Active Problems Problem Noted Date Diagnosed Date History of elective 09/02/2020 Overview (09/05/2020): [facility] says she does not use protection as she is w/ her boyfriend of 5 years; advised need gate cutter: pt defer STI serology labs for gate cutter Assessment & Plan (09/05/2020 7:01 AM EDT): [facility]; says she does not use protection as she is w/ her boyfriend of 5 years; advised need gate cutter: pt defer STI serology labs for gate cutter Mood swings 09/02/2020 Assessment & Plan (09/05/2020 6:28 AM EDT): In and out of therapy; depression pt says maybe I was told maybe I have Bipolar too warm hand off Rimma Kwok PHQ-9 score 16 Gastroesophageal reflux disease without esophagi tis 02/24/2019 Overview (02/24/2019): Seen by [facility] adult GI Pantoprazole (Protonix) Assessment & Plan (09/02/2020 4:19 PM EDT): No follow since covid 19; off PPI needs to see Adult GI and likely would need an endoscopy due to hx of custodial PPI use and no better when she was on it custodial for continuity of care Immunizations Immunization Administration [...] complete this topic Procedures * Due to [place] Crowdtap law, this organization might not be sharing sensitive test results. Procedure Name Priority Date/Time Associated Diagnosis Comments CHLAMYDIA AND GONORRHEA, AMPLIFIED Routine 09/02/2020 3:16 PM EDT Screening examination for bacterial and spirochetal disease from Last 3 Months or Most Recently Relevant to Health Maintenance Results * Due to [place] Crowdt[employer] law, this organization might not be sharing sensitive test results. * Chlamydia and Gonorrhoea, Amplified (09/02/2020 3:16 PM EDT) Chlamydia Trachomatis, DNA Probe NEGATIVE (NEG) [facility] Comment: No Chlamydia Trachomatis RNA detected in this patient's sample (REFERENCE RANGE/NORMAL VALUE: NOT DETECTED) Note: This test uses neuropsychology service director- mediated amplification method to detect rRNA from C. Trachomatis URINE GC AMP PROBE NEGATIVE (NEG) [facility] Comment: No Neisseria Gonorrhoeae RNA detected in this patient's sample (REFERENCE RANGE/NORMAL VALUE: NOT DETECTED) NOTE: This test uses neuropsychology service director-mediated amplification method to detect rRNA from N.Gonorrhoeae. [...] without risk of sexual abuse. Consult the [facility] if needed. Contact phone number . Therapeutic failure or success cannot be determined with the Aptima Combo2 assay since nucleic acid may persist following appropriate antimicrobial therapy. The Centers for Disease Control and Prevention (CDC) recommends confirmatory retesting using culture or a different nucleic acid amplification test when positive results occur, if indicated. Testing performed or reported by [facility], a Service of [facility], [address] [place] [address] Wilmer Nino MD, Paper Conservator Urine 09/02/2020 3:16 PM EDT 09/02/2020 10:16 PM EDT us Jennifer Weir NP LAB MICROBIOLOGY - GENERAL ORDER LEBRON Final Result [facility] from Last 3 Months or Most Recently Relevant to Health [place] [id number] [facility] Care Teams Supervisor Coffee Relationship Specialty Start Date End Date Jennifer Weir NP PCP - General Pediatrics 11/15/20
--- OUTSIDE RECORDS SUMMARY | 2024-12-06 23:52 | XMS_ITS | Clinical Summary ---
Author Organization [facility] Address [address] [place] [address] Phone Care Team Providers Care Blood Bank Calendar Control Clerk Name Role Phone Cathi Zimmerman MD Primary Care Provider [phone] Allergies Active Allergy Reactions Criticality Noted Date Comments [place] 05/04/2023 Medications ibuprofen (ADVIL,MOTRIN) 800 mg tablet [...] (BMI 35.0-35. 9 with comorbidity) (CMS/HCC V24, CMS/[facility] V28) 01/07/2024 Kidney stones 05/17/2023 GERD (gastroesophageal reflux disease) Migraine 05/04/2023 Depression 09/30/2022 Encounters Date Type Department Care Team Description 11/20/2024 Results Follow-Up Adult Medicine [address] [address] Nori Pappas [place] 11/13/2024 2:42 PM EDT - 11/13/2024 11:59 PM EDT Hospital Encounter CT Scan [facility] [address] [place], [place] [phone] Chronic sinusitis, unspecified Discharge Disposition: Home or Self Care 10/19/2024 11:30 AM EDT Office Visit [facility] [address] [place] [phone] Carla San PA Chronic migraine with aura without status migrainosus, not intractable (Primary Dx) 09/11/2024 10:30 AM EDT Office Visit Adult Medicine [facility] [address] [place], [place] [phone] Frandy Bhakta PA Gastroesophageal reflux disease, unspecified whether esophagitis present (Primary Dx); Vitamin D deficiency from Last 3 Months Immunizations Immunization Administration Dates Next Due DTaP 5 pertussis [...] 8:20 AM EDT Office Visit [facility] - [place] [address] [facility] [address] [place] [phone] Jayashree Luther NP [address] [facility] [address] [place] [address] 02/12/2025 3:00 PM EST Office Visit [facility] [place] [address] [facility] [address] [place] [address] Marisol Damian MD [address] [place] [address] 02/13/2025 2:00 PM EST Office Visit Adult Medicine [facility] [address] [place] [address] Cathi Zimmerman MD [address] [place] [address] Health Maintenance Due Date Last Done Comments [...] Cholesterol Screening (Lipid Panel) 11/02/2028 11/03/2023, 11/03/2023 RSV Immunization Adult Patients (1 - 1-dose 75+ series) 2074 Hepatitis B Vaccines Completed 01/26/2000, 1999, 1999 [...] Procedure Name Priority Date/Time Associated Diagnosis Comments CT SINUSES WO CONTRAST Routine 11/13/2024 2:50 PM EDT Chronic sinusitis, unspecified EXTERNAL CT REPORT 10/15/[address] REPORT 10/15/[address] REPORT 10/05/[address] REPORT 10/05/2024 VITAMIN D 25 HYDROXY Routine 09/11/2024 10:59 AM EDT Vitamin D deficiency LIPID PANEL Routine 11/03/2023 from Last 3 Months or Most Recently Relevant to Health Maintenance Results * CT Sinuses wo Contrast (11/13/2024 2:50 PM EDT) Anatomical Region Laterality Modality Head and Neck Computed Tomogra phy 11/13/2024 7:29 PM EDT Impressions 11/14/2024 2:18 PM EDT No evidence of significant sinus disease. -------- FINAL REPORT -------- Dictated By: Yulissa Matthews Dictated Date: 11/13/2024 19:29 ET Assigned Physician: Yulissa Matthews Reviewed and Electronically Signed By: Yulissa Matthews Signed Date: 11/14/2024 14:18 ET Workstation ID: [id number] Transcribed By: Self Edit Transcribed Date: 11/13/2024 19:49 ET Narrative 11/14/2024 2:18 PM EDT EXAM: CT sinuses HISTORY: Chronic sinusitis. COMPARISON: None TECHNIQUE: Nonenhanced axial sinus CT multi-planar reformats. Manual dose reduction technique tailored for patient and site of imaging. TOTAL CTDIvol: 33.83 mGy FINDINGS: Trace mucosal thickening at the floor of the right maxillary sinus. Otherwise, the paranasal sinuses are clear. Possible Renny cell on the left. Ostiomeatal units are patent. No significant nasal septal deviation. Mastoid air cells are clear. No expansile or destructive bone changes. Procedure Note Yulissa Matthews MD - 11/14/2024 EXAM: CT sinuses HISTORY: Chronic sinusitis. COMPARISON: None TECHNIQUE: Nonenhanced axial sinus CT multi-planar reformats. Manual dosereduction technique tailored for patient and site of imaging. TOTALCTDIvol: 33.83 mGy FINDINGS: Trace mucosal thickening at the floor of the right maxillary sinus.Otherwise, the paranasal sinuses are clear. Possible Renny cell on theleft. Ostiomeatal units are patent. No significant nasal septal deviation.Mastoid air cells are clear. No expansile or destructive bone changes. IMPRESSION: No evidence of significant sinus disease. -------- FINAL REPORT -------- Dictated By: Yulissa Matthews Dictated Date: 11/13/2024 19:29 ET Assigned Physician: Yulissa Matthews Reviewed and Electronically Signed By: Yulissa Matthews Signed Date: 11/14/2024 14:18 ET Workstation ID: [id number] Transcribed By: Self Edit Transcribed Date: 11/13/2024 19:49 ET us Cathi Zimmerman MD IMG CT PROCEDURES Final Result * External CT Report (10/15/2024) Only the most recent of4 resultswithin the time period is included. Anatomical Region Laterality Modality Computed Tomogra phy Provider [facility] IMG CT PROCEDURES Final Result * (ABNORMAL) Vitamin D 25 hydroxy (09/11/2024 10:59 AM EDT) Vit D, 25-Hydroxy 13.2(L) 30.0 - 80.0 ng/mL LAB CHEMISTRY METHOD 09/11/2024 4:58 PM EDT [facility] Blood Venous blood specimen / Unknown Venipuncture / Unknown 09/11/2024 10:59 AM EDT 09/11/2024 10:59 AM EDT Frandy LEMUS LAB BLOOD ORDERABLES Final Res ult [facility] [address] [place] [address], [place] [phone] * (ABNORMAL) Lipid panel (11/03/2023) LDL/HDL Ratio 4 0 - 4 Triglycerides 90 0 - 150 mg/dL Cholesterol 176 0 - 200 mg/dL HDL 40 >=40 mg/dL LDL Cholesterol 118(A) 0 - 100 mg/dL Blood Venous blood specimen / Unknown Historical Provider LAB BLOOD ORDERABLES Sandy l Result from Last 3 Months or Most Recently Relevant to Health Maintenance Insurance [facility] Care Teams Blood Bank Calendar Control Clerk Relationship Specialty Start Date End Date Cathi Zimmerman MD [address] [place] [phone] PCP - General Internal Medicine 05/06/23
--- OUTSIDE RECORDS SUMMARY | 2024-12-06 23:52 | XMS_ITS | Encounter Summary ---
Author Organization [facility] Address [address] [place] [address] Phone Care Team Providers Care Industrial Sweeper Cleaner Name Role Phone Jennifer Weir NP Primary Care Provider Unavailabl e Encounter Details Date Type Department Care Team (Late st Contact Info) Description 10/08/2016 Conversion Encounter [facility] - [address] [address] Social History Tobacco Use Types Packs/Day Years [...] on filedocumented in this encounter Care Teams Industrial Sweeper Cleaner Relationship Specialty Start Date End Date Jennifer Weir NP PCP - General Pediatrics 11/15/20 documented as of this encounter
--- OUTSIDE RECORDS SUMMARY | 2024-12-06 23:53 | XMS_ITS | Patient Health Record ---
Author Organization [facility] Address [address] [facility] [address] [place] [address] Care Team Providers Care Diamond Cleaner Name Role Phone STEPHAN POZO M.D. Primary Care Provider Unavail able MAGNUS CAMACHO Unavailable [phone] Allergies Allergen (clinical drug ingredient) Drug/Non Drug Allergy documented on EMR Reaction Allergy Type Onset Date Status Non-steroidal anti-inflammatory agent (FN) NSAIDs headaches/twitch ing Drug Allergy Active Results Component Value Reference Range Notes [id number] IGP rfx No Cultur e Under 30 Reviewed date:11/02/2024 03:45:06 PM Interpretation: Performing Lab:[facility], [address], [address], [place], Phone - [phone], Director - [facility] Notes/Report: Clinical Information:VAG/CERV DEPO [id number] Dates / Results....NEVER No. of containers..01 ThinPrep Vial DIAGNOSIS: NEGATIVE FOR IN TRAEPITHELIAL LESION OR MALIGNANCY. Specimen adequacy: Satisfactory for evaluation. Endocervical and/or squamous metaplastic cells (endocervical component) are present. Clinician provided ICD10: Z01.419 Z11.51 Performed by: Casper Guido , Carrot Tier (ASCP) . . Note: The Pap smear is a screening test designed to aid in the detection of premalignant and malignant conditions of the uterine cervix. It is not a diagnostic procedure and should not be used as the sole means of detecting cervical cancer. Both false-positive and false-negative reports do occur. . Test Methodology: This liquid based ThinPrep(R) pap test was screened with the use of an image guided system. . The HPV DNA reflex criteria were not met with this specimen result therefore, no HPV testing was performed. . PDF Report Reviewed date:11/02/2024 03:44:47 PM Interpretation: Performing Lab:[facility], [address], [address], [place], Phone - [phone], [facility] Notes/Report: Clinical Information:VAG/CERV DEPO [id number] Dates / Results....NEVER No. of containers..01 ThinPrep Vial Reason For Referral No Information Medications Medication SIG (Take, Route, Fr equency, Duration) Notes Start Date End Date Status Depo-Provera 150 MG/ML 1 milliliter Intr amuscular Every 90 days; Duration: 365 days 10/31/2024 Active Social History Tobacco Use: Social History Observation Description Date Details (start date - stop date) Never Smoker NA - NA Sexual History Question Answer Notes Had sex in the past 12 months (vaginal, oral, or anal)? Yes with Men only Use protection? No Have you ever had a Sexually transmitted disease ? Yes Chlamydia? Yes AUDIT-C (Standard) Question Answer Notes Did you have a drink containing alcohol in the p ast year? No Points 0 Interpretation Negative Tobacco Control (Standard) Question Answer Notes Tobacco use: Nonsmoker Problems Problem Type SNOMED Code ICD Code Onset Dates Problem Status W/U Status Risk Notes Problem Hemiplegic migraine (67016022) Hemiplegic migraine, not intractable, without status migrainosus (G43.409) Active confirmed Problem COVID-19 (860549369) COVID-19 (U07.1) Active confirmed Vital Signs Temperature 97.8 degrees Fahrenheit 11/16/2024 Blood pressure diastolic 80 mm Hg 11/16/2024 Height 65.5 in 11/16/2024 Blood pressure systolic 118 mm Hg 11/16/2024 Weight 210 lbs 11/16/2024 BMI 34.41 kg/m2 11/16/2024 Encounters Encounter Location Date Provider Diagnosis [facility] [employer] [facility] [employer] [address] [place] [address] 10/31/2024 MAGNUS CAMACHO Encounter for gynecological examination (general) (routine) without abnormal findings Z01.419 ; Encounter for surveillance of injectable contraceptive Z30.42 and Encounter for screening for human papillomavirus (HPV) Z11.51 [facility] [employer] [address] [place] [address] 11/16/2024 MAGNUS CAMACHO Encounter for surveillance of injectable contraceptive Z30.42 Assessments Encounter Date Diagnosis (ICD Code) Assessment Notes Treatment Notes Treatment Clinical Notes Section Notes 10/31/2024 Encounter for gynecological examination (general) (routine) without abnormal findings (ICD-10 - Z01.419) Discussed cervical cancer screening with cytology every 3 years as per ASCCP guidelines. Advised continued annual pelvic exams. Patient encouraged to increase her level of exercise. SBE technique encouraged/tau ght. Safe sexual practices and STI prevention discussed. 10/31/2024 Encounter for surveillance of injectable contraceptive (ICD-10 - Z30.42) 11/16/2024 Encounter for surveillance of injectable contraceptive (ICD-10 - Z30.42) 10/31/2024 Encounter for screening for human papillomavirus (HPV) (ICD-10 - Z11.51) Plan Of Treatment Next Appt Details Provider Name:MAGNUS Anthony, 11/05/2025 01:00:00 PM, [address] [facility], [address], [place], [address], Insurance Providers Payer Name Payer Address Payer Phone Subscriber Number Group Number Insured Name Patient Relationship to Insured Coverage Start Date Coverage End Date [facility] [address] [address] [place] [address] [id number] JULIA MARROQUIN Self - patient is the insured Medications Administered Medication Instructions Date of Administration Dosage Notes DEPO PROVERA 11/16/2024 150 mg Medical (General) History Medical History History ICD Code Hemiplegic migraine, not intractable, wi thout status migrainosus G43.409 COVID-19 U07.1
--- NOTE | 2024-12-07 00:47 | ED_ITS ---
HPI - General Adult General Chief complaint: Weakness Stated complaint: L arm/leg numbness Time Seen by Provider: 12/07/24 00:15 Source: patient Mode of arrival: ambulatory Limitations: no limitations History of Present Illness ED Provider: HPI narrative: 24-year-old woman recent diagnosis of hemiplegic migraines, complaining of left- sided numbness of the forehead as well as left arm and left leg, and she states this started around 19:30, she states she had some numbness in her right leg as well it is not as bad as the left but that is what made her consider coming to the ER. She also states that she has got history of back pain and this is an ongoing issue. It is not able to recall whether she has had right-sided sciatica. 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 Not on any medications. Has recurrent migraines. Related Data Home Medications ?Medication ?Instructions ?Recorded ?Confirmed No Known Home Meds 10/25/24 Allergies Allergy/AdvReac Type Severity Reaction Status Date / Time cucumber (CUCUMBER) Allergy Unknown HIVES Verified 12/06/24 21:00 Review of Systems 2 Constitutional: Constitutional: Reports as per HPI [facility] Past Medical History Medical History Kidney stones Social History Social History Advance Directives: No Advance Directives Information Provided: Yes Do you have a plan to hurt others: No Plan Physical Exam ED Exam Exam: General: ?Appears of stated age ? ?PERRLA, EOMI, MMM, ? Neck: Supple, no LAD ? ?CV: RRR, no obvious murmurs appreciated ? ?Resp: ?No wheezing rales rhonchi no stridor moving air well ? Abd: ?Bowel sounds are present, no tenderness no rebound no rigidity ? ?MSK: Patient is able to lift both of her arms up, she has a good strength right upper extremity left upper extremity strength 4/5 compared to right, right leg motor 5/5, left leg motor 4/5 on flexion-extension, reports numbness in the left side and slight numbness on the right side ? Skin: Warm, dry, intact, ? ?Neuro: ?Alert and oriented x3, moving upper and lower extremities symmetrically, no obvious facial asymmetry noted, cranial nerves 2-12 intact, no facial asymmetry, no sensory deficits Vital Signs: Vital Signs - 24 hr 12/06/24 20:55 Temperature 97.8 F Pulse Rate 87 Respiratory Rate 16 Blood Pressure 147/93 H Pulse Oximetry 97 Oxygen Delivery Method Room Air BMI result Body Mass Index 33.6 Medical Decision Making Medical Decision Making [facility] Narrative: 12:55 AM 12/07/2024 (Dr. Ammon Woodson): Patient is a quite I am concerned about her symptoms, she states that last time she had these symptoms she had and that lasted for 3 days, she saw her neurologist and had MRI recently that was negative for any multiple sclerosis, the only thing that brought her in was because she was having some numbness in the right side as well not as bad as in the left, she is reporting history of back issues but did not endorse sciatica, no drug use, no loss of bowel or bladder function, no fevers or chills. She is on Depo shots. I spoke to the patient regarding my differential and 1 of the things I have mentioned that because she is on Depo shots it would technically be a risk factor for cavernous venous thrombosis and we spoke about whether CT is indicated, she states she just had CTs for abdomen and pelvis due to kidney stones and she has had CTs of the brain, and she is concerned about how much radiation she has been exposed to and recently she had a brain MRI, so we had a shared decision making regarding not obtaining CAT scan at this time, I evaluated the patient and had a walk, she is quite steady on her feet and quite un-concerned about her symptoms. We decided that she is going to get in touch with her neurologist tomorrow Differential Diagnosis Differential Diagnoses: The differential diagnosis associated with the presentation includes (Cavernous venous thrombosis, stroke, MS flare, hemiplegic migraine) Admission/Observation Consideration of admission/observation: Escalation of care including admission/observation considered Lab Data [facility] Lab Attestation statement: I reviewed the patient's lab results. 12/06/24 21:27 12/06/24 21:27 Labs: Lab Results 10/15/25 Range/Units 21:27 WBC 12.5 H (4.8-10.8) X10*3/uL RBC 5.33 (4.20-5.50) X10*6/uL Hgb 15.0 (12.0-16.0) g/dl Hct 45.7 (37.0-47.0) % MCV 85.7 (80.0-98.0) fL MCH 28.1 (27.0-33.0) pg MCHC 32.8 (31.0-35.0) g/dl RDW 12.2 (11.0-16.0) % Plt Count 298 (160-400) X10*3/uL MPV 9.6 (9.4-12.3) fL Immature Gran % (Auto) 0.3 (0.0-0.4) % Neut % (Auto) 62.4 (45-73) % Lymph % (Auto) 29.6 (20-40) % [place] % (Auto) 5.7 (2-11) % Eos % (Auto) 1.4 (0-4) % Baso % (Auto) 0.6 (0-2) % Lymph # (Auto) 3.7 (1.2-4.9) X10*3/uL [place] # (Auto) 0.7 (0.1-1.2) X10*3/uL Eos # (Auto) 0.2 (0.0-0.4) X10*3/uL Baso # (Auto) 0.1 (0.0-0.2) X10*3/uL Abs Immat Gran (auto) 0.04 H (0.00-0.03) X10*3/uL Absolute Neuts (auto) 7.8 (2.0-8.3) x10*3/uL Absolute Nucleated RBC 0.000 (0.0-0.012) X10*3/uL Nucleated RBC % (auto) 0.0 (0.0-0.2) /100WBC PT 12.4 (10.9-12.4) SEC INR 1.1 (0.9-1.1) Sodium 141 (135-145) mmol/L Potassium 3.8 (3.3-5.1) mmol/L Chloride 110 H (96-108) mmol/L Carbon Dioxide 21 L (22-29) mmol/L Anion Gap 14 (12-20) BUN 11 (9-16) mg/dL Creatinine 0.83 (0.5-1.4) mg/dL Estim Creat Clear Calc 120.0 Estimated GFR > 60 Random Glucose 93 (60-115) mg/dL Calcium 9.0 (8.4-10.2) mg/dL Total Bilirubin 0.3 (0.0-1.0) mg/dL AST 21 (5-31) U/L ALT 16 (0-31) U/L Alkaline Phosphatase 94 (39-117) U/L Troponin I High Sens < 2.7 (<3.5-17.0) ng/L Total Protein 7.3 (6.5-8.0) g/dL Albumin 4.5 (3.5-5.0) g/dL Independent Interpretation I performed an independent interpretation of an: EKG (110 beats per minute otherwise normal ECG without dysrhythmia, AV aaron blocks or ST-T changes to suspect underlying ACS, my independent interpretation) External Record Review External record reviewed: Prior outpatient radiology Tests considered The following testing was considered but not selected: CT brain with and without contrast Discharge Plan Discharge Clinical Impression: Left sided numbness Patient Disposition: Home, Self-Care Additional Instructions: Your blood work, EKG, vital signs on physical exam has been fairly reassuring except the numbness and some weakness on the left part of the body and of course your right leg, we spoke about the potential workup in the emergency department, we discussed obtaining CT of the brain, however that would mean that you were going to be exposed to radiation and we had a shared decision-making regarding not obtaining CT in the emergency department today calling your neurologist tomorrow to determine whether any treatment is indicated or whether you need a repeat MRI, at any point should you change your mind you have any other concerns come back to the ER Prescriptions: No Action No Known Home Meds Print Language: Arabic
[2024-12-07 01:05] VITALS: BP 117/67; PULSE 68; RESP 18; TEMP 36.7; O2SAT 97
--- NOTE | 2024-12-07 01:25 | PC.NURSE ---
pt a&o, no sob or chest pain, pt able to speak in full sentences, pt had a steady gait, Left sided numbness resolved upon discharge, reviewed discharge instructions with pt. pt verbalized understanding, no sign of distress, neuros intact.
[2024-12-07 01:27] VITALS: BP 117/67; PULSE 68; RESP 18; TEMP 36.7; O2SAT 97
== END 2024-12-07 01:30 | disposition home or self-care (01) ==
PROVIDERS: Emergency Provider Emergency Medicine; PCP Internal Medicine
DX: R20.0 Anesthesia of skin (principal); R00.0 Tachycardia, unspecified; Z79.899 Other long term (current) drug therapy
CPT/HCPCS: 36415; 80053; 84484; 85025; 85610; 93005; 99283; 99284

== ENCOUNTER → 2024-12-06 21:07 | Outpatient (BNV) | payer OTHER, SELFPAY | PROVIDERS: Emergency Provider Emergency Medicine; PCP Internal Medicine; Visit Provider Internal Medicine Cardiovascular Disease | DX: R00.0 Tachycardia, unspecified (principal) | CPT/HCPCS: 93010 ==

== ENCOUNTER 2025-02-03 18:42 | Emergency (ER) | payer OTHER, SELFPAY ==
--- OUTSIDE RECORDS SUMMARY | 2023-12-16 13:00 | XMS_ITS | Encounter Summary ---
Author Organization [facility] [place] [address] Care Team Providers Care Sergeant At Arms Name Role Phone Cathi Zimmerman MD Primary Care Provider [phone] Encounter Details Date Type Department Care Team (Late st Contact Info) Description 12/16/2023 2:00 PM EDT Hospital Encounter TH HISTORIC ENCOUNTERS EASTERN CONVERSION ONLY Carla San PA [address] [place] [address] Social History Tobacco Use Types Packs/Day Years Used Date Smoking Tobacco: Never Smokeless Tobacco: Never Alcohol Use Standard Drinks/Week Comments Yes 0 (1 standard drink = 0.6 oz pur e alcohol) Housing Instability Answer Date Recorde d Are you worried that in the next 2 months you may not have stable housing? No 12/08/2024 Food Access & Nutrition Answer Date Rec orded Do you have access to a vari ety of food including fruits and vegetables? Yes 12/08/2024 Access to Healthcare Answer Date Record ed Within the last 3 months, ho w many times did you visit the emergency department for your medical care? 6 12/08/2024 Health Literacy Answer Date Recorded How often do you need to hav e someone help you when you read instructions, pamphlets, or other written material from your doctor or pharmacy? Sometimes 12/08/2024 Caregiver: How often do you need to have someone help you when you read instructions, pamphlets, or other written material from your doctor or pharmacy? Not on file 12/08/2024 Financial Risk Answer Date Recorded How hard is it for you to pa y for the very basics like food, housing, medical care, and air conditioning / heating? Hard 12/08/2024 Transportation Answer Date Recorded Has the lack of transportati on kept you from meetings, work, or from getting things needed for daily living? No Has the lack of transportati on kept you from medical appointments or from getting medications? No 12/08/2024 Social Isolation Answer Date Recorded How often do you feel lonely or isolated from those around you? Sometimes 12/08/2024 Food Risk Answer Date Recorded Within the past 12 months we worried whether our food would run out before we got money to buy more. Never true 12/08/2024 Within the past 12 months th e food we bought just didn't last and we didn't have money to get more. Never true 12/08/2024 Dependent Care Answer Date Recorded Do you need help finding or paying for care for your loved ones. For example, child welfare consultant or elderly care for an older adult? No 12/08/2024 Education Answer Date Recorded Do you think completing more education or training, like finishing a GED, going to college, or learning a trade, would be helpful for you? N/A 12/08/2024 Employment and Income Answer Date Recor ded During the last four weeks, have you been actively looking for work? No 12/08/2024 Living Situation Answer Date Recorded What is your living situation? Unrecognized valu e 12/08/2024 Comments Unknown Sex and Gender Information Value Date Recorded Sex Assigned at Not on file Legal Sex Female 6:18 PM EST Gender Identity Not on file Sexual Orientation Not on file documented as of this encounter Last Filed Vital Signs Vital Sign Reading Time Taken Comments Blood Pressure - - Pulse - - Temperature - - Respiratory Rate - - Oxygen Saturation - - Inhaled Oxygen Concentration - - Weight 102 kg (225 lb) 11/04/2023 2:34 PM EDT Height 165.1 cm (5' 5 ) 11/04/2023 2:34 PM EDT Body Mass Index 37.44 11/04/2023 2:34 PM EDT documented in this encounter Progress Notes * MARIAH Brown - 12/16/2023 2:00 PM EDT HPI: Sarah Henderson??sotero Nicolas is a 23 y.o. year old female referred to our center by Lorrie Villegas MD for evaluation and management of headache/dizziness 23 yo female with PMH , GERD , Low Vit D , low normal Vit B12 Headache: Patient returns for follow-up visit. She presented to [facility] ER on 12/03 reporting symptoms of zapping electricity in head, vomiting, could not walk. She states she was treated with an injection and discharged home. There have been no recurrences of similar episode. She does not feel atenolol has been effective in controlling her headaches. Also notes that she hastried Soma in the past which was not effective. States that a new medicine was prescribed for her from the ED but she has not picked this up yet does not recall the name. Last visit history reviewed: Patient presents for evaluation of headache. Symptoms began about she had migraine since childhood . Generally, the headaches last about several hours and occur continuously. The headaches do not seem to be related to any time of the day. The headaches are usually moderate, pounding, sharp and throbbing and are located in frontal , temporal , radiate occipital . The patient rates her most severe headaches a 10 on a scale from 1 to 10. Recently, the headaches have been increasing in both severity and frequency. Work attendance or other daily activities are affected by the headaches. Precipitating factors include: none which have been determined. The headaches are usually not preceded by an aura. Associated neurologic symptoms: nausea , photophobia , phonophobia , blurry vision . The patient denies numbness of extremities and speech difficulties. Home treatment has included nothing with no improvement. Other history includes: migraine headaches diagnosed in the past. Family history includes migraine headaches in mother and aunt. Around May she went to hospital patient reported experiencing headache x 2 weeks with feeling offbalance. At that time, CBC, chemistries, influenza A/B, RSV, and COVID-19 were unremarkable. ER note indicates your CT of your head reveals no significant abnormality although radiology report was not included for review. She continued having a feeling afterwards occasionally lasting for minutes Reviewing any prior neurological symptoms last year she had same feeling couldn't drive anymore , she cant explain the feeling she has been experiencing she feels she was off She is on depot shot for More recently patient had workup done which did show that she is experiencing low vitamin D and vitamin B12 and she was started on supplementation She denies any other neurological symptoms she denies any episodic blurry vision double vision tingling numbness or weakness No past medical history on file. Current Outpatient Medications Medication Sig Dispense Refill ??? amitriptyline (ELAVIL) 10 MG tablet 1 po hs x 1 week, then increase to 2 po hs 60 tablet 5 ??? atenolol (TENORMIN) tablet 50 mg Take 1 tablet (50 mg total) by mouth daily for 7 days, THEN 2 tablets (100 mg total) daily for 40 days. 87 tablet 0 No current facility-administered medications for this visit. Not on File Social history: Tobacco: No Alcohol No Drug use: No She is going to school Family history: There is no significant family history of multiple sclerosis, rheumatoid arthritis,type 1 diabetes, lupus, or other autoimmune diseases. Neurologic Exam: There were no vitals taken for this visit. MS: AOx3 CN: perrla, , V1-3 intact to LT, face symmetric, bilateral SCM/trapezius 5/5, tongue/uvula/palate midline Motor: 5/5 in all extremities Sensation: Intact to light touch, temperature, and vibration in all extremities Reflexes: 2+ in bilateral biceps and patellae, toes downgoing bilaterally Cerebellar: FNF intact bilaterally, FFM intact bilaterally, CHAD intact bilaterally, tandem gait normal, romberg negative Labs: Reviewed available labs Vitamin D 10 Vitamin B12 282 CBC/CMP within normal limits Imaging: MRI of brain 11/23/2023: Normal MRI appearance of brain. Chronic paranasal sinus disease. A small amount of layering fluid in the left maxillary antrum is nonspecific but could be secondary to acute sinusitis in appropriate clinical setting. A/P: Sarah Henderson??sotero Valenzuela is a 23 y.o. year old female referred to our center by Lorrie Villegas MD for evaluation and management of migraine headache. Atenolol has not been effective in controlling her headaches and she was instructed on how to taper. We reviewed potential alternate options for migraine prophylaxis and have decided on a trial of amitriptyline. She will start with 10 mg at bedtime for 2 weeks and then can increase to 20 mg at bedtime. We reviewed potential adverse effects andshe agrees to contact the office with any concerns. Will also enter a referral for ENT consultationto to further assess sinus abnormality noted on brain MRI. Migraine headache -Taper and discontinue atenolol and add amitriptyline 10 mg at bedtime for 1 week then increase to 20 mg at bedtime -May continue sumatriptan as needed for treatment of acute migraine, also has new abortive med prescribed by ER which she cannot recall -Referral entered for ENT consultation for further assessment of sinus abnormality noted on brain MRI Counseled on avoidance of migraine triggers, particularly sleep deprivation, missed meals, dehydration, certain foods and avoiding excessive caffeine/NSAIDs. Vitamin D/B12 deficiency: Continue supplementation -RTC in 3 months for follow up or sooner as needed The patient and I discussed the clinical picture during today's appointment. Additional time was spent prior to the actual appointment reviewing records, lab values and imaging results and preparing documentation for today's visit. There was also time spent following the in person visit documenting, arranging for further diagnostic testing and follow-up appointments. The entire time spent in thisprocess was greater than 30 minutes. The majority of the actual ckfa-[id number]-azbo visit was spent counseling the patient with respect to the current neurological picture. Carla San PA-C documented in this encounter Plan of Treatment Upcoming Encounters Date Type Department Care Team (Late st Contact Info) Description 02/12/2025 3:00 PM EST Office Visit [facility] [address] [facility] [address] [place] [address] Marisol Damian MD [address] [place] [address] 02/13/2025 2:00 PM EST Office Visit Adult Medicine [address] [phone] Cathi Zimmerman MD [address] [place] [address] documented as of this encounter Visit Diagnoses Not on filedocumented in this encounter Care Teams Sergeant At Arms Relationship Specialty Start Date End Date Cathi Zimmerman MD [address] [place] [phone] PCP - General Internal Medicine 05/06/23 documented as of this encounter
--- NOTE | ~2025-02-03 | CT_ITS ---
CLINICAL HISTORY: right sided weakness CTA HEAD WITH CONTRAST AND 3D POST PROCESSING CTA NECK WITH CONTRAST AND 3D POST PROCESSING COMPARISON: Noncontrast CT brain 02/04/2025. FINDINGS: CTA NECK: Sagittal and coronal MIP 3D reconstruction images were performed. Exam is limited due to mild patient motion artifact. There is no definite significant stenosis, occlusion, dissection, aneurysm, or vascular malformation. There is no active bleeding.Common carotid arteries, internal carotid arteries, external carotid arteries, and vertebral arteries are unremarkable. Reversal of the normal cervical lordosis is noted. Cervical spine is otherwise unremarkable. Upper lungs are unremarkable. CTA HEAD: Sagittal and coronal MIP 3D reconstruction images were performed.There is no significant stenosis, occlusion, dissection, aneurysm, or vascular malformation. There is no active bleeding.Terminal internal carotid arteries, middle cerebral arteries, anterior cerebral arteries, basilar artery, and posterior cerebral arteries are unremarkable. No evidence of dural venous sinus thrombosis. IMPRESSION: 1. Unremarkable CTA neck and CTA head. This document has been electronically signed by: Jose Mccallum M.D. on 02/04/2025 01:59:50
--- NOTE | ~2025-02-03 | CT_ITS ---
CLINICAL HISTORY: right sided weakness CT BRAIN WITHOUT CONTRAST COMPARISON: 08/14/2024. FINDINGS: There is no evidence of an acute infarct or intraparenchymal hemorrhage. There is no mass effect, midline shift, or extra-axial blood. The ventricles are normal in size without evidence of hydrocephalus. The bone windows are unremarkable. IMPRESSION: 1. No acute disease in the brain. This document has been electronically signed by: Jose Mccallum M.D. on 02/04/2025 01:02:18
[2025-02-03 19:09] VITALS: BP 143/63; PULSE 85; RESP 16; TEMP 36.3; O2SAT 97; BMI 32.7
--- NOTE | 2025-02-03 19:10 | ED_ITS ---
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 Presents today with having left-sided weakness left upper left lower weakness. Patient is from home. No fever no chills. Headache is frontal very similar to previous bouts of migraine. Tried home medication but failed. No neck pain. No fever no chills. No diaphoresis. No coughing or congestion or upper respiratory symptoms. No family history of aneurysms or intracranial bleed Related Data Home Medications ?Medication ?Instructions ?Recorded ?Confirmed No Known Home Meds 10/25/24 Allergies Allergy/AdvReac Type Severity Reaction Status Date / Time cucumber (CUCUMBER) Allergy Unknown HIVES Verified 02/03/25 19:12 Review of Systems 2 Review of Systems: Positive headache Positive left-sided weakness Yes all other systems are reviewed and are negative PMFSH Past Medical History Attestation statement: The following information was validated with the patient. Medical History Kidney stones Social History Social History Smoked in Last 30 Days: No Use of substances other than those prescribed or required for medical reasons: No Advance Directives: No Advance Directives Information Provided: No Do you have a plan to hurt others: No Plan Physical Exam 2 Exam: Exam: Appearance: Alert. Oriented X3. No acute distress. Eyes: Pupils equal, round and reactive to light. ENT: Pharynx normal. Neck: Normal inspection. Neck supple. No lymph nodes noted. No crepitus CVS: Normal heart rate and rhythm. Pulses normal. Normal S1 and S2 Respiratory: No respiratory distress. Breath sounds normal. No Wheezing. No rales Abdomen: Soft and nontender. No rigidity. No distention. good BS x4 Skin: Skin warm and dry. Normal skin color. Normal skin turgor. Extremities: No lower extremity edema. Neurovascular intact to all extremities. No Lacerations. No Rash Neuro: Oriented X 3. Significant left-sided weakness including left upper and left lower extremity. No facial droop noted. Vital Signs: Vital Signs: Last Vital Signs Temp 97.8 F 02/04/25 02:20 Pulse 85 02/04/25 02:20 Resp 20 02/04/25 02:20 BP 132/77 02/04/25 02:20 Pulse Ox 98 02/04/25 02:20 O2 Del Method Room Air 02/04/25 02:20 BMI result Body Mass Index 32.7 NIH Stroke Scale Internal: Initial- Upon Arrival Time: 01:52 Level of Consciousness: Alert Level of Consciousness Questions: Answers both questions correctly Level of Consciousness Commands: Performs both tasks correctly Best Gaze: Normal Visual: No visual loss Facial Palsy: Normal Motor Arm (Right): No drift Motor Arm (Left): Drift Motor Leg (Right): No drift Motor Leg (Left): Drift Limb Ataxia: Absent Sensory: Normal Best Language: No aphasia Dysarthia: Normal Extinction and Inattention: No abnormality Score: 2 Course Course Course Narrative: This is a RME preformed in triage by Bronwyn Gonzalez PA-C. Date: 02/03/2025, time 712 pm. Patient presents with migraine x 2 weeks. Took tylenol last night 1g. ? 24-year-old female with a history of hemiplegic migraine (migraine with stroke-like symptoms). ? Current migraine has been continuous for the past two weeks; prior episodes typically respond to acetaminophen (Tylenol) but this episode has not improved. ? Severity today 11/01. ? Last dose of Tylenol taken ?middle of last night? (max daily dose already reached). ? Unable to take NSAIDs or triptans per neurologist. ? Neurologist prescribed ubrogepant (Ubrelvy) yesterday; patient has medication but has not taken any doses yet (was unsure about concomitant use with Tylenol). ? Earlier today developed sudden sensation of extreme heat, sweating, shakiness, lightheadedness, inability to hold objects, and difficulty walking. Weakness predominantly in the left arm; patient reports that in prior episodes, all limbs have been affected simultaneously. ? Also reports sharp stomach pain and back pain around the same time; uncertain relationship to migraine episode. ? Similar hemiplegic migraine episode last month (12/07) affected all limbs simultaneously; scheduled neurology follow-up at end of this month. ? Eating and drinking adequately. Review of Systems: ? Neurologic: Persistent migraine, left arm weakness, lightheadedness. ? Constitutional: Feeling very hot, sweating, shakiness. ? Gastrointestinal: Sharp stomach pain. ? Musculoskeletal: Back pain. ? ENT/Respiratory: Denies cough, sore throat, nasal congestion. Work UP:?needs migraine cocktail, testing for COVID/FLU Will defer full ROS and PE to treating provider. Patient will continued to be monitored in the interim. Medications Administered Discontinued Medications Generic Name Dose Route Start Last Admin Trade Name Freq PRN Reason Stop Dose Admin Dexamethasone Sodium Phosphate 10 mg 02/04/25 02:02 02/04/25 02:22 Dexamethasone Sod Phosphate 10 Mg/Ml Vial IVPUSH 02/04/25 02:03 Not Given ONCE ONE Diphenhydramine HCl 25 mg 02/04/25 00:36 02/04/25 00:59 Diphenhydramine Hcl 50 Mg/Ml Vial IVPUSH 02/04/25 00:37 25 mg ONCE ONE Administration Sodium Chloride 1,000 mls @ 999 mls/hr 02/04/25 00:45 02/04/25 02:08 Ns IV 02/04/25 01:45 Infused .Q1H1M ANDREZ Infusion Iohexol 70 ml 02/04/25 01:00 02/04/25 01:00 Iohexol 350 Mg/Ml 100 Ml Infus..Btl IV 02/04/25 01:01 70 ml ONCE ONE Administration Ketorolac Tromethamine 15 mg 02/04/25 02:02 02/04/25 02:16 Ketorolac Tromethamine 15 Mg/Ml Vial IVPUSH 02/04/25 02:03 15 mg ONCE ONE Administration Metoclopramide HCl 10 mg 02/04/25 00:36 02/04/25 01:00 Metoclopramide Hcl 10 Mg/2 Ml Vial IVPUSH 02/04/25 00:37 10 mg ONCE ONE Administration Medical Decision Making Medical Decision Making MDM Narrative: Patient is 24 years old has a 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 Presents today with left-sided weakness. The symptoms started at about 15:00 also associated with a migraine headache the headache is very typical of her migraine it is frontal is worse with light it caused her to be weak patient is from home. I did a CT head grossly negative. We gave her the typical migraine treatment including Reglan, Benadryl with moderate relief the pain was 10/10 now 6/10. We did a CTA angio. My interpretation CTA was grossly negative for any large vessel occlusion. Still waiting for radiology's interpretation. Patient is 24 years old now has right-sided weakness. Has a history of migraine with hemiplegia. Will likely admit overnight for observation. In stable condition. Less likely to have a stroke. Not a great candidate for tPA as patient's symptoms greater than 4-1/2 hours. Not a candidate for clot retrieval as there is no large vessel occlusion. More likely this is from my migraine. But given patient's age patient's symptoms will observe. CTA was read by radiology's grossly negative. Differential Diagnosis Differential Diagnoses: The differential diagnosis associated with the presentation includes Hemiplegic migraine Admission/Observation Consideration of admission/observation: Escalation of care including admission/observation considered Consult Healthcare Provider Management of the patient was discussed with: Hospitalist Lab Data MDM Lab Attestation statement: I reviewed the patient's lab results. 02/04/25 01:12 02/04/25 01:12 Labs: Lab Results 02/03/25 02/04/25 02/04/25 Range/Units 19:27 01:12 02:10 WBC 14.2 H (4.8-10.8) X10*3/uL RBC 5.14 (4.20-5.50) X10*6/uL Hgb 14.4 (12.0-16.0) g/dl Hct 43.8 (37.0-47.0) % MCV 85.2 (80.0-98.0) fL MCH 28.0 (27.0-33.0) pg MCHC 32.9 (31.0-35.0) g/dl RDW 12.5 (11.0-16.0) % Plt Count 294 (160-400) X10*3/uL MPV 9.8 (9.4-12.3) fL Immature Gran % (Auto) 0.2 (0.0-0.4) % Neut % (Auto) 56.2 (45-73) % Lymph % (Auto) 34.3 (20-40) % [place] % (Auto) 8.0 (2-11) % Eos % (Auto) 0.8 (0-4) % Baso % (Auto) 0.5 (0-2) % Lymph # (Auto) 4.9 (1.2-4.9) X10*3/uL [place] # (Auto) 1.1 (0.1-1.2) X10*3/uL Eos # (Auto) 0.1 (0.0-0.4) X10*3/uL Baso # (Auto) 0.1 (0.0-0.2) X10*3/uL Abs Immat Gran (auto) 0.03 (0.00-0.03) X10*3/uL Absolute Neuts (auto) 8.0 (2.0-8.3) x10*3/uL Absolute Nucleated RBC 0.000 (0.0-0.012) X10*3/uL Nucleated RBC % (auto) 0.0 (0.0-0.2) /100WBC PT 12.2 (11.2-13.5) SEC INR 1.0 (0.9-1.1) Sodium 140 (135-145) mmol/L Potassium 3.4 (3.3-5.1) mmol/L Chloride 110 H (96-108) mmol/L Carbon Dioxide 23 (22-29) mmol/L Anion Gap 10 L (12-20) BUN 9 (9-16) mg/dL Creatinine 0.70 (0.5-1.4) mg/dL Estim Creat Clear Calc 140.3 Estimated GFR > 60 Random Glucose 94 (60-115) mg/dL Calcium 8.8 (8.4-10.2) mg/dL Total Bilirubin 0.2 (0.0-1.0) mg/dL Direct Bilirubin < 0.2 (0.0-0.5) mg/dL AST 19 (5-31) U/L ALT 19 (0-31) U/L Alkaline Phosphatase 99 (39-117) U/L Total Protein 7.0 (6.5-8.0) g/dL Albumin 4.2 (3.5-5.0) g/dL Beta HCG, Quant < 2 mIU/mL Urine Color Yellow Urine Appearance Clear Urine pH 6.5 (5.0-9.0) Ur Specific [place] >= 1.030 H (1.005-1.025) Urine Protein Trace (Neg-Trace) mg/dL Urine Glucose (UA) Negative (Negative) mg/dL Urine Ketones Negative (Negative) mg/dL Urine Blood Moderate (2+) H (Negative) Urine Nitrite Negative (Negative) Ur Leukocyte Esterase Negative (Negative) Urine RBC 11-20 H (0-2) /HPF Urine WBC 6-10 H (0-5) /HPF Ur Squamous Epith Cells 3-5 (0-2) /HPF Urine Bacteria None Seen (None Seen) Hyaline Casts 0-2 (0-2) /LPF Urine Opiates Screen Not Detected (Not Detect) Ur Buprenorphine Scrn Not Detected (Not Detect) ng/mL Ur Oxycodone Screen Not Detected (Not Detect) ng/mL Urine Methadone Screen Not Detected (Not Detect) ng/mL Urine Fentanyl Screen Not Detected (Not Detect) Ur Barbiturates Screen Not Detected (Not Detect) Ur Phencyclidine Scrn Not Detected (Not Detect) Ur Amphetamines Screen Not Detected (Not Detect) U Benzodiazepines Scrn Not Detected (Not Detect) Urine Cocaine Screen Not Detected (Not Detect) U Marijuana (THC) Screen Not Detected (Not Detect) Influenza Type A (PCR) NEGATIVE (Negative) Influenza Type B (PCR) NEGATIVE (Negative) RSV RNA Qual (PCR) NEGATIVE (Negative) SARS-CoV-2 RNA (RT-PCR) NEGATIVE (Negative) Radiology Impression Discussion of test interpretation with radiology: I have reviewed the radiologist's reading. Chronic Conditions History of migraine Discharge Plan Discharge Clinical Impression: Migraine Patient Disposition: Admitted As Inpatient Print Language: Haitian
[2025-02-03 20:23] LABS: Resp Syncy Virus RNA Qual PCR NEGATIVE (Negative); SARS COV2 PCR INHOUSE NEGATIVE (Negative)
[2025-02-03 22:05] VITALS: BP 111/72; PULSE 71; RESP 16; TEMP 36.8; O2SAT 97
--- OUTSIDE RECORDS SUMMARY | 2025-02-03 22:21 | XMS_ITS | Continuity of Care Document ---
Author Organization ID - [facility], [facility] Address [address] [place] [address] Care Team Providers Care Meter/Relay Technician Name Role Phone STEPHAN POZO Referring Provider [phone] Assessment Encounter Date Assessment Date Assessment LastModified by Organization Details LastModified Time 11/20/2024 11/20/2024 24 year old female returns [...] worsen, or if any questions or concerns. GIL Negro- Patient presents with her mother to review the CT sinus. CT showing turbinate hypertrophy and minimal mucosal edema. no polyps . My exam shows normal voice. Normal respirations. Normal mood and affect. She likely has sinus migraine, so will continue to work with neurology. Chronic allergic rhinitis with option of INS and/or oral antihistamines. I reviewed the SPIKE DRIVER's note and agree with their findings and [...] record ed. [email or web address] Not Available 2024 13:38:54 11/23/1911/13/2024 CT, sinus es, w/o contr ast No observ ation record ed. BARCODE Not Available 2024 11:20:20 Result Notes None recorded. Procedures Surgical History Date Name Laterality Status Provider Name and Address Organization Details Recorded Time Nasal Endoscopy (Flexible) completed Ashish Brown MD [address] [place] [address], [phone], [facility] - [facility] 08/29/2024 11:20:17 Imaging Results [...] Available Not Available No t Available Vitals None Recorded Social History Question Answer Notes LastModified by Organizat ion Details LastModified Time Tobacco Smoking Status Never Smoker Deb davis [place] - [facility] 08/29/2024 09:30:05 Alcohol Use Former [email or web address] Information n ot available 08/29/2024 History Of Noise Exposure No [email or web address] Information not available 08/29/2024 Sex: Unknown Functional Status Question Answer Note LastModified by Organizat ion Details LastModified Time Do you use any illicit or recreational drugs? No [email or web address] Information not available 08/29/2024 Do you or have you ever used any other forms of tobacco or nicotine? No [email or web address] Information not available 08/29/2024 Mental Status None recorded. Family History Nothing Reported. Medical History Condition Response Diabetes N Asthma/COPD N Heart Disease N Hypertension N Gynecological HistoryNo gynecological history recorded. Obstetrics History GPAL:G 0 P 0 0 0 0 Past Encounters Encounter ID Performer Location Encounter Start Date Encounter Closed Date Diagnosis/Indication Diagnosis SNOMED-CT Code Diagnosis ICD10 Code Diagnosis IMO Codes Diagnosis Note [id number] Ashish Brown MD [facility] [address] [place] [address] 11/20/2024 11:28:03 11/20/2024 19:07:13 Chronic maxillary sinusitis 46099086 J32.0 2493 Chronic rhinitis 6176241 6 J31.0 2545 Migraine 58748720 G43.90 9 68682 Health Concerns Section Related Observation LastModified by Organization Detai ls LastModified Time None Recorded Concern Status LastModified by Organization Details LastModified Time None Recorded Payers Encounter Date Sequence Insurance Name Policy Number Policy Joiner Covered Member ID Joiner Member ID Guarantor Name 11/20/2024 1 [facility] - HEALTH NET PLAN (MEDICAID HMO) BAM Valenzuela [id number] Sarah Knox Notes Date Note Type Note Provider Name and Address Organization Details Recorded Time 11/20/2024 text/html RTC re the sinuses with [...] with unclear benefit due to concurrent illnesshas [facility] but requires prior [facility].Neurolog ist does [...] of month. Unable to obtain MRI from [facility] despite requests.Chest X-ray normal per recent evaluation [...] though less frequent Ashish Brown MD [address] [facility] [address] , [place], [address], [facility] - [facility] 11/20/2024 16:04:07 OBGyn Episode No OBEpisode recorded.
--- OUTSIDE RECORDS SUMMARY | 2025-02-03 22:21 | XMS_ITS | Clinical Summary ---
Author Organization [facility] Prior to 07/22/[address] [place] [address] Care Team Providers Care Licensing Registration Examiner Name Role Phone Lorrie Villegas MD Primary Care Provider [phone] Medications Medication Sig Dispensed Refills Start Date [...] age to complete this topic Care Teams Licensing Registration Examiner Relationship Specialty Start Date End Date Lorrie Villegas MD PCP - General Internal Medicine 05/06/23
--- OUTSIDE RECORDS SUMMARY | 2025-02-03 22:21 | XMS_ITS | Data Portability ---
Author Organization [place] - [facility], [facility] Address [address] [place] [address] Care Team Providers Care Manager Food Name Role Phone STEPHAN POZO Referring Provider [phone] Assessment Encounter Date Assessment Date Assessment LastModified [...] if any questions or concerns. Yamileth Whitfield [facility] Patient presents with persistent sinus symptoms. MRI images not available. Report of mucosal thickening. My exam shows some improvement int he nasal mucosal edema. Still congested with hyponasal voice. Question of CRS remains, despite medical therapy. Will obtain CT sinus to been assess. Follow up in 1 month. She will bring the CD of the CT. I reviewed the BLUE LEATHER SETTER's note and agree with their findings and [...] if any questions or concerns. Yamileth Whitfield [facility] Patient presents with her mother to review the CT sinus. CT showing turbinate hypertrophy and minimal mucosal edema. no polyps . My exam shows normal voice. Normal respirations. Normal mood and affect. She likely has sinus migraine, so will continue to work with neurology. Chronic allergic rhinitis with option of INS and/or oral antihistamines. I reviewed the BLUE LEATHER SETTER's note and agree with their findings and [...] Nasal Endoscopy (Flexible) completed Ashish Brown MD [address] [place] [address], [phone], [facility] - [facility] 08/29/2024 11:20:17 Imaging Results [...] Updated DateTime 08/29/2024 167.64 cm 38.7 kg/m2 689991.17 g Deb Berg MA - [facility] 08/29/2024 09:29:51 Social History Question Answer Notes LastModified by Organizat [employer] Details LastModified Time Tobacco Smoking Status Never Smoker Deb davis [place] - [facility] 08/29/2024 09:30:05 Alcohol Use Former [email or web address] Information n ot available 08/29/2024 History Of Noise Exposure No [email or web address] Information not available 08/29/2024 Sex: Unknown Functional Status Question Answer Note LastModified by [employer] Details LastModified Time Do you use any illicit or recreational drugs? No [email or web address] Information not available 08/29/2024 Do you or have you ever used any other forms of tobacco or nicotine? No [email or web address] Information not available 08/29/2024 Mental Status None recorded. Family History Nothing Reported. Medical History Condition Response Asthma/COPD N Diabetes N Heart Disease N Hypertension N Gynecological HistoryNo gynecological history recorded. Obstetrics History GPAL:G 0 P 0 0 0 0 Past Encounters Encounter ID Performer Location Encounter Start Date Encounter Closed Date Diagnosis/Indication Diagnosis SNOMED-CT Code Diagnosis ICD10 Code Diagnosis IMO Codes Diagnosis Note [id number] Ashish Brown MD [facility] [address] [place] [address] [place] [address] 08/29/2024 09:30:42 08/29/2024 18:35:47 Chronic maxillary sinusitis 86088565 J32.0 2493 Recurrent acute maxillary sinusitis 1256836374 5008728 J01.01 2610685 Polyp of l eft nasal cavity 509216191 J33.0 [id number] Ashish Brown MD [facility] [address] [place] [address] [place] [address] 10/05/2024 09:36:00 10/10/2024 21:42:21 Chronic maxillary sinusitis 67790426 J32.0 2493 Polyp of l eft nasal cavity 038752086 J33.0 0118058333 Chronic rhinitis 3091869 6 J31.0 2545 [id number] Ashish Brown MD [facility] [address] [place] [id number] 11/20/2024 11:28:03 11/20/2024 19:07:13 Chronic maxillary sinusitis 74350008 J32.0 2493 Chronic rhinitis 4752289 6 J31.0 2545 Migraine 09833524 G43.90 9 68882 Health Concerns Section Related Observation LastModified by Organization Detai ls LastModified Time None Recorded Concern Status LastModified by Organization Details LastModified Time None Recorded Advance Directives Directive None Recorded Payers Insurance Date Sequence Insurance Name Policy Number Policy Joiner Covered Member ID Joiner Member ID Guarantor Name 11/17/2024 1 [facility] - HEALTH NET PLAN (MEDICAID HMO) [facility] Sarah Valenzuela [id number] Sarah Knox 09/26/2024 1 [place] [facility] Sarah Knox [id number] Sarah Knox 09/26/2024 1 [place] [facility] Sarah Hillss [id number] Sarah Knox Notes Date Note Type Note [...] though less frequent. Ashish Brown MD [address] [facility], [place], [address], [place] [facility] 08/29/2024 14:22:47 10/05/2024 [...] of month. Unable to obtain MRI from [facility] despite requests.Chest X-ray normal per recent evaluation [...] though less frequent. Ashish Brown MD [address] [facility] [address], [place], [address], [facility] 10/10/2024 20:49:26 11/20/2024 text/html [...] with unclear benefit due to concurrent illnesshas [facility] available but requires prior authorization.Neurolog ist does [...] of month. Unable to obtain MRI from [facility] despite requests.Chest X-ray normal per recent evaluation [...] though less frequent Ashish Brown MD [address] [facility] [address] , [place], [address], [facility] - [facility] 11/20/2024 16:04:07 OBGyn Episode No OBEpisode recorded.
--- OUTSIDE RECORDS SUMMARY | 2025-02-03 22:21 | XMS_ITS | Encounter Summary ---
Author Organization [facility] Address [address] [place] [place] [phone] Phone Care Team Providers Care Cognos Administrator Name Role Phone Jennifer Weir NP Primary Care Provider Unavailabl e Encounter Details Date Type Department Care Team (Late st Contact Info) Description 10/08/2016 Conversion Encounter [facility] - [address] [id number] Social History Tobacco Use Types Packs/Day Years [...] on filedocumented in this encounter Care Teams Cognos Administrator Relationship Specialty Start Date End Date Jennifer Weir NP PCP - General Pediatrics 11/15/20 documented as of this encounter
--- OUTSIDE RECORDS SUMMARY | 2025-02-03 22:21 | XMS_ITS | Clinical Summary ---
Author Organization [facility] Address [address] [place] [address] Phone Care Team Providers Care Acoustical Tile Patternmaker Name Role Phone Cathi Zimmerman MD Primary Care Provider [phone] Allergies Active Allergy Reactions Criticality Noted Date Comments [place] 05/04/2023 Medications LORazepam (Ativan) 0.5 mg tablet 1 po 1 hour prior to MRI, may repeat 1 at time of MRI if needed 5 tablet 5 Active medroxyPROGESTE Sahun 150 mg/mL injection INJECT 1 MILLILITER INTRAMUSCULAR EVERY 90 DAYS Active ketorolac (TORADOL) 10 mg tablet PLEASE SEE ATTACHED FOR DETAILED DIRECTIONS Active ubrogepant (UBRELVY) 100 mg tabletIndicatio ns:Chronic migraine with aura without status migrainosus, not intractable Take 1 tablet (100 mg total) by mouth 1 (one) time if needed for migraine (may repeat 1 tab 2 hours later if needed, max 2 tablets/day) for up to 32 doses. 8 tablet 3 5 Active Active Problems Problem Noted Date Diagnosed Date Severe obesity (BMI 35.0-35.9 with comorbidity) 01/07/2024 Kidney stones 05/17/2023 GERD (gastroesophageal reflux disease) 4 Migraine 05/04/2023 Depression 09/30/2022 Mood swings 09/02/2020 Encounters Date Type Department Care Team Description 12/28/2024 6:00 PM EST - 12/28/2024 11:59 PM EST Hospital Encounter [facility] MRI [address] [place] [address] Chronic migraine with aura without status migrainosus, not intractable; Numbness and tingling in both hands Discharge Disposition: Home or Self Care 12/08/2024 12:00 PM EDT Telemedicine [facility] [address] [place] [phone] Carla San PA Chronic migraine with aura without status migrainosus, not intractable (Primary Dx); Numbness and tingling in both hands 11/20/2024 Results Follow-Up Adult Medicine [facility] [address] [place], [place] [phone] Nori Pappas [place] 11/13/2024 2:42 PM EDT - 11/13/2024 11:59 PM EDT Hospital Encounter CT Scan - [facility] [address] [place], [place] [phone] Chronic sinusitis, unspecified Discharge Disposition: Home or Self Care from Last 3 Months Immunizations Immunization Administration [...] Record ed Within the last 3 months, beatriz w many times did you visit the [...] for your loved ones. For example, child care sitter or elderly care for an older adult? [...] Description 02/12/2025 3:00 PM EST Office Visit [facility] [address] [facility] [address] [place] [address] Marisol Damian MD [address] [place] [address] 02/13/2025 2:00 PM EST Office Visit Adult Medicine [facility] [address] [place] [address] Cathi Zimmerman MD [address] [place] [phone] Health Maintenance Due Date Last Done Comments Drug Screen 1999 Non-Opioid Controlled Substance Agreement 1999 Cervical Cancer Screening: Pap Smear 02/07/2020 DTaP,Tdap,and Td Vaccines (7 - Td or Tdap) 10/24/2020 10/24/2010, 05/16/2003, 09/15/2000, Additional history exists HIV Screening 03/24/2023 Hepatitis C Screening 03/24/2023 COVID-19 Vaccine (2024- season) 2024 Influenza Vaccine (#1) 2024 9, 11/05/2016, 11/28/2015, Additional history exists Social Influencers of Health Screening 12/08/2025 12/08/2024 Cholesterol Screening (Lipid Panel) 11/02/2028 11/03/2023, 11/03/2023 [...] 05/2014, 10/24/2013 Meningococcal ACWY Vaccine Completed 04/30/2015, Depression Screening Completed 12/08/2024 Meningococcal B Vaccine Aged Out No l onger eligible based on patient's age to complete this topic RSV Immunization Patients Under 20 months Aged Out No longer eligible based on patient's age to complete this topic Procedures Procedure Name Priority Date/Time Associated Diagnosis Comments MR CERVICAL SPINE WO CONTRAST Routine 12/28/2024 6:35 PM EST Chronic migraine with aura without status migrainosus, not intractable Numbness and tingling in both hands CT SINUSES WO CONTRAST Routine 11/13/2024 2:50 PM EDT Chronic sinusitis, unspecified LIPID PANEL Routine 11/03/2023 from Last 3 Months or Most Recently Relevant to Health Maintenance Results * MR Cervical Spine wo Contrast (12/28/2024 6:35 PM EST) Anatomical Region Laterality Modality C-spine, Spine Magnetic Resonan ce 01/01/2025 1:07 PM EST Impressions 01/01/2025 1:48 PM EST Normal cervical spine MRI without contrast. -------- FINAL REPORT -------- Dictated By: JT MOTA Dictated Date: 01/01/2025 13:07 ET Assigned Physician: JT MOTA Reviewed and Electronically Signed By: NAKUL, JT Signed Date: 01/01/2025 13:48 ET Workstation ID: [id number] Transcribed By: Self Edit Transcribed Date: 01/01/2025 13:07 ET Narrative 01/01/2025 1:48 PM EST PROCEDURE: Cervical spine MRI INDICATION: Numbness and tingling TECHNIQUE: Multiplanar, multisequence MRI of the Cervical spine Without contrast. COMPARISON: No priors available. FINDINGS: Motion degraded exam. Straightening of the normal cervical lordosis, likely positional. No fracture or suspicious marrow replacing lesion. Disc height and signal are maintained. Cervical facet joints are normal. Cervical cord is normal in signal and morphology. No epidural collection or mass is seen within the spinal canal. Paraspinal muscles are normal. Foramen magnum is normal. Findings by level: C2-C3: No focal disc protrusion, facet arthropathy, foraminal stenosis, or spinal canal stenosis. C3-C4: No focal disc protrusion, facet arthropathy, foraminal stenosis, or spinal canal stenosis. C4-C5: No focal disc protrusion, facet arthropathy, foraminal stenosis, or spinal canal stenosis. C5-C6: No focal disc protrusion, facet arthropathy, foraminal stenosis, or spinal canal stenosis. C6-C7: No focal disc protrusion, facet arthropathy, foraminal stenosis, or spinal canal stenosis. C7-T1: No focal disc protrusion, facet arthropathy, foraminal stenosis, or spinal canal stenosis. Procedure Note Jt Mota MD - 01/01/2025 PROCEDURE: Cervical spine MRI INDICATION: Numbness and tingling TECHNIQUE: Multiplanar, multisequence MRI of the Cervical spine Withoutcontrast. COMPARISON: No priors available. FINDINGS: Motion degraded exam. Straightening of the normal cervical lordosis, likely positional. No fracture or suspicious marrow replacing lesion. Disc height and signal are maintained. Cervical facet joints are normal. Cervical cord is normal in signal and morphology. No epidural collectionor mass is seen within the spinal canal. Paraspinal muscles are normal. Foramen magnum is normal. Findings by level: C2-C3: No focal disc protrusion, facet arthropathy, foraminal stenosis, orspinal canal stenosis. C3-C4: No focal disc protrusion, facet arthropathy, foraminal stenosis, orspinal canal stenosis. C4-C5: No focal disc protrusion, facet arthropathy, foraminal stenosis, orspinal canal stenosis. C5-C6: No focal disc protrusion, facet arthropathy, foraminal stenosis, orspinal canal stenosis. C6-C7: No focal disc protrusion, facet arthropathy, foraminal stenosis, orspinal canal stenosis. C7-T1: No focal disc protrusion, facet arthropathy, foraminal stenosis, orspinal canal stenosis. IMPRESSION: Normal cervical spine MRI without contrast. -------- FINAL REPORT -------- Dictated By: JT MOTA Dictated Date: 01/01/2025 13:07 ET Assigned Physician: JT MOTA Reviewed and Electronically Signed By: JT MOTA Signed Date: 01/01/2025 13:48 ET Workstation ID: [id number] Transcribed By: Self Edit Transcribed Date: 01/01/2025 13:07 ET Carla LEMUS IMRob MRI PROCEDURES Final Res ult * CT Sinuses wo Contrast (11/13/2024 2:50 [...] Signed Date: 11/14/2024 14:18 ET Workstation ID: [id number] Transcribed By: Self Edit Transcribed Date: 11/13/2024 [...] Signed Date: 11/14/2024 14:18 ET Workstation ID: [id number] Transcribed By: Self Edit Transcribed Date: 11/13/2024 19:49 ET Cathi Zimmerman MD IM CT PROCEDURES Final Result * (ABNORMAL) Lipid panel (11/03/2023) LDL/HDL Ratio 4 0 - 4 Triglycerides 90 0 - 150 mg/dL Cholesterol 176 0 - 200 mg/dL HDL 40 >=40 mg/dL LDL Cholesterol 118(A) 0 - 100 mg/dL Blood Venous blood specimen / Unknown Historical Provider LAB BLOOD ORDERABLES Sandy l Result from Last 3 Months or Most Recently Relevant to Health Maintenance Insurance [facility] Care Teams Acoustical Tile Patternmaker Relationship Specialty Start Date End Date Cathi Zimmerman MD [address] [place] [phone] PCP - General Internal Medicine 05/06/23
--- OUTSIDE RECORDS SUMMARY | 2025-02-03 22:22 | XMS_ITS | Encounter Summary ---
Author Organization [facility] Address [address] [place] [address] Phone Care Team Providers Care Flow Coordinator Name Role Phone Jennifer Weir NP Primary Care Provider Unavailabl e Encounter Details Date Type Department Care Team (Late st Contact Info) Description 12/28/2013 Documentation [facility] [place] [place] Family Medicine [address] [place] [address] Family Medicine, Physician [address], [place] [id number] Social History Tobacco Use Types Packs/Day Years [...] on filedocumented in this encounter Care Teams Flow Coordinator Relationship Specialty Start Date End Date Jennifer Weir NP PCP - General Pediatrics 11/15/20 documented as of this encounter
--- OUTSIDE RECORDS SUMMARY | 2025-02-03 22:23 | XMS_ITS | Clinical Summary ---
Author Organization [facility] Address [address] [place] [id number] Phone Care Team Providers Care Bowl Sander Name Role Phone Jennifer Weir NP Primary Care Provider Unavailabl e Allergies Active Allergy Reactions Criticality Noted Date Comments Ramer Extract Hives 10/07/2018 Medications Etonogestrel (NEXPLANON SC) Inject under the skin. Active Active Problems Problem Noted Date Diagnosed Date History of elective 09/02/2020 Overview (09/05/2020): [facility]; says she does not use protection as she is w/ her boyfriend of 5 years; advised need money market clerk: pt defer STI serology labs for money market clerk Assessment & Plan (09/05/2020 7:01 AM EDT): [facility]; says she does not use protection as she is w/ her boyfriend of 5 years; advised need money market clerk: pt defer STI serology labs for money market clerk Mood swings 09/02/2020 Assessment & Plan (09/05/2020 6:28 AM EDT): In and out of therapy; depression pt says maybe I was told maybe I have Bipolar too warm hand off Rimma Kwok PHQ-9 score 16 Gastroesophageal reflux disease without esophagi tis 02/24/2019 Overview (02/24/2019): Seen by [facility] adult GI Pantoprazole (Protonix) Assessment & Plan (09/02/2020 4:19 PM EDT): No follow since covid 19; off PPI needs to see Adult GI and likely would need an endoscopy 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 Procedure Name Priority Date/Time Associated Diagnosis Comments CHLAMYDIA AND GONORRHEA, AMPLIFIED Routine 09/02/2020 3:16 PM EDT Screening examination for bacterial and spirochetal disease from Last 3 Months or Most Recently Relevant to Health Maintenance Results * Due to [place] Ori[place] law, this organization might not be sharing sensitive test results. * Chlamydia and Gonorrhoea, Amplified (09/02/2020 3:16 PM EDT) Chlamydia Trachomatis, DNA Probe NEGATIVE (NEG) [facility] Comment: No Chlamydia Trachomatis RNA detected in this patient's sample (REFERENCE RANGE/NORMAL VALUE: NOT DETECTED) Note: This test uses electronic coils supervisor- mediated amplification method to detect rRNA from C. Trachomatis URINE GC AMP PROBE NEGATIVE (NEG) [facility] Comment: No Neisseria Gonorrhoeae RNA detected in this patient's sample (REFERENCE RANGE/NORMAL VALUE: NOT DETECTED) NOTE: This test uses electronic coils supervisor-mediated amplification method to detect rRNA from N.Gonorrhoeae. [...] without risk of sexual abuse. Consult the [facility] if needed. Contact phone number . Therapeutic failure or success cannot be determined with the Aptima Combo2 assay since nucleic acid may persist following appropriate antimicrobial therapy. The Centers for Disease Control and Prevention (CDC) recommends confirmatory retesting using culture or a different nucleic acid amplification test when positive results occur, if indicated. Testing performed or reported by [facility], a Service of [facility], [address] [place] [address] Wilmer Nino MD, Signal Apprentice Urine 09/02/2020 3:16 PM EDT 09/02/2020 10:16 PM EDT us Jennifer Weir NP LAB MICROBIOLOGY - GENERAL ORDER LEBRON Final Result [facility] from Last 3 Months or Most Recently Relevant to Health [place] [address] [facility] Care Teams Bowl Sander Relationship Specialty Start Date End Date Jennifer Weir NP PCP - General Pediatrics 11/15/20
--- OUTSIDE RECORDS SUMMARY | 2025-02-03 22:24 | XMS_ITS | Patient Health Record ---
Author Organization [email or web address] Address [address] [facility] [facility] [address] [place] [address] Care Team Providers Care Rotor Winder Name Role Phone STEPHAN POZO M.D. Primary Care Provider Unavail able MAGNUS CAMACHO Unavailable [phone] Allergies Allergen (clinical drug ingredient) Drug/Non Drug Allergy documented on EMR Reaction Allergy Type Onset Date Status Non-steroidal anti-inflammatory agent (FN) NSAIDs headaches/twitch ing Drug Allergy Active Results Component Value Reference Range Notes [id number] IGP rfx No Cultur e Under 30 Reviewed date:11/02/2024 03:45:06 PM Interpretation: Performing Lab:[facility], [address], [address], [place], Phone - [phone], Director - [facility] Notes/Report: No. of containers..01 ThinPrep Vial Dates / Results....NEVER Clinical Information:VAG/CERV DEPO [id number] DIAGNOSIS: NEGATIVE FOR IN TRAEPITHELIAL LESION OR MALIGNANCY. Specimen adequacy: Satisfactory for evaluation. Endocervical and/or squamous metaplastic cells (endocervical component) are present. Clinician provided ICD10: Z01.419 Z11.51 Performed by: Casper Guido , Night Clerk (ASCP) . . Note: The Pap smear [...] Report Reviewed date:11/02/2024 03:44:47 PM Interpretation: Performing Lab:[facility], [address], [address], [place], Phone - [phone], [facility] Notes/Report: Clinical Information:VAG/CERV DEPO [id number] Dates / Results....NEVER No. 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) Active confirmed Problem COVID-19 (857958661) COVID-19 (U07.1) Active confirmed Vital Signs Temperature 97.8 degrees Fahrenheit 11/16/2024 Blood pressure diastolic 80 mm Hg 11/16/2024 Height 65.5 in 11/16/2024 Blood pressure systolic 118 mm Hg 11/16/2024 Weight 210 lbs 11/16/2024 BMI 34.41 kg/m2 11/16/2024 Encounters Encounter Location Date Provider Diagnosis [facility] [email or web address] [facility] [employer] [address] [place] [address] 10/31/2024 MAGNUS CAMACHO Encounter for gynecological examination (general) (routine) without abnormal findings Z01.419 ; Encounter for surveillance of injectable contraceptive Z30.42 and Encounter for screening for human papillomavirus (HPV) Z11.51 [facility] [employer] [address] [place] [address] 11/16/2024 MAGNUS CAMACHO Encounter for surveillance of [...] Provider Name:MAGNUS Anthony, 11/05/2025 01:00:00 PM, [address] [facility] [facility], [address], [place], [address], Insurance Providers Payer Name Payer Address Payer Phone Subscriber Number Group Number Insured Name Patient Relationship to Insured Coverage Start Date Coverage End Date [facility] [address] [address] [place] [address] [phone] [id number] JULIA MARROQUIN Self - patient is the insured Medications Administered Medication Instructions Date of Administration Dosage Notes DEPO PROVERA 11/16/2024 150 mg Medical (General) History Medical History History ICD Code Hemiplegic migraine, not intractable, wi thout status migrainosus G43.409 COVID-19 U07.1
[2025-02-04] MEDS: iohexoL 350 MG/ML 100 ML INFUS..BTL 70 ML IV (01:00)
[2025-02-04 01:10] VITALS: BP 154/93; PULSE 113; RESP 20; TEMP 36.6; O2SAT 99
[2025-02-04 01:17] LABS: MANUAL DIFF FLAG NO
[2025-02-04 01:20] LABS: Hematocrit 43.8 % (37.0-47.0); Hemoglobin 14.4 g/dl (12.0-16.0); Imm Gran Abs Auto 0.03 X10*3/uL (0.00-0.03); Imm Gran Pct Auto 0.2 % (0.0-0.4); Lymphocytes Absolute Auto 4.9 X10*3/uL (1.2-4.9); Mean Corpuscular HGB Conc 32.9 g/dl (31.0-35.0); Mean Corpuscular Hemoglobin 28.0 pg (27.0-33.0); Mean Corpuscular Volume 85.2 fL (80.0-98.0); NRBC Abs Auto 0.000 X10*3/uL (0.0-0.012); NRBC Pct Auto 0.0 /100WBC (0.0-0.2); Platelet Count 294 X10*3/uL (160-400); Red Blood Count 5.14 X10*6/uL (4.20-5.50); White Blood Count 14.2 X10*3/uL (4.8-10.8)
[2025-02-04 01:26] LABS: INTERNATIONAL NORM RATIO 1.0 (0.9-1.1); Prothrombin Time 12.2 SEC (11.2-13.5)
[2025-02-04 01:34] LABS: Alanine Aminotransferase 19 U/L (0-31); Albumin Level 4.2 g/dL (3.5-5.0); Alkaline Phosphatase 99 U/L (39-117); Anion Gap 10 (12-20); Aspartate Amino Transferase 19 U/L (5-31); Blood Urea Nitrogen 9 mg/dL (9-16); Calcium 8.8 mg/dL (8.4-10.2); Carbon Dioxide 23 mmol/L (22-29); Chloride 110 mmol/L (96-108); Creatinine Clr Calc Pharmacy 140.3; Estimated Glomerular Filt Rate > 60; Potassium 3.4 mmol/L (3.3-5.1); Sodium 140 mmol/L (135-145); Total Protein 7.0 g/dL (6.5-8.0)
[2025-02-04 02:20] VITALS: BP 132/77; PULSE 85; RESP 20; TEMP 36.6; O2SAT 98
[2025-02-04 02:24] LABS: Appearance Urine Clear; Glucose Urine UA Negative (Negative); PH 6.5 (5.0-9.0); Specific Gravity - Urine >= 1.030 (1.005-1.025); UMIC TRIGGER UACC YES
[2025-02-04 02:26] LABS: Cannabinoid Screen Urine Not Detected (Not Detect); UACC Culture Trigger YES
[2025-02-04 03:36] VITALS: BP 113/68; PULSE 77; RESP 20; TEMP 36.6; O2SAT 97
--- NOTE | 2025-02-04 04:58 | P.CONHOSP_ITS ---
History of Present Illness Data of Consult Service Date: 02/04/25 Requesting physician: Brittnee Gomez Primary Care Provider: Cathi Zimmerman MD [facility] Reason for consult: migraine Pt is a 24 yo Caucsian female with PMH migraine, nephrolithiasis, menorrhagia on depo provera last 10 years presented to the ED earlier to migraine DOMINGUEZ that has bee persisting for the last 2 weeks. Migraine does occur with aura. Pt has chronic Left sided weakness and follows with neurology. Pt has had multiple MRIs and is negative for MS, CVA. Pt recently prescribed Ubrelvy by her neurologist and pt has the medication at home but has not yet started taking the medication as prescribed. Pt has not been able to work since September, is applying for disability and can no longer drive. Pt denies loss of bowel or bladder control. Pt has worked with PT in the past with no improvement in symptoms. CT head and CTA head and neck done today were negative for any acute findings. Pt did have one episode of nausea and mild emesis after CT scan but currently symptoms are resolved. Pt denies any recent falls or injury. Pt can ambulate without an assistive device. Pt received toradol in the ED and overall feels DOMINGUEZ has improved but is not completely gone. Pt states the weakness on the left side is at baseline. Pt currently feels safe to return home vs being admitted. Pt cannot take sumitriptan and has never used fioricet. Pt not willing to try fioricet due to the caffeine. UA negaitve for UTI. Pt does have a leukocytosis 14, but no left shift. Labs are otherwise stable. Review of Systems 2 Review of Systems: Pt denies any SOB at rest, Chest pain, current N/V, abd pain, lower leg pain. Pt has left sided weakness which is not new. Pt denies any visual changes, current aura and DOMINGUEZ is rated as mild and improved. Yes all other systems are reviewed and are negative [facility] Medical History (Updated 02/04/25 @ 05:15 by GIL Francisco-) Left-sided weakness Depo-Provera contraceptive status Menorrhagia Migraine Migraine Kidney stones Cognitive capacity: A/O X3 Functional capacity: independent ambulation Patient : No (HCG negative ) Meds Allergies Allergy/AdvReac Type Severity Reaction Status Date / Time cucumber (CUCUMBER) Allergy Unknown HIVES Verified 02/03/25 19:12 Home Medications ?Medication ?Instructions ?Recorded ?Confirmed ?Last Taken ?Type No Known Home Meds 10/25/24 Unknown Hi story Physical Exam 2 Vital Signs and Narrative: Vital Signs: Last Vital Signs Temp 97.9 F 02/04/25 03:36 Pulse 77 02/04/25 03:36 Resp 20 02/04/25 03:36 BP 113/68 02/04/25 03:36 Pulse Ox 97 02/04/25 03:36 O2 Del Method Room Air 02/04/25 03:36 BMI result Body Mass Index 32.7 Pt is alert and orientated X3, in NAD. Neuro: CN II-Xii intact, noted left sided weakness upper and lower ext, no facial dropp or slurred speech, no aphasia HEENT: EOM intact, PERRLA, sclera nonictetic, conjunctive pink, nares patent, oral mucoa moist, thyroid normal in size Cardiac: S1S2 RRR, no murmur, no edema, no JVD RESP: Lungs CTA B ABD: soft, NT EXT: left side lower and upper ext 3/5 compared to right 5/5 : no bladder retention noted Psych: mood stable, insight and judgement good Skin: no new rashes or lesions Results Labs 02/04/25 01:12 02/04/25 01:12 Labs: Laboratory Results - last 24 hr 02/03/25 02/04/25 02/04/25 19:27 01:12 02:10 MCV 85.2 MCH 28.0 MCHC 32.9 RDW 12.5 Plt Count 294 MPV 9.8 Immature Gran % (Auto) 0.2 Neut % (Auto) 56.2 Lymph % (Auto) 34.3 Amelia % (Auto) 8.0 Eos % (Auto) 0.8 Baso % (Auto) 0.5 Lymph # (Auto) 4.9 Amelia # (Auto) 1.1 Eos # (Auto) 0.1 Baso # (Auto) 0.1 Abs Immat Gran (auto) 0.03 Absolute Neuts (auto) 8.0 Absolute Nucleated RBC 0.000 Nucleated RBC % (auto) 0.0 PT 12.2 INR 1.0 Anion Gap 10 L Estim Creat Clear Calc 140.3 Estimated GFR > 60 Random Glucose 94 Calcium 8.8 Total Bilirubin 0.2 Direct Bilirubin < 0.2 AST 19 ALT 19 Alkaline Phosphatase 99 Total Protein 7.0 Albumin 4.2 Beta HCG, Quant < 2 Urine Color Yellow Urine Appearance Clear Urine pH 6.5 Ur Specific [place] >= 1.030 H Urine Protein Trace Urine Glucose (UA) Negative Urine Ketones Negative Urine Blood Moderate (2+) H Urine Nitrite Negative Ur Leukocyte Esterase Negative Urine RBC 11-20 H Urine WBC 6-10 H Ur Squamous Epith Cells 3-5 Urine Bacteria None Seen Hyaline Casts 0-2 Urine Opiates Screen Not Detected Ur Buprenorphine Scrn Not Detected Ur Oxycodone Screen Not Detected Urine Methadone Screen Not Detected Urine Fentanyl Screen Not Detected Ur Barbiturates Screen Not Detected Ur Phencyclidine Scrn Not Detected Ur Amphetamines Screen Not Detected U Benzodiazepines Scrn Not Detected Urine Cocaine Screen Not Detected U Marijuana (THC) Screen Not Detected Influenza Type A (PCR) NEGATIVE Influenza Type B (PCR) NEGATIVE RSV RNA Qual (PCR) NEGATIVE SARS-CoV-2 RNA (RT-PCR) NEGATIVE ECG Prior ECG tracings: not available for review Imaging Radiologist's Impressions: CT HEAD FINDINGS: There is no evidence of an acute infarct or intraparenchymal hemorrhage. There is no mass effect, midline shift, or extra-axial blood. The ventricles are normal in size without evidence of hydrocephalus. The bone windows are unremarkable. IMPRESSION: 1. No acute disease in the brain. CTA HEAD and NECK CTA NECK: Sagittal and coronal MIP 3D reconstruction images were performed. Exam is limited due to mild patient motion artifact. There is no definite significant stenosis, occlusion, dissection, aneurysm, or vascular malformation. There is no active bleeding.Common carotid arteries, internal carotid arteries, external carotid arteries, and vertebral arteries are unremarkable. Reversal of the normal cervical lordosis is noted. Cervical spine is otherwise unremarkable. Upper lungs are unremarkable. CTA HEAD: Sagittal and coronal MIP 3D reconstruction images were performed.There is no significant stenosis, occlusion, dissection, aneurysm, or vascular malformation. There is no active bleeding.Terminal internal carotid arteries, middle cerebral arteries, anterior cerebral arteries, basilar artery, and posterior cerebral arteries are unremarkable. No evidence of dural venous sinus thrombosis. IMPRESSION: 1. Unremarkable CTA neck and CTA head. 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 Migraine does occur with aura. Pt has chronic Left sided weakness and follows with neurology. ED provider requested admission for observation. Hemiplegic Migraine with Aura and chronic left sided weakness Pt received toradol with good effect.Pt did not take the decadron ordered in the ED. Upon assessment and interview, pt felt it was safe to return home vs being admitted for observation. Pt plans to take prescribed Ubrelvy recently provided by neurology upon return home. Pt declined need for PT as she has done this before with no improvement regarding Left sided weakness. Pt advised to discuss further use of depo provera injections Q3M, next is due in 1 month as this can contribute to development of migraine DOMINGUEZ's. Discussed alternatives to include IUD (copper)/ non hormonal BC options. Pt will continue to follow with neurology as an outpatient and next appt is later this month. Pt has received work up for other neurological differentials in the past to include MS. Pt does not have MS. Discussed case with ED provider Dr Benítez and Attending Dr Miranda. All in agreement that discharge home is appropriate at this time. Pt has a leukocytosis without left shift, fever or evidence of infectious process. UA is negative. COVID, FLU and RSV are all negative. Pt advised if migraine persists or pt's develops signs or symptoms of infection (fever, chills, rash etc), she would need to return to the ED. Hemodynamics stable at time of consultation. Discharge completed by ED provider.
[2025-02-04 05:40] VITALS: BP 113/68; PULSE 77; RESP 20; TEMP 36.6; O2SAT 97
== END 2025-02-04 05:46 | disposition home or self-care (01) ==
PROVIDERS: Physician Assistant Medical; Emergency Provider Emergency Medicine Emergency Medical Services; PCP Internal Medicine
DX: G43.401 Hemiplegic migraine, not intractable, with status migrainosus (principal); R53.1 Weakness; Z03.818 Encounter for observation for suspected exposure to other biological agents ruled out
CPT/HCPCS: 36415; 70450; 70496; 70498; 80048; 80076; 80307; 81001; 84702; 85025; 85610; 87086; 87637; 96361; 96374; 96375; 99285; J1100; J1200; J1885; J2765; Q9967

== ENCOUNTER → 2025-02-03 22:17 | Outpatient (BNV) | payer OTHER, SELFPAY | PROVIDERS: Emergency Provider Emergency Medicine Emergency Medical Services; PCP Internal Medicine; Visit Provider Nurse Practitioner Family | DX: G43.401 Hemiplegic migraine, not intractable, with status migrainosus (principal) | CPT/HCPCS: 99283 ==

== ENCOUNTER → 2025-02-04 00:35 | Outpatient (BNV) | payer OTHER, SELFPAY | PROVIDERS: Emergency Provider Emergency Medicine Emergency Medical Services; PCP Internal Medicine; Visit Provider Radiology Diagnostic Radiology | DX: R53.1 Weakness (principal) | CPT/HCPCS: 70450; 70496; 70498 ==